=== PATIENT | female | born 1950 | race Caucasian/White ===

== ENCOUNTER → 2016-11-29 | Outpatient (CLI) | payer MEDICARE, BC | LOC: MW.LAB 13:45 | PROVIDERS: ATTEND Internal Medicine | DX: N18.3 Chronic kidney disease, stage 3 (moderate) (principal) | CPT/HCPCS: 36415; 80069; 85027 ==

== ENCOUNTER → 2016-11-30 | Outpatient (CLI) | payer MEDICARE, BC | LOC: MW.LAB 10:29 | PROVIDERS: ATTEND Internal Medicine | DX: N18.3 Chronic kidney disease, stage 3 (moderate) (principal) | CPT/HCPCS: 81001; 82570; 84156 ==

== ENCOUNTER → 2017-01-06 | Outpatient (CLI) | payer MEDICARE, BC | LOC: MW.CHRC 10:38 | PROVIDERS: ATTEND Family Medicine | DX: I12.9 Hypertensive chronic kidney disease with stage 1 through stage 4 chronic kidney disease, or unspecified chronic kidney disease (principal); N18.9 Chronic kidney disease, unspecified; Z98.84 Bariatric surgery status; D50.9 Iron deficiency anemia, unspecified; I89.0 Lymphedema, not elsewhere classified; N32.81 Overactive bladder; M17.10 Unilateral primary osteoarthritis, unspecified knee | CPT/HCPCS: 36415; 82607; 82652; 82746; 83550; 99215 ==

== ENCOUNTER → 2017-01-12 | Outpatient (CLI) | payer MEDICARE, BC ==
--- NOTE | 2017-01-12 14:29 | CR ---
EXAMINATION: Bilateral knees HISTORY: Pain COMPARISON: None TECHNIQUE: 4 views bilateral FINDINGS: There is medial subluxation of the femurs bilaterally with severe joint space narrowing wi thin all 3 compartments. Osteophyte formation is noted. No fracture or acute osseous abnormality. No joint effusion or soft tissue swelling. IMPRESSION: Advanced osteoarthritic changes within the knees bilaterally.
== END ==
LOC: MW.CHORTHO 07:35
PROVIDERS: ATTEND Orthopaedic Surgery
DX: M25.561 Pain in right knee (principal); M25.562 Pain in left knee; M17.0 Bilateral primary osteoarthritis of knee
CPT/HCPCS: 20610-50; 735642650; 73564-50; 99204; J1040

== ENCOUNTER 2017-05-04 11:55 | Emergency (ER) | payer MEDICARE, BC ==
[2017-05-04] MEDS ORDERED: Sodium Chloride 0.9% 10 ML Syringe FLUSH PRN (11:58)
[2017-05-04] MEDS ORDERED: Sodium Chloride 0.9% 2.5 ML Syringe FLUSH PRN (11:58)
--- NOTE | 2017-05-04 12:03 | EDM.PDOC ---
ED HPI GENERAL MEDICAL PROBLEM - General Stated Complaint: CONFUSION Time Seen by Provider: 05/04/17 12:02 Source of Information: Reports: Patient, EMS History Limitations: Reports: Altered Mental Status - History of Present Illness INITIAL COMMENTS - FREE TEXT/NARRATIVE: HISTORY AND PHYSICAL: []66-year-old female brought in by EMS altered mental status History of Present Illness: []Last known normal was last night about 10:30 PM. noted at 9:30 this morning she was still in bed and not acting appropriately. Unable to follow commands well in the ambulance. Patient is recently been in [place] has since been back has been treated for bronchitis for a couple of weeks and has not been improving and her symptoms cough. Review of Systems: As per history of present illness and below otherwise all systems reviewed and negative. Past medical history: As per history of present illness and as reviewed below otherwise noncontributory. Surgical history: As per history of present illness and as reviewed below otherwise noncontributory. Social history: No reported history of drug or alcohol abuse. Family history: As per history of present illness and as reviewed below otherwise noncontributory. Physical exam: Alert, has confusion, is able to follow commands on admission, has difficulty answering questions, right-sided facial droop present. HEENT: Atraumatic, normocehpalic, pupils reactive, negative for conjunctival pallor or scleral icterus, mucous membranes moist, throat clear, neck supple, nontender, trachea midline. Lungs: Clear to auscultation, breath sounds equal bilaterally, chest non tender. Heart: S1S2, regular, negative for clicks, rubs, or JVD. Abdomen: Soft, nondistended, nontender. Negative for masses or hepatossplenmegaly. Negative for costovertebral tenderness. Pelvis: Stable nontender. 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: Deferred. Rectal: Deferred Extremities: Atraumatic, negative for cords or calf pain. Drift to right arm Neurovascular unremarkable. Neuro: Awake, alert, oriented. Cranial nerves II through XII unremarkable. Cerebellum unremarkable. Motor and sensory unremarkable throughout. Exam nonfocal. Have discussed this case with Dr. Quinteros has seen and with Dr. Cruz who is agreed for Diagnostics: [CBC CMP head CT EKG ammonia level UA urine drug screen] Therapeutics: [] Impression: []Altered mental status CVA Plan: []Admission telemetry Definitive disposition and diagnosis as appropriate pending reevaluation and review of above. Onset: Today, Sudden Duration: Hour(s): Location: Reports: Head (Has headache), Face (Mild Right-sided droop), Upper Extremity, Right (Drift) - Related Data Allergies Allergy/AdvReac Type Severity Reaction Status Date / Time adhesive Allergy Rash Verified 08/23/16 17:31 tetanus and diphtheria Allergy Rash Verified 08/23/16 17:31 toxoids [tetanus & diphtheria toxoids] Home Meds: Home Meds Albuterol Sulfate [Proair Hfa] 2 puff INH Q4H PRN 03/11/16 [History] Celecoxib 1 cap PO DAILY 03/11/16 [History] Furosemide [Lasix] 1 tab PO DAILY 03/11/16 [History] Lisinopril 1 tab PO DAILY 03/11/16 [History] Pantoprazole Sodium 1 tab PO BIDAC 03/11/16 [History] Triamcinolone Acetonide [Triamcinolone Acetonide 0.1% Crm] 1 applic TOP ASDIRECTED 03/11/16 [History] traMADol HCl [Ultram] 1 tab PO Q6HR PRN 03/11/16 [History] Aspirin 1 tab PO DAILY 08/23/16 [History] hydrOXYzine HCl [Atarax] 1 tab PO ASDIRECTED 08/23/16 [History] rOPINIRole [Requip] 08/23/16 [History] Past Medical History Other HEENT History: wears glasses Cardiovascular History: Reports: Hypertension Respiratory History: Reports: None Gastrointestinal History: Reports: GERD, Hiatal Hernia 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 History: Reports: None 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: Musculoskeletal History: Reports: Arthritis Neurological History: Reports: Other (See Below) Other Neuro History: has restless leg syndrome Psychiatric History: Reports: None Endocrine/Metabolic History: Reports: Obesity/BMI 30+ Hematologic History: Reports: Blood Transfusion(s) Immunologic History: Reports: None Oncologic (Cancer) History: Reports: None Dermatologic History: Reports: Venous Stasis Dermatitis Other Dermatologic History: has bilateral leg lymphedema, has had open sores on legs in past (healed since January) - Infectious Disease History Infectious Disease History: Reports: None - Past Surgical History GI Surgical History: Reports: Bariatric Procedure, EGD, Other (See Below) Female Surgical History: Reports: Section Social & Family History - Tobacco Use Smoking Status *Q: Never Smoker - Recreational Drug Use Recreational Drug Use: No Drug Use in Last 12 Months: No ED ROS GENERAL - Review of Systems Review Of Systems: ROS reveals no pertinent complaints other than HPI. - Physical Exam Exam: See Below (see dictation) EKG INTERPRETATION EKG Date: 05/04/17 Rhythm: NSR Rate (Beats/Min): 89 Course - Vital Signs Last Recorded V/S: Last Vital Signs Temp 36.3 C 05/04/17 12:31 Pulse 92 05/04/17 13:43 Resp 18 05/04/17 13:43 BP 187/109 H 05/04/17 13:43 Pulse Ox 96 05/04/17 13:43 - Orders/Labs/Meds Orders: Active Orders 24 hr Category Date Time Status Admission Diagnosis [ADT] Stat ADT 05/04/17 14:04 Ordered Patient Status [ADT] Stat ADT 05/04/17 14:06 Ordered Assess Neurological Status [RC] ASDIRECTED Care 05/04/17 11:59 Active Bedrest [RC] ASDIRECTED Care 05/04/17 11:59 Active Blood Glucose Check, Bedside [RC] STAT Care 05/04/17 11:59 Active Cardiac Monitoring [RC] . DIRECTED Care 05/04/17 11:59 Active EKG Documentation Completion [RC] STAT Care 05/04/17 11:59 Active Head of Bed Elevation [RC] ASDIRECTED Care 05/04/17 11:59 Active Height and Weight [RC] UPON Care 05/04/17 11:59 Active Initiate Acute Stroke Protocol [RC] STAT Care 05/04/17 11:59 Active NIH Stroke Scale [RC] ASDIRECTED Care 05/04/17 11:59 Active Nursing Bedside Swallow Screen [RC] ASDIRECTED Care 05/04/17 11:59 Active Oxygen Therapy [RC] ASDIRECTED Care 05/04/17 11:59 Active Stroke Education, General [RC] Click to Edit Care 05/04/17 11:59 Active Vital Signs [RC] Q15M Care 05/04/17 11:59 Active DRUG SCREEN, URINE [URCHEM] Stat Lab 05/04/17 12:01 Uncollected Sodium Chloride 0.9% [Saline Flush] Med 05/04/17 11:58 Active 10 ml FLUSH ASDIRECTED PRN Sodium Chloride 0.9% [Saline Flush] Med 05/04/17 11:58 Active 2.5 ml FLUSH ASDIRECTED PRN Peripheral IV Insertion Adult [OM.PC] Stat Ot 05/04/17 11:59 Ordered Peripheral IV Insertion Adult [OM.PC] Stat [facility] 05/04/17 11:59 Ordered Resuscitation Status Stat Resus Stat 05/04/17 11:58 Ordered Medication Orders Sodium Chloride (Saline Flush) 10 ml FLUSH ASDIRECTED PRN PRN Reason: Keep Vein Open Sodium Chloride (Saline Flush) 2.5 ml FLUSH ASDIRECTED PRN PRN Reason: Keep Vein Open Labs: Laboratory Tests 05/04/17 05/04/17 05/04/17 Range/Units 12:30 12:36 12:36 WBC 6.65 (4.0-11.0) K/uL RBC 3.29 L (4.30-5.90) M/uL Hgb 10.3 L (12.0-16.0) g/dL Hct 32.8 L (36.0-46.0) % MCV 99.7 H (80.0-98.0) fL MCH 31.3 (27.0-32.0) pg MCHC 31.4 (31.0-37.0) g/dL RDW Std Deviation 48.6 (28.0-62.0) fl RDW Coeff of Frank 13 (11.0-15.0) % Plt Count 340 (150-400) K/uL MPV 11.60 (7.40-12.00) fL Neut % (Auto) 58.6 (48.0-80.0) % Lymph % (Auto) 29.6 (16.0-40.0) % Gila % (Auto) 8.7 (0.0-15.0) % Eos % (Auto) 2.3 (0.0-7.0) % Baso % (Auto) 0.8 (0.0-1.5) % Neut # (Auto) 3.9 (1.4-5.7) K/uL Lymph # (Auto) 2.0 (0.6-2.4) K/uL Gila # (Auto) 0.6 (0.0-0.8) K/uL Eos # (Auto) 0.2 (0.0-0.7) K/uL Baso # (Auto) 0.1 (0.0-0.1) K/uL Nucleated RBC % 0.0 /100WBC Nucleated RBCs # 0 K/uL INR 1.04 (0.86-1.11) APTT 25.6 (18.6-31.3) SEC Sodium (136-146) mmol/L Potassium (3.5-5.1) mmol/L Chloride (98-110) mmol/L Carbon Dioxide (21-31) mmol/L BUN (6.0-23.0) mg/dL Creatinine (0.6-1.5) mg/dL Est Cr Clr Drug Dosing mL/min Estimated GFR (MDRD) ml/min Glucose (60-110) mg/dL POC Glucose (60-110) mg/dL Calcium (8.8-10.8) mg/dL Total Bilirubin (0.1-1.5) mg/dL AST (5-40) IU/L ALT (8-54) IU/L Alkaline Phosphatase (40-150) Ammonia (14-68) UG/DL Troponin I < 0.10 (0.0-0.29) NG/ML B-Natriuretic Peptide (<100) PG/ML Total Protein (6.0-8.0) g/dL Albumin (3.4-4.8) g/dL Globulin (2.0-3.5) g/dL Albumin/Globulin Ratio (1.3-2.8) TSH 3rd Generation (0.47-5.0) uIU/mL 05/04/17 05/04/17 05/04/17 Range/Units 12:36 12:36 12:36 WBC (4.0-11.0) K/uL RBC (4.30-5.90) M/uL Hgb (12.0-16.0) g/dL Hct (36.0-46.0) % MCV (80.0-98.0) fL MCH (27.0-32.0) pg MCHC (31.0-37.0) g/dL RDW Std Deviation (28.0-62.0) fl RDW Coeff of Frank (11.0-15.0) % Plt Count (150-400) K/uL MPV (7.40-12.00) fL Neut % (Auto) (48.0-80.0) % Lymph % (Auto) (16.0-40.0) % Gila % (Auto) (0.0-15.0) % Eos % (Auto) (0.0-7.0) % Baso % (Auto) (0.0-1.5) % Neut # (Auto) (1.4-5.7) K/uL Lymph # (Auto) (0.6-2.4) K/uL Gila # (Auto) (0.0-0.8) K/uL Eos # (Auto) (0.0-0.7) K/uL Baso # (Auto) (0.0-0.1) K/uL Nucleated RBC % /100WBC Nucleated RBCs # K/uL INR (0.86-1.11) APTT (18.6-31.3) SEC Sodium 141 (136-146) mmol/L Potassium 4.5 (3.5-5.1) mmol/L Chloride 109 (98-110) mmol/L Carbon Dioxide 22 (21-31) mmol/L BUN 21 (6.0-23.0) mg/dL Creatinine 1.1 (0.6-1.5) mg/dL Est Cr Clr Drug Dosing 41.04 mL/min Estimated GFR (MDRD) 49.5 ml/min Glucose 92 (60-110) mg/dL POC Glucose (60-110) mg/dL Calcium 9.5 (8.8-10.8) mg/dL Total Bilirubin 0.5 (0.1-1.5) mg/dL AST 13 (5-40) IU/L ALT 8 (8-54) IU/L Alkaline Phosphatase 194 H (40-150) Ammonia 31 (14-68) UG/DL Troponin I (0.0-0.29) NG/ML B-Natriuretic Peptide 281 H (<100) PG/ML Total Protein 6.7 (6.0-8.0) g/dL Albumin 3.6 (3.4-4.8) g/dL Globulin 3.1 (2.0-3.5) g/dL Albumin/Globulin Ratio 1.2 L (1.3-2.8) TSH 3rd Generation 2.02 (0.47-5.0) uIU/mL 05/04/17 Range/Units 13:39 WBC (4.0-11.0) K/uL RBC (4.30-5.90) M/uL Hgb (12.0-16.0) g/dL Hct (36.0-46.0) % MCV (80.0-98.0) fL MCH (27.0-32.0) pg MCHC (31.0-37.0) g/dL RDW Std Deviation (28.0-62.0) fl RDW Coeff of Frank (11.0-15.0) % Plt Count (150-400) K/uL MPV (7.40-12.00) fL Neut % (Auto) (48.0-80.0) % Lymph % (Auto) (16.0-40.0) % Gila % (Auto) (0.0-15.0) % Eos % (Auto) (0.0-7.0) % Baso % (Auto) (0.0-1.5) % Neut # (Auto) (1.4-5.7) K/uL Lymph # (Auto) (0.6-2.4) K/uL Gila # (Auto) (0.0-0.8) K/uL Eos # (Auto) (0.0-0.7) K/uL Baso # (Auto) (0.0-0.1) K/uL Nucleated RBC % /100WBC Nucleated RBCs # K/uL INR (0.86-1.11) APTT (18.6-31.3) SEC Sodium (136-146) mmol/L Potassium (3.5-5.1) mmol/L Chloride (98-110) mmol/L Carbon Dioxide (21-31) mmol/L BUN (6.0-23.0) mg/dL Creatinine (0.6-1.5) mg/dL Est Cr Clr Drug Dosing mL/min Estimated GFR (MDRD) ml/min Glucose (60-110) mg/dL POC Glucose 81 (60-110) mg/dL Calcium (8.8-10.8) mg/dL Total Bilirubin (0.1-1.5) mg/dL AST (5-40) IU/L ALT (8-54) IU/L Alkaline Phosphatase (40-150) Ammonia (14-68) UG/DL Troponin I (0.0-0.29) NG/ML B-Natriuretic Peptide (<100) PG/ML Total Protein (6.0-8.0) g/dL Albumin (3.4-4.8) g/dL Globulin (2.0-3.5) g/dL Albumin/Globulin Ratio (1.3-2.8) TSH 3rd Generation (0.47-5.0) uIU/mL Meds: Medications Generic Name Dose Route Start Last Admin Trade Name Freq PRN Reason Stop Dose Admin Sodium Chloride 10 ml 05/04/17 11:58 Saline Flush FLUSH ASDIRECTED PRN Keep Vein Open Sodium Chloride 2.5 ml 05/04/17 11:58 Saline Flush FLUSH ASDIRECTED PRN Keep Vein Open Discontinued Medications Generic Name Dose Route Start Last Admin Trade Name Freq PRN Reason Stop Dose Admin Aspirin 325 mg 05/04/17 12:23 Aspirin PO 05/04/17 12:24 ONETIME ONE Levofloxacin/Dextrose 500 mg/ 100 mls @ 100 mls/hr 05/04/17 12:55 05/04/17 13 :24 Premix IV 05/04/17 13:54 100 mls/hr ONETIME ONE Administration Departure - Departure Time of Disposition: 14:09 Disposition: Admitted As Inpatient 65 Condition: Good Clinical Impression: Altered mental status Qualifiers: Altered mental status type: unspecified Qualified Code(s): R41.82 - Altered mental status, unspecified Stroke Qualifiers: CVA mechanism: unspecified Qualified Code(s): I63.9 - Cerebral infarction, unspecified - Discharge Information Referrals: Rajiv Palomino MD [Primary Care Provider] - - My Orders Last 24 Hours: My Active Orders 05/04/17 11:58 Sodium Chloride 0.9% [Saline Flush] 10 ml FLUSH ASDIRECTED PRN Sodium Chloride 0.9% [Saline Flush] 2.5 ml FLUSH ASDIRECTED PRN Resuscitation Status Stat 05/04/17 11:59 Assess Neurological Status [RC] ASDIRECTED Bedrest [RC] ASDIRECTED Blood Glucose Check, Bedside [RC] STAT Cardiac Monitoring [RC] . DIRECTED EKG Documentation Completion [RC] STAT Head of Bed Elevation [RC] ASDIRECTED Height and Weight [RC] UPON Initiate Acute Stroke Protocol [RC] STAT NIH Stroke Scale [RC] ASDIRECTED Nursing Bedside Swallow Screen [RC] ASDIRECTED Oxygen Therapy [RC] ASDIRECTED Stroke Education, General [RC] Click to Edit Vital Signs [RC] Q15M Peripheral IV Insertion Adult [OM.PC] Stat Peripheral IV Insertion Adult [OM.PC] Stat 05/04/17 12:01 DRUG SCREEN, URINE [URCHEM] Stat 05/04/17 14:04 Admission Diagnosis [ADT] Stat 05/04/17 14:06 Patient Status [ADT] Stat - Assessment/Plan Last 24 Hours: My Active Orders 05/04/17 11:58 Sodium Chloride 0.9% [Saline Flush] 10 ml FLUSH ASDIRECTED PRN Sodium Chloride 0.9% [Saline Flush] 2.5 ml FLUSH ASDIRECTED PRN Resuscitation Status Stat 05/04/17 11:59 Assess Neurological Status [RC] ASDIRECTED Bedrest [RC] ASDIRECTED Blood Glucose Check, Bedside [RC] STAT Cardiac Monitoring [RC] . DIRECTED EKG Documentation Completion [RC] STAT Head of Bed Elevation [RC] ASDIRECTED Height and Weight [RC] UPON Initiate Acute Stroke Protocol [RC] STAT NIH Stroke Scale [RC] ASDIRECTED Nursing Bedside Swallow Screen [RC] ASDIRECTED Oxygen Therapy [RC] ASDIRECTED Stroke Education, General [RC] Click to Edit Vital Signs [RC] Q15M Peripheral IV Insertion Adult [OM.PC] Stat Peripheral IV Insertion Adult [OM.PC] Stat 05/04/17 12:01 DRUG SCREEN, URINE [URCHEM] Stat 05/04/17 14:04 Admission Diagnosis [ADT] Stat 05/04/17 14:06 Patient Status [ADT] Stat
--- NOTE | 2017-05-04 12:18 | CR ---
EXAMINATION: Portable chest radiograph. HISTORY: Shortness of breath. FINDINGS: The trachea is midline. The cardiomediastinal silhouette is within normal limits. No pulmonary infilt rates, effusions or pneumothorax. Mild central vascular prominence. Osseous structures appear unremarkable. IMPRESSION: Mild central vascular prominence, correlate for CHF.
[2017-05-04] MEDS ORDERED: Aspirin 325 MG Tab PO ONE (12:23)
--- NOTE | 2017-05-04 12:24 | CT ---
EXAMINATION: Non contrast CT head. Coronal and sagittal reformats. HISTORY: Stroke code FINDINGS: No evidence of intra or extra axial hemorrhage, mass, midline shift, hydrocephalus or edema. No hypoattenuation changes in the major vascular territories to suggest acute infarct. No abnormal intracranial calcifications are detected. No evidence of substantial vascular calcificat ions. There is an air-fluid level within the left sphenoid sinus and opacification of posterior left ethmoi d air cells. Mastoid air cells are clear. Pituitary fossa appears unremarkable. The orbits and globes are symmetric. Calvarium is intact. No evidence of skull fracture. IMPRESSION: 1. No acute intracranial findings. 2. Probable left sphenoid sinusitis. Above findings were called to the ER at 12:20 PM.
[2017-05-04] MEDS ORDERED: Levofloxacin/Dextrose 5%-Water 500 MG in Premix Bag 1 BAG IV ONE (12:55)
[2017-05-04 15:04] VITALS: BP 196/117
[2017-05-04] MEDS ORDERED: Aspirin 300 MG Supp RECTAL ONE (15:07)
== END 2017-05-04 16:25 | disposition critical access hospital (66) ==
LOC: MW.ED 11:55 → MW.MS 14:09 → UNDOADMIN 14:09 → UNDODISIN 14:10
DX: I63.9 Cerebral infarction, unspecified (principal); R41.82 Altered mental status, unspecified; K21.9 Gastro-esophageal reflux disease without esophagitis; I10 Essential (primary) hypertension; E66.9 Obesity, unspecified; Z79.899 Other long term (current) drug therapy; Z79.82 Long term (current) use of aspirin; Z68.43 Body mass index [BMI] 50.0-59.9, adult
CPT/HCPCS: 36415; 70450; 71010; 80053; 82140; 82962; 83880; 84443; 84484; 85025; 85610; 85730; 93005; 96365; 99285; A9270; J1956; 99284

== ENCOUNTER 2017-06-24 13:04 | Observation (INO) | payer MEDICARE, BC ==
--- NOTE | 2017-06-24 13:36 | EDM.PDOC ---
ED HPI GENERAL MEDICAL PROBLEM - General Chief Complaint: Lower Extremity Injury/Pain Stated Complaint: LEGS HURT Time Seen by Provider: 06/24/17 13:34 Source of Information: Reports: Patient, Family History Limitations: Reports: No Limitations - History of Present Illness INITIAL COMMENTS - FREE TEXT/NARRATIVE: History of present illness: [66-year-old female presenting with a protracted history which includes a history of DVT, stroke, lymphedema, respiratory issues. Now stating that her left leg hurts since yesterday, she is increasingly short of breath, and also feels dizzy. Patient easily returned from [place] where she was treated for a recent stroke. Patient is having physical therapy, occupational therapy as well as speech therapy in the home but is presenting at this time with minimal deficit save global generalized weakness.] Review of systems: As per history of present illness and below otherwise all systems reviewed and negative. Past medical history: As per history of present illness and as reviewed below otherwise noncontributory. Surgical history: As per history of present illness and as reviewed below otherwise noncontributory. Social history: No reported history of drug or alcohol abuse. Family history: As per history of present illness and as reviewed below otherwise noncontributory. Physical exam: HEENT: Atraumatic, normocephalic, pupils reactive, negative for conjunctival pallor or scleral icterus, mucous membranes moist, throat clear, neck supple, nontender, trachea midline. Lungs: Clear to auscultation, breath sounds equal bilaterally, chest nontender. Heart: S1S2, regular, negative for clicks, rubs, or JVD. Abdomen: Soft, nondistended, nontender. Negative for masses or hepatosplenomegaly. Negative for costovertebral tenderness. Pelvis: Stable nontender. 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: Deferred. Rectal: Deferred. Extremities: Atraumatic, c/o calf pain. Neurovascular unremarkable. Neuro: Awake, alert, oriented. Cranial nerves II through XII unremarkable. Cerebellum unremarkable. Motor and sensory unremarkable throughout. Exam nonfocal. Call Dr. Cruz secondary to patient's generalized weakness and nonfocal complaints of dizziness. CT with no interval change and reflecting the subacute appearing infarct that was diagnosed previously which patient was sent to [place] for. Patient indicates she is getting PT, OT, and speech at home but is showing actually no deficits at the bedside and was able to get into the gurney herself with minimal standby assist. Diagnostics: [EKG, CBC, CMP, UA, troponin, d-dimer, PT/INR, I CT of the head without contrast , venous Doppler of left lower extremity] Therapeutics: [] Impression: [#1 generalized weakness #2 leg pain #3 dehydration] Plan: [Admit to observation] Definitive disposition and diagnosis as appropriate pending reevaluation and review of above. left leg Pain Score (Numeric/FACES): 7 - Related Data Allergies Allergy/AdvReac Type Severity Reaction Status Date / Time adhesive Allergy Rash Verified 06/24/17 13:16 tetanus and diphtheria Allergy Rash Verified 06/24/17 13:16 toxoids [tetanus & diphtheria toxoids] Home Meds: Home Meds Albuterol Sulfate [Proair Hfa] 2 puff INH Q4H PRN 03/11/16 [History] Celecoxib 1 cap PO DAILY 03/11/16 [History] Furosemide [Lasix] 1 tab PO DAILY 03/11/16 [History] Lisinopril 1 tab PO DAILY 03/11/16 [History] Pantoprazole Sodium 1 tab PO BIDAC 03/11/16 [History] Triamcinolone Acetonide [Triamcinolone Acetonide 0.1% Crm] 1 applic TOP ASDIRECTED 03/11/16 [History] traMADol HCl [Ultram] 1 tab PO Q6HR PRN 03/11/16 [History] Aspirin 1 tab PO DAILY 08/23/16 [History] hydrOXYzine HCl [Atarax] 1 tab PO ASDIRECTED 08/23/16 [History] rOPINIRole [Requip] 08/23/16 [History] Past Medical History - Past Health History Medical/Surgical History: Denies Medical/Surgical History HEENT History: Reports: Impaired Vision Other HEENT History: wears glasses Cardiovascular History: Reports: Hypertension Respiratory History: Reports: None Gastrointestinal History: Reports: GERD, Hiatal Hernia 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 History: Reports: 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: Musculoskeletal History: Reports: Arthritis Neurological History: Reports: CVA, Other (See Below) Other Neuro History: has restless leg syndrome Psychiatric History: Reports: None Endocrine/Metabolic History: Reports: Obesity/BMI 30+ Hematologic History: Reports: Blood Transfusion(s) Immunologic History: Reports: None Oncologic (Cancer) History: Reports: None Dermatologic History: Reports: Venous Stasis Dermatitis Other Dermatologic History: has bilateral leg lymphedema, has had open sores on legs in past (healed since January) - Infectious Disease History Infectious Disease History: Reports: None - Past Surgical History Head Surgeries/Procedures: Reports: None GI Surgical History: Reports: Bariatric Procedure, EGD, Other (See Below) Female Surgical History: Reports: Section Social & Family History - Family History Family Medical History: Noncontributory - Tobacco Use Smoking Status *Q: Never Smoker - Caffeine Use Caffeine Use: Reports: Tea Caffeine Use Comment: occasional - Recreational Drug Use Recreational Drug Use: No Drug Use in Last 12 Months: No Review of Systems - Review of Systems Review Of Systems: See Below (History of present illness) ED EXAM, GENERAL - Physical Exam Exam: See Below (History of present illness) Course - Vital Signs Last Recorded V/S: Last Vital Signs Temp 36.4 C 06/24/17 13:04 Pulse 102 H 06/24/17 13:04 Resp 20 06/24/17 13:04 BP 140/86 06/24/17 13:04 Pulse Ox 94 L 06/24/17 13:04 - Orders/Labs/Meds Orders: Active Orders 24 hr Category Date Time Status EKG Documentation Completion [RC] STAT Care 06/24/17 13:31 Active Chest 2V [CR] Stat Exams 06/24/17 13:31 Taken Head wo Cont [CT] Stat Exams 06/24/17 13:32 Taken Venous Doppler Lwr Ext Lt [US] Stat Exams 06/24/17 13:36 Taken Labs: Laboratory Tests 06/24/17 06/24/17 06/24/17 Range/Units 14:02 14:30 15:35 WBC 5.60 (4.0-11.0) K/uL RBC 3.80 L (4.30-5.90) M/uL Hgb 11.8 L (12.0-16.0) g/dL Hct 36.1 (36.0-46.0) % MCV 95.0 (80.0-98.0) fL MCH 31.1 (27.0-32.0) pg MCHC 32.7 (31.0-37.0) g/dL RDW Std Deviation 46.9 (28.0-62.0) fl RDW Coeff of Frank 14 (11.0-15.0) % Plt Count 236 (150-400) K/uL MPV 12.70 H (7.40-12.00) fL Neut % (Auto) 68.2 (48.0-80.0) % Lymph % (Auto) 22.7 (16.0-40.0) % [place] % (Auto) 6.1 (0.0-15.0) % Eos % (Auto) 2.5 (0.0-7.0) % Baso % (Auto) 0.5 (0.0-1.5) % Neut # (Auto) 3.8 (1.4-5.7) K/uL Lymph # (Auto) 1.3 (0.6-2.4) K/uL [place] # (Auto) 0.3 (0.0-0.8) K/uL Eos # (Auto) 0.1 (0.0-0.7) K/uL Baso # (Auto) 0.0 (0.0-0.1) K/uL Nucleated RBC % 0.0 /100WBC Nucleated RBCs # 0 K/uL INR 3.21 H (0.86-1.11) D-Dimer, Quantitative 0.40 (0.0-0.52) mg/LFEU Sodium 141 (136-146) mmol/L Potassium 5.1 (3.5-5.1) mmol/L Chloride 116 H (98-110) mmol/L Carbon Dioxide 13 L (21-31) mmol/L BUN 42 H (6.0-23.0) mg/dL Creatinine 2.3 H (0.6-1.5) mg/dL Est Cr Clr Drug Dosing TNP Estimated GFR (MDRD) 21.2 ml/min Glucose 104 (60-110) mg/dL Calcium 9.7 (8.8-10.8) mg/dL Total Bilirubin 0.7 (0.1-1.5) mg/dL AST 21 (5-40) IU/L ALT 16 (8-54) IU/L Alkaline Phosphatase 168 H (40-150) Troponin I < 0.10 (0.0-0.29) NG/ML Total Protein 6.7 (6.0-8.0) g/dL Albumin 3.6 (3.4-4.8) g/dL Globulin 3.1 (2.0-3.5) g/dL Albumin/Globulin Ratio 1.2 L (1.3-2.8) Amylase 32 (10-90) U/L Lipase 17 (7-80) U/L Urine Color Urine Appearance Urine pH (5.0-8.0) Ur Specific [place] (1.001-1.035) Urine Protein (NEGATIVE) mg/dL Urine Glucose (UA) (NEGATIVE) mg/dL Urine Ketones (NEGATIVE) mg/dL Urine Occult Blood (NEGATIVE) Urine Nitrite (NEGATIVE) Urine Bilirubin (NEGATIVE) Urine Urobilinogen (<2.0) EU/dL Ur Leukocyte Esterase (NEGATIVE) Urine RBC (0-2/HPF) Urine WBC (0-5/HPF) Ur Epithelial Cells (NONE-FEW) Urine Bacteria (NEGATIVE) 06/24/17 Range/Units 16:05 WBC (4.0-11.0) K/uL RBC (4.30-5.90) M/uL Hgb (12.0-16.0) g/dL Hct (36.0-46.0) % MCV (80.0-98.0) fL MCH (27.0-32.0) pg MCHC (31.0-37.0) g/dL RDW Std Deviation (28.0-62.0) fl RDW Coeff of Frank (11.0-15.0) % Plt Count (150-400) K/uL MPV (7.40-12.00) fL Neut % (Auto) (48.0-80.0) % Lymph % (Auto) (16.0-40.0) % Kings % (Auto) (0.0-15.0) % Eos % (Auto) (0.0-7.0) % Baso % (Auto) (0.0-1.5) % Neut # (Auto) (1.4-5.7) K/uL Lymph # (Auto) (0.6-2.4) K/uL [place] # (Auto) (0.0-0.8) K/uL Eos # (Auto) (0.0-0.7) K/uL Baso # (Auto) (0.0-0.1) K/uL Nucleated RBC % /100WBC Nucleated RBCs # K/uL INR (0.86-1.11) D-Dimer, Quantitative (0.0-0.52) mg/LFEU Sodium (136-146) mmol/L Potassium (3.5-5.1) mmol/L Chloride (98-110) mmol/L Carbon Dioxide (21-31) mmol/L BUN (6.0-23.0) mg/dL Creatinine (0.6-1.5) mg/dL Est Cr Clr Drug Dosing Estimated GFR (MDRD) ml/min Glucose (60-110) mg/dL Calcium (8.8-10.8) mg/dL Total Bilirubin (0.1-1.5) mg/dL AST (5-40) IU/L ALT (8-54) IU/L Alkaline Phosphatase (40-150) Troponin I (0.0-0.29) NG/ML Total Protein (6.0-8.0) g/dL Albumin (3.4-4.8) g/dL Globulin (2.0-3.5) g/dL Albumin/Globulin Ratio (1.3-2.8) Amylase (10-90) U/L Lipase (7-80) U/L Urine Color YELLOW Urine Appearance CLEAR Urine pH 5.5 (5.0-8.0) Ur Specific [place] 1.015 (1.001-1.035) Urine Protein NEGATIVE (NEGATIVE) mg/dL Urine Glucose (UA) NEGATIVE (NEGATIVE) mg/dL Urine Ketones NEGATIVE (NEGATIVE) mg/dL Urine Occult Blood TRACE-LYSED (NEGATIVE) Urine Nitrite NEGATIVE (NEGATIVE) Urine Bilirubin NEGATIVE (NEGATIVE) Urine Urobilinogen 0.2 (<2.0) EU/dL Ur Leukocyte Esterase TRACE (NEGATIVE) Urine RBC 0-1 (0-2/HPF) Urine WBC 0-2 (0-5/HPF) Ur Epithelial Cells MODERATE (NONE-FEW) Urine Bacteria FEW (NEGATIVE) Meds: Medications Discontinued Medications Generic Name Dose Route Start Last Admin Trade Name Freq PRN Reason Stop Dose Admin Sodium Chloride 1,000 mls @ 999 mls/hr 06/24/17 13:31 Normal Saline IV 06/24/17 14:31 .Bolus ONE Departure - Departure Time of Disposition: 16:42 Disposition: Refer to Observation Condition: Good Clinical Impression: Weakness - Discharge Information Referrals: Rajiv Palomino MD [Primary Care Provider] - Forms: ED Department Discharge - My Orders Last 24 Hours: My Active Orders 06/24/17 13:31 EKG Documentation Completion [RC] STAT Chest 2V [CR] Stat 06/24/17 13:32 Head wo Cont [CT] Stat 06/24/17 13:36 Venous Doppler Lwr Ext Lt [US] Stat - Assessment/Plan Last 24 Hours: My Active Orders 06/24/17 13:31 EKG Documentation Completion [RC] STAT Chest 2V [CR] Stat 06/24/17 13:32 Head wo Cont [CT] Stat 06/24/17 13:36 Venous Doppler Lwr Ext Lt [US] Stat
[2017-06-24 14:59] LABS: CHLORIDE,CL 116 mmol/L (98-110); SODIUM,NA 141 mmol/L (136-146)
[2017-06-24] MEDS: Sodium Chloride 0.9% 1,000 ML IV ONE ×2 (15:40→18:40)
--- NOTE | 2017-06-24 16:54 | PCM.HP ---
H&P History of Present Illness - General Date of Service: 06/24/17 Admit Problem/Dx: Admission Diagnosis/Problem Admission Diagnosis/Problem Acute kidney injury - History of Present Illness Initial Comments - Free Text/Narative: 66 yo female with pmh of atrial fibrillation, chronic lower extremity lymphedema , CKD, and recent hospitalization in [facility] for stroke. She is currenlty on Warfarin. She was doing well at home until recently she had been performing poorly with her physical therapy due to generalized weakness and shortness of breath. She denies any chest pain or orthopnea. She reports taking lasix due to her leg edema. left leg Pain Score (Numeric/FACES): 7 - Related Data Allergies/Adverse Reactions: Allergies Allergy/AdvReac Type Severity Reaction Status Date / Time adhesive Allergy Rash Verified 06/24/17 13:16 tetanus and diphtheria Allergy Rash Verified 06/24/17 13:16 toxoids [tetanus & diphtheria toxoids] Home Medications: Home Meds Albuterol Sulfate [Proair Hfa] 2 puff INH Q4H PRN 03/11/16 [History] Furosemide [Lasix] 1 tab PO DAILY PRN 03/11/16 [History] Lisinopril 0.5 tab PO PCLUNCH 03/11/16 [History] Pantoprazole Sodium 1 tab PO BIDAC 03/11/16 [History] Triamcinolone Acetonide [Triamcinolone Acetonide 0.1% Crm] 1 applic TOP DAILY [History] traMADol HCl [Ultram] 1 tab PO Q6HR PRN 03/11/16 [History] hydrOXYzine HCl [Atarax] 1 tab PO TID PRN 08/23/16 [History] rOPINIRole [Requip] 0.25 mg PO BEDTIME 08/23/16 [History] Calcium Carbonate/Vitamin D3 [Cvs Calcium 500 + Vit D Tablet] 500 mg PO DAILY [History] Metoprolol Tartrate 25 mg PO BID 06/24/17 [History] Nystatin [Nystop] 15 gm TOP TID 06/24/17 [History] Sodium Bicarbonate 1 tab PO ACLUNCH 06/24/17 [History] Warfarin [Coumadin] 3 mg PO BEDTIME 06/24/17 [History] atorvaSTATin [Lipitor] 40 mg PO BEDTIME 06/24/17 [History] Past Medical History - Past Health History Medical/Surgical History: Denies Medical/Surgical History HEENT History: Reports: Impaired Vision Other HEENT History: wears glasses Cardiovascular History: Reports: Hypertension Respiratory History: Reports: None Gastrointestinal History: Reports: GERD, Hiatal Hernia 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 History: Reports: 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: Musculoskeletal History: Reports: Arthritis Neurological History: Reports: CVA, Other (See Below) Other Neuro History: has restless leg syndrome Psychiatric History: Reports: None Endocrine/Metabolic History: Reports: Obesity/BMI 30+ Hematologic History: Reports: Blood Transfusion(s) Immunologic History: Reports: None Oncologic (Cancer) History: Reports: None Dermatologic History: Reports: Venous Stasis Dermatitis Other Dermatologic History: has bilateral leg lymphedema, has had open sores on legs in past (healed since January) - Infectious Disease History Infectious Disease History: Reports: None - Past Surgical History Head Surgeries/Procedures: Reports: None GI Surgical History: Reports: Bariatric Procedure, EGD, Other (See Below) Female Surgical History: Reports: Section Social & Family History - Family History Family Medical History: Noncontributory - Tobacco Use Smoking Status *Q: Never Smoker - Caffeine Use Caffeine Use: Reports: Tea Caffeine Use Comment: occasional - Recreational Drug Use Recreational Drug Use: No Drug Use in Last 12 Months: No H&P Review of Systems - Review of Systems: Review Of Systems: ROS reveals no pertinent complaints other than HPI. Exam - Exam Exam: See Below - Vital Signs Vital Signs: Last Vital Signs Temp 36.4 C 06/24/17 13:04 Pulse 102 H 06/24/17 13:04 Resp 20 06/24/17 13:04 BP 140/86 06/24/17 13:04 Pulse Ox 94 L 06/24/17 13:04 Weight: 109.316 kg - Exam General: Alert, Oriented HEENT: Mucosa Moist & [place] Neck: Supple, Trachea Midline Lungs: Clear to Auscultation, Normal Respiratory Effort Cardiovascular: Regular Rate, Irregular Rhythm GI/Abdominal Exam: Normal Bowel Sounds, Soft, Non-Tender, Other (obese) Extremities: Non-Tender (+3 edema) Skin: Warm, Dry, Intact - Patient Data Lab Results Last 24 hrs: Laboratory Results - last 24 hr 06/24/17 06/24/17 06/24/17 Range/Units 14:02 14:30 15:35 WBC 5.60 (4.0-11.0) K/uL RBC 3.80 L (4.30-5.90) M/uL Hgb 11.8 L (12.0-16.0) g/dL Hct 36.1 (36.0-46.0) % MCV 95.0 (80.0-98.0) fL MCH 31.1 (27.0-32.0) pg MCHC 32.7 (31.0-37.0) g/dL RDW Std Deviation 46.9 (28.0-62.0) fl RDW Coeff of Frank 14 (11.0-15.0) % Plt Count 236 (150-400) K/uL MPV 12.70 H (7.40-12.00) fL Neut % (Auto) 68.2 (48.0-80.0) % Lymph % (Auto) 22.7 (16.0-40.0) % [place] % (Auto) 6.1 (0.0-15.0) % Eos % (Auto) 2.5 (0.0-7.0) % Baso % (Auto) 0.5 (0.0-1.5) % Neut # (Auto) 3.8 (1.4-5.7) K/uL Lymph # (Auto) 1.3 (0.6-2.4) K/uL [place] # (Auto) 0.3 (0.0-0.8) K/uL Eos # (Auto) 0.1 (0.0-0.7) K/uL Baso # (Auto) 0.0 (0.0-0.1) K/uL Nucleated RBC % 0.0 /100WBC Nucleated RBCs # 0 K/uL INR 3.21 H (0.86-1.11) D-Dimer, Quantitative 0.40 (0.0-0.52) mg/LFEU Sodium 141 (136-146) mmol/L Potassium 5.1 (3.5-5.1) mmol/L Chloride 116 H (98-110) mmol/L Carbon Dioxide 13 L (21-31) mmol/L BUN 42 H (6.0-23.0) mg/dL Creatinine 2.3 H (0.6-1.5) mg/dL Est Cr Clr Drug Dosing TNP Estimated GFR (MDRD) 21.2 ml/min Glucose 104 (60-110) mg/dL Calcium 9.7 (8.8-10.8) mg/dL Total Bilirubin 0.7 (0.1-1.5) mg/dL AST 21 (5-40) IU/L ALT 16 (8-54) IU/L Alkaline Phosphatase 168 H (40-150) Troponin I < 0.10 (0.0-0.29) NG/ML Total Protein 6.7 (6.0-8.0) g/dL Albumin 3.6 (3.4-4.8) g/dL Globulin 3.1 (2.0-3.5) g/dL Albumin/Globulin Ratio 1.2 L (1.3-2.8) Amylase 32 (10-90) U/L Lipase 17 (7-80) U/L Urine Color Urine Appearance Urine pH (5.0-8.0) Ur Specific [place] (1.001-1.035) Urine Protein (NEGATIVE) mg/dL Urine Glucose (UA) (NEGATIVE) mg/dL Urine Ketones (NEGATIVE) mg/dL Urine Occult Blood (NEGATIVE) Urine Nitrite (NEGATIVE) Urine Bilirubin (NEGATIVE) Urine Urobilinogen (<2.0) EU/dL Ur Leukocyte Esterase (NEGATIVE) Urine RBC (0-2/HPF) Urine WBC (0-5/HPF) Ur Epithelial Cells (NONE-FEW) Urine Bacteria (NEGATIVE) 06/24/17 Range/Units 16:05 WBC (4.0-11.0) K/uL RBC (4.30-5.90) M/uL Hgb (12.0-16.0) g/dL Hct (36.0-46.0) % MCV (80.0-98.0) fL MCH (27.0-32.0) pg MCHC (31.0-37.0) g/dL RDW Std Deviation (28.0-62.0) fl RDW Coeff of Frank (11.0-15.0) % Plt Count (150-400) K/uL MPV (7.40-12.00) fL Neut % (Auto) (48.0-80.0) % Lymph % (Auto) (16.0-40.0) % [place] % (Auto) (0.0-15.0) % Eos % (Auto) (0.0-7.0) % Baso % (Auto) (0.0-1.5) % Neut # (Auto) (1.4-5.7) K/uL Lymph # (Auto) (0.6-2.4) K/uL [place] # (Auto) (0.0-0.8) K/uL Eos # (Auto) (0.0-0.7) K/uL Baso # (Auto) (0.0-0.1) K/uL Nucleated RBC % /100WBC Nucleated RBCs # K/uL INR (0.86-1.11) D-Dimer, Quantitative (0.0-0.52) mg/LFEU Sodium (136-146) mmol/L Potassium (3.5-5.1) mmol/L Chloride (98-110) mmol/L Carbon Dioxide (21-31) mmol/L BUN (6.0-23.0) mg/dL Creatinine (0.6-1.5) mg/dL Est Cr Clr Drug Dosing Estimated GFR (MDRD) ml/min Glucose (60-110) mg/dL Calcium (8.8-10.8) mg/dL Total Bilirubin (0.1-1.5) mg/dL AST (5-40) IU/L ALT (8-54) IU/L Alkaline Phosphatase (40-150) Troponin I (0.0-0.29) NG/ML Total Protein (6.0-8.0) g/dL Albumin (3.4-4.8) g/dL Globulin (2.0-3.5) g/dL Albumin/Globulin Ratio (1.3-2.8) Amylase (10-90) U/L Lipase (7-80) U/L Urine Color YELLOW Urine Appearance CLEAR Urine pH 5.5 (5.0-8.0) Ur Specific [place] 1.015 (1.001-1.035) Urine Protein NEGATIVE (NEGATIVE) mg/dL Urine Glucose (UA) NEGATIVE (NEGATIVE) mg/dL Urine Ketones NEGATIVE (NEGATIVE) mg/dL Urine Occult Blood TRACE-LYSED (NEGATIVE) Urine Nitrite NEGATIVE (NEGATIVE) Urine Bilirubin NEGATIVE (NEGATIVE) Urine Urobilinogen 0.2 (<2.0) EU/dL Ur Leukocyte Esterase TRACE (NEGATIVE) Urine RBC 0-1 (0-2/HPF) Urine WBC 0-2 (0-5/HPF) Ur Epithelial Cells MODERATE (NONE-FEW) Urine Bacteria FEW (NEGATIVE) Result Diagrams: 06/25/17 05:34 06/25/17 05:34 *Q Meaningful Use (ADM) - VTE *Q VTE Criteria *Q: - Stroke *Q Stroke Criteria *Q: - AMI *Q AMI Criteria *Q: Problem List Initiated/Reviewed/Updated: Yes Orders Last 24hrs: Active Orders 24 hr Category Date Time Status Patient Status [ADT] Stat ADT 06/24/17 16:44 Active EKG Documentation Completion [RC] STAT Care 06/24/17 13:31 Active Chest 2V [CR] Stat Exams 06/24/17 13:31 Taken Head wo Cont [CT] Stat Exams 06/24/17 13:32 Taken Venous Doppler Lwr Ext Lt [US] Stat Exams 06/24/17 13:36 Taken Metoprolol Tartrate [Lopressor] Med 06/24/17 17:00 Ordered 25 mg PO Q12HR Medication Orders Metoprolol Tartrate (Lopressor) 25 mg PO Q12HR FELICITY Assessment/Plan Comment:: 66 yo female with recent CVA who presents with generalized weakness and acute on chronic kidney disease. Patient reports feeling better after fluid bolus in ED. Even though she has significant leg edema she may be intravascularly dehydrated. We will monitor overnight and gently hydrate with IV fluids. Patient will likely need a tighter compression stocking for her lymphedema. Discharge plan: Patient was monitored overnight and this morning is feeling stronger and denies any shortness of breath. Creatinine has improved to 1.9. Patient is requesting discharge. She is discharged home to have follow up with [facility].
[2017-06-24] MEDS ORDERED: Sodium Chloride 0.9% 1,000 ML IV SCH (17:15)
[2017-06-24] MEDS: Metoprolol Tartrate 25 MG Tab PO SCH ×2 (17:24→21:51)
[2017-06-24] MEDS: Nystatin Topical Powder 15 GM Bottle TOP SCH (21:50)
[2017-06-25] MEDS: Nystatin Topical Powder 15 GM Bottle TOP SCH (06:52)
[2017-06-25 08:33] VITALS: BP 153/90
[2017-06-25] MEDS: Metoprolol Tartrate 25 MG Tab PO SCH (08:33)
--- NOTE | 2017-06-25 19:35 | US ---
EXAM DATE: 06/24/17 PATIENT'S AGE: 66 Patient: ERIKA FOLEY Facility: [place], [place] Site . Site : 1950 Study: US Extremity Venous LEFT [id number] 3:13:59 PM Ordering Physician: Doctor Kaur Final Report: Indication: Left lower extremity pain and swelling. The left common femoral, femoral and popliteal veins are compressible along their entire extent and exhibit normal Doppler waveform. The left profunda vein is patent. Impression: No evidence of left lower extremity deep venous thrombosis. Dictated by Albina Schulte MD @ Jun 24 2017 3:24PM (Electronic Signature) Report Signed by Proxy. BAY
--- NOTE | 2017-06-25 19:36 | CT ---
EXAM DATE: 06/24/17 PATIENT'S AGE: 66 Patient: ERIKA FOLEY Facility: [place], [place] Site . Site : 1950 Study: CT Head WO CONT [id number] 3:25:02 PM Ordering Physician: Doctor Kaur Final Report: INDICATION: Pain. TECHNIQUE: CT head without contrast. COMPARISON: 05/04/2017. FINDINGS: CSF spaces: Within normal limits for age. Brain parenchyma: There is a subacute appearing regional area of ischemia in the left frontal cortex. There was no abnormality in this location on the prior exam. No other signs of ischemia. No hemorrhage or mass effect. No midline shift. Skull base and calvarium: The visualized paranasal sinuses and mastoid air cells demonstrate no acute or significant findings. The visualized orbits are grossly unremarkable. No skull fractures. IMPRESSION: A circumscribed subacute appearing infarct is present in the left frontal cortex. No sign of hemorrhagic transformation or other significant abnormality. Dictated by Iker Berumen MD @ 06/24/2017 3:52:01 PM Dictated by: Iekr Berumen MD @ 06/24/2017 15:52:06 (Electronic Signature) Report Signed by Proxy. BAY
--- NOTE | 2017-06-25 19:37 | CR ---
EXAM DATE: 06/24/17 PATIENT'S AGE: 66 Patient: ERIKA FOLEY Facility: [place], [place] Site . Site : 1950 Study: XRay Chest [id number] 3:29:37 PM Ordering Physician: Doctor Kaur Final Report: HISTORY: Shortness of breath. Findings: Two views of the chest are provided. Comparison is made to previous study dated 05/04/2017. The lungs are normally expanded and clear. No pleural effusion or pneumothorax is seen. Cardiac silhouette size appears mildly enlarged. Dictated by Wesly Ram MD @ Jun 24 2017 3:36PM (Electronic Signature) Report Signed by Proxy. BAY
[2017-06-25] MEDS ORDERED: rOPINIRole 0.5 MG Tab PO SCH (21:00)
== END 2017-06-25 10:30 | disposition home or self-care (01) ==
LOC: MW.ED 13:04 → MW.MS 16:44
PROVIDERS: ADMIT Internal Medicine; ATTEND Internal Medicine
DX: R53.1 Weakness (principal); R06.02 Shortness of breath; N17.9 Acute kidney failure, unspecified; I12.9 Hypertensive chronic kidney disease with stage 1 through stage 4 chronic kidney disease, or unspecified chronic kidney disease; N18.9 Chronic kidney disease, unspecified; K21.9 Gastro-esophageal reflux disease without esophagitis; M19.90 Unspecified osteoarthritis, unspecified site; G25.81 Restless legs syndrome; Z86.73 Personal history of transient ischemic attack (TIA), and cerebral infarction without residual deficits; Z88.7 Allergy status to serum and vaccine; Z91.048 Other nonmedicinal substance allergy status; Z79.01 Long term (current) use of anticoagulants; Z79.899 Other long term (current) drug therapy; Z98.890 Other specified postprocedural states
CPT/HCPCS: 36415; 70450; 71020; 80048; 80053; 81001; 82150; 83690; 84484; 85025; 85379; 85610; 93005; 93971; 96360; 96361; 99285; A9270; G0378; J7040; 99283

== ENCOUNTER 2018-03-20 08:47 | Day surgery (SDC) | payer MEDICARE, BC ==
[~2018-03-20 08:47] MED LIST: Lactated Ringers 1,000 ML IV SCH; Lidocaine 2% 5 ML SDV ONE; Midazolam 1 MG/ML 2 ML SDV ONE; Propofol 200 MG/20 ML SDV ONE; Sodium Chloride 0.9% 10 ML Syringe FLUSH PRN; Sodium Chloride 0.9% 2.5 ML Syringe FLUSH PRN; fentaNYL 100 MCG/2 ML SDV ONE
--- NOTE | 2018-03-20 10:22 | PCM.PREANE ---
Preanesthetic Assessment - Anesthesia/Transfusion/Family Hx Anesthesia History: Prior Anesthesia Without Reaction Family History of Anesthesia Reaction: No Transfusion History: No Prior Transfusion(s) - Review of Systems General: No Symptoms Pulmonary: No Symptoms Cardiovascular: No Symptoms Gastrointestinal: No Symptoms Neurological: No Symptoms Other: Reports: None - Physical Assessment NPO Status Date: 03/19/18 NPO Status Time: 19:00 O2 Sat by Pulse Oximetry: 97 Respiratory Rate: 18 Vital Signs: Last Vital Signs Temp 36.9 C 03/20/18 09:45 Pulse 79 03/20/18 09:45 Resp 18 03/20/18 09:45 BP 132/62 03/20/18 09:45 Pulse Ox 97 03/20/18 09:45 Height: 1.6 m Weight: 107.501 kg ASA Class: 3 Mental Status: Alert & Oriented x3 Dentition: Reports: Normal Dentition ROM/Head Extension: Full Lungs: Clear to Auscultation, Normal Respiratory Effort Cardiovascular: Regular Rate, Regular Rhythm - Allergies Allergies/Adverse Reactions: Allergies Allergy/AdvReac Type Severity Reaction Status Date / Time adhesive Allergy Rash Verified 03/15/18 08:15 tetanus and diphtheria Allergy Rash Verified 03/15/18 08:15 toxoids [tetanus & diphtheria toxoids] - Anesthesia Plan Pre-Op Medication Ordered: None - Acknowledgements Anesthesia Type Planned: MAC Pt an Appropriate Candidate for the Planned Anesthesia: Yes Alternatives and Risks of Anesthesia Discussed w Pt/Guardian: Yes Pt/Guardian Understands and Agrees with Anesthesia Plan: Yes Additional Comments: PMH: Morbid obesity, barretts, afib, hx cva, ckd3, htn, rls, RAD, PreAnesthesia Questionnaire - Past Health History Medical/Surgical History: Denies Medical/Surgical History HEENT History: Reports: Impaired Vision Other HEENT History: wears glasses Cardiovascular History: Reports: Afib, Blood Clots/VTE/DVT, High Cholesterol, Hypertension, Other (See Below) Other Cardiovascular History: lymphadema, hx of DVT to left leg Respiratory History: Reports: Asthma Gastrointestinal History: Reports: GERD Other Gastrointestinal History: barretts esphagus 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 History: Reports: Other (See Below) Other 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 History: recent UTI 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: Musculoskeletal History: Reports: Arthritis Neurological History: Reports: CVA, Other (See Below) Other Neuro History: has restless leg syndrome, stroke in may, 2017 Psychiatric History: Reports: Depression Endocrine/Metabolic History: Reports: Obesity/BMI 30+ Hematologic History: Reports: Anticoagulation Therapy Immunologic History: Reports: None Oncologic (Cancer) History: Reports: None Dermatologic History: Reports: Venous Stasis Dermatitis Other Dermatologic History: has bilateral leg lymphedema, has had open sores on legs in past - Infectious Disease History Infectious Disease History: Reports: None - Past Surgical History Head Surgeries/Procedures: Reports: None HEENT Surgical History: Reports: None Cardiovascular Surgical History: Reports: None Respiratory Surgical History: Reports: None GI Surgical History: Reports: Bariatric Procedure, Cholecystectomy, Colonoscopy , EGD, Hernia, Inguinal, Other (See Below) Other GI Surgeries/Procedures: states hiatal hernia was repaired during gastric lap-band procedure Female Surgical History: Reports: Section Endocrine Surgical History: Reports: None Neurological Surgical History: Reports: None Musculoskeletal Surgical History: Reports: None Oncologic Surgical History: Reports: None Dermatological Surgical History: Reports: None - SUBSTANCE USE Smoking Status *Q: Never Smoker Recreational Drug Use History: No - HOME MEDS Home Medications: Home Meds Lisinopril 20 mg PO DAILY 03/11/16 [History] Pantoprazole Sodium 1 tab PO BIDAC 03/11/16 [History] Triamcinolone Acetonide [Triamcinolone Acetonide 0.1% Crm] 1 applic TOP DAILY PRN 03/11/16 [History] traMADol HCl [Ultram] 1 tab PO Q6HR PRN 03/11/16 [History] hydrOXYzine HCl [Atarax] 1 tab PO TID PRN 08/23/16 [History] Metoprolol Tartrate 25 mg PO BID 06/24/17 [History] Warfarin [Coumadin] 4 mg PO ASDIRECTED 06/24/17 [History] atorvaSTATin [Lipitor] 40 mg PO BEDTIME 06/24/17 [History] Albuterol [Ventolin HFA] 1 - 2 puff INH ASDIRECTED PRN 03/15/18 [History] Calcium Carbonate/Vitamin D3 [Calcium 500 + Vit D Caplet] 1 tab PO DAILY [History] Enoxaparin [Lovenox] 1 injection SUBCUT ASDIRECTED 03/15/18 [History] Fluticasone Propionate [Flonase Allergy Relief] 1 spray NASBOTH ASDIRECTED PRN 03/15/18 [History] Folic Acid 1 mg PO DAILY 03/15/18 [History] Sertraline HCl 50 mg PO DAILY 03/15/18 [History] Sodium Bicarbonate 0.5 tab PO BID 03/15/18 [History] - CURRENT (IN HOUSE) MEDS Current Meds: Current Medications Lactated Ringer's (Ringers, Lactated) 1,000 mls @ 125 mls/hr IV ASDIRECTED FELICITY Last Admin: 03/20/18 10:14 Dose: 125 mls/hr Sodium Chloride (Saline Flush) 10 ml FLUSH ASDIRECTED PRN PRN Reason: Keep Vein Open Sodium Chloride (Saline Flush) 2.5 ml FLUSH ASDIRECTED PRN PRN Reason: Keep Vein Open Discontinued Medications Fentanyl (Sublimaze) Confirm Administered Dose 100 mcg .ROUTE .STK-MED ONE Stop: 03/20/18 08:04 Lidocaine (Xylocaine-Mpf 2%) Confirm Administered Dose 5 ml .ROUTE .STK-MED ONE Stop: 03/20/18 08:03 Midazolam HCl (Versed 1 Mg/Ml) Confirm Administered Dose 2 mg .ROUTE .STK-MED ONE Stop: 03/20/18 08:04 Propofol (Diprivan 20 Ml) Confirm Administered Dose 400 mg .ROUTE .STK-MED ONE Stop: 03/20/18 08:04
--- NOTE | 2018-03-20 11:34 | PCM.POSTAN ---
POST ANESTHESIA ASSESSMENT - MENTAL STATUS Mental Status: Alert, Oriented - RESPIRATORY Respiratory Status: Respiratory Rate WNL, Airway Patent, O2 Saturation Stable - CARDIOVASCULAR CV Status: Pulse Rate WNL, Blood Pressure Stable - GASTROINTESTINAL GI Status: No Symptoms - POST OP HYDRATION Hydration Status: Adequate & Stable
--- NOTE | 2018-03-20 11:36 | PCM.OPNOTE ---
- General Post-Op/Procedure Note Date of Surgery/Procedure: 03/20/18 Operative Procedure(s): Diagnostic EGD and colonoscopy Findings: Normal healthy appearing esopphageal mucosa with no evidence of inflammation or dysplasia. Diverticulosis Pre Op Diagnosis: History of barretts esophagus, screening colonoscopy Post-Op Diagnosis: diverticulosis Anesthesia Technique: RONALD Primary Surgeon: Milagros Barkley Condition: Good
--- NOTE | 2018-03-20 12:18 | PCM48HPAN ---
Post Anesthesia Note - EVALUATION WITHIN 48HRS OF ANESTHETIC Vital Signs in Normal Range: Yes Patient Participated in Evaluation: Yes Respiratory Function Stable: Yes Airway Patent: Yes Cardiovascular Function Stable: Yes Hydration Status Stable: Yes Pain Control Satisfactory: Yes Nausea and Vomiting Control Satisfactory: Yes Mental Status Recovered: Yes Resp Rate: 16
[2018-03-20 12:27] VITALS: BP 133/64
--- NOTE | 2018-03-20 12:58 | OR ---
SURGEON: THANIA BENAVIDES MD DATE OF PROCEDURE: 03/20/2018 PREOPERATIVE DIAGNOSES: 1. History of Soriano's esophagus. 2. Screening colonoscopy. POSTOPERATIVE DIAGNOSES: 1. Normal esophagus. 2. Diverticulosis. PROCEDURE PERFORMED: Diagnostic EGD and screening colonoscopy. ANESTHESIA: MAC. INSTRUMENT USED: Olympus endoscope and colonoscope. EXTENT OF EXAM: To the second portion of duodenum, to the cecum. PREPARATION: Good. LIMITATIONS: None. INDICATION FOR EXAMINATION: The patient is a 67-year-old female with a history of Soriano's esophagus. Her previous EGD showed normal-appearing mucosa. No history of this and no evidence of Soriano's esophagus. She is due for a repeat scope. Her last colonoscopy was in 2003 and was normal. She is due for a screening colonoscopy. I discussed both procedures, expected perioperative course, and risks including bleeding, infection, or damage to surrounding structures including perforation. The patient verbalized understanding and wishes to proceed. PROCEDURE IN DETAIL: The patient was brought into the endoscopy suite and placed in the left lateral decubitus position. A time-out was completed verifying the patient's name, age, date of , allergies, and procedure to be performed. Monitored anesthesia care was induced and a bite block was placed in the patient's mouth. Continuous oxygen was provided via nasal cannula throughout the procedure. After adequate sedation was achieved, a well-lubricated endoscope was placed in the patient's mouth and advanced carefully under direct visualization into the second portion of the duodenum. This appeared normal and a photograph was taken. The scope was then fully withdrawn while examining the color, texture, anatomy, and integrity of the mucosa of the upper GI tract. The duodenum appeared normal. The scope was brought into the stomach. A photograph was taken of the pylorus and this appeared normal. The scope was retroflexed and I was able to see the proximal half of the stomach. The patient has a gastric band in place and I was able to see the anatomic changes due to this. A photograph was taken. The scope was then straightened out and fully withdrawn. The gastric mucosa itself was free of inflammation or ulceration. The scope was then brought into the proximal one-third of the stomach. I was able to see where the gastric band caused narrowing in the stomach. A photograph was taken. This appeared normal. The gastric pouch did not show any evidence of inflammation. There was no evidence of any band erosion. The scope was brought into the distal esophagus and a photograph taken of the Z-line. This appeared normal. The distal half of the esophagus was healthy and pink. There were no dysplastic changes or evidence of any inflammation. Because this appeared still normal, I did not take any biopsies. The remainder of the esophageal mucosa was free of pathology. The scope was then removed from the patient and this portion of procedure was terminated. A digital rectal exam was performed. This exam was within normal limits. A well-lubricated colonoscope was inserted in the rectum and advanced under direct visualization to the level of cecum. The cecum was identified by both visual and anatomic landmarks. A photograph was taken the cecal cap, however, I was unable to retroflex the scope within the cecum due to looping of the scope more proximally. The scope was then fully withdrawn while examining the color, texture, anatomy, and integrity of the mucosa from the cecum to the anal canal. The patient was found to have diverticulosis within the sigmoid colon. The scope was then brought into the rectum and retroflexed to allow visualization of the anal canal opening. This appeared normal and a photograph was taken. The scope was then straightened out and removed from the patient. The [id number] time was 6 minutes. The patient tolerated the procedure well and was taken to PACU in stable condition. ENDOSCOPIC DIAGNOSES: 1. Normal EGD. 2. Diverticulosis. RECOMMENDATIONS: I visited with the patient in the postoperative care area. She is aware of her diverticulosis diagnosis. She's had several EGDs now which were normal. She can follow-up with me in clinic in the future as needed. No need for follow-up EGDs or colonoscopies unless she has concerns. TONNY DE LA VEGA /[id number] BAY
== END 2018-03-20 12:25 | disposition home or self-care (01) ==
LOC: MW.SDS 08:47
PROVIDERS: ATTEND Surgery
DX: Z09 Encounter for follow-up examination after completed treatment for conditions other than malignant neoplasm (principal); Z87.19 Personal history of other diseases of the digestive system; Z12.11 Encounter for screening for malignant neoplasm of colon; K57.30 Diverticulosis of large intestine without perforation or abscess without bleeding; I12.9 Hypertensive chronic kidney disease with stage 1 through stage 4 chronic kidney disease, or unspecified chronic kidney disease; N18.3 Chronic kidney disease, stage 3 (moderate); J45.909 Unspecified asthma, uncomplicated; E66.01 Morbid (severe) obesity due to excess calories; Z68.41 Body mass index [BMI] 40.0-44.9, adult; K21.9 Gastro-esophageal reflux disease without esophagitis; I48.91 Unspecified atrial fibrillation; Z79.01 Long term (current) use of anticoagulants; F32.1 Major depressive disorder, single episode, moderate; Z79.899 Other long term (current) drug therapy; Z88.7 Allergy status to serum and vaccine; Z91.048 Other nonmedicinal substance allergy status; Z98.84 Bariatric surgery status
CPT/HCPCS: 43235; G0121; J2250; J2704; J3010; J7120

== ENCOUNTER 2019-04-10 11:55 | Emergency (ER) | payer MEDICARE, BC ==
[2019-04-10] MEDS ORDERED: methylPREDNISolone Sodium Succinate 125 MG/2 ML SDV IM ONE (12:21)
--- NOTE | 2019-04-10 12:26 | EDM.PDOC ---
ED HPI GENERAL MEDICAL PROBLEM - General Chief Complaint: Allergic Reaction Stated Complaint: POSS ALLERGIC REACTION Time Seen by Provider: 04/10/19 12:08 Source of Information: Reports: Patient History Limitations: Reports: No Limitations - History of Present Illness INITIAL COMMENTS - FREE TEXT/NARRATIVE: HISTORY AND PHYSICAL: History of present illness: Patient is a 68-year-old female who presents to the emergency room with complaints of a rash to torso and upper extremities x 2 days. She recently completed clindamycin for a lower extremity cellulitis. A few days ago she was started on Synthroid for hypothyroidism. She is concerned she may be allergic to her Synthroid (since she finished the clindamycin). She does mention that while ambulating she does have some shortness of breath although denies any chest pain. Shortness of breath is resolved with rest. States that she may be "over thinking it" and have some anxiety related to her rash. Patient denies any fever, chills, headache, change in vision, syncope or near syncope. Denies any chest pain, back pain or cough. Denies any abdominal pain, nausea, vomiting, diarrhea, constipation or dysuria. Has not noted any blood in urine or stool. Patient has been eating and drinking appropriately. Review of systems: As per history of present illness and below otherwise all systems reviewed and negative. Past medical history: As per history of present illness and as reviewed below otherwise noncontributory. Surgical history: As per history of present illness and as reviewed below otherwise noncontributory. Social history: See social history for further information Family history: As per history of present illness and as reviewed below otherwise noncontributory. Physical exam: General: Well-developed and well-nourished 68-year-old female. Alert and oriented. Nontoxic appearing and in no acute distress. HEENT: Atraumatic, normocephalic, pupils equal and reactive bilaterally, negative for conjunctival pallor or scleral icterus, mucous membranes moist, throat clear, neck supple, nontender, trachea midline. No drooling or trismus noted. No meningeal signs. No hot potato voice noted. Lungs: Diminished to bases - otherwise clear to auscultation, breath sounds equal bilaterally, chest nontender. Heart: Tachycardia with S1S2 - no overt murmur Abdomen: Soft, nondistended, obese, nontender. Negative for masses. Negative for costovertebral tenderness. Pelvis: Stable nontender. Skin: Fine raised rash noted to upper extremities and torso. Intact, warm, dry. No lesions noted. Extremities: Atraumatic, moves all extremities per self without difficulty or deficits, negative for cords or calf pain. Neurovascular unremarkable. Neuro: Awake, alert, oriented. Cranial nerves II through XII unremarkable. Cerebellum unremarkable. Motor and sensory unremarkable throughout. Exam nonfocal. Notes: Patient does have a history of atrial fibrillation; an EKG done. Shoes Afib with rate of 111. Standard labs being done at this time, along with PO metoprolol. Patient aware and agreeable. Lab work is unremarkable. CXR shows no acute findings. Vital signs have improved. Dr Palomino was contacted about his patient; he would like the patient to continue taking her Synthroid. The rash may be due to to the clindamycin that she has completed. We will give Solu-Medrol while here and prescribed a Medrol Dosepak for home. He would like her to follow up with him, she has an appointment on 04/12/[address] Palomino. All information was shared with the patient. Supportive care measures were reviewed and discussed. Voices understanding and is agreeable to plan of care. Denies any further questions or concerns at this time. Diagnostics: EKG, CBC, CMP, CXR Therapeutics: Solu-Medrol, Metoprolol Prescription: Medrol Dosepak Impression: Rash Hx of Afib Plan: 1. While symptomatic continue to routinely take Benadryl 50mg (non-drowsy) as directed. Take the Medrol dose pack as prescribed. 2. You may use topical calamine lotion, cool tempid oatmeal baths, Aveeno bath/ lotions. 3. Continue taking your home medications. Please follow up with Dr Palomino for re- evaluation. Return to the ED as needed and as discussed. Definitive disposition and diagnosis as appropriate pending reevaluation and review of above. - Related Data Allergies Allergy/AdvReac Type Severity Reaction Status Date / Time adhesive Allergy Rash Verified 08/20/18 13:32 latex Allergy Other Verified 04/10/19 12:12 tetanus and diphtheria Allergy Rash Verified 08/20/18 13:32 toxoids [tetanus & diphtheria toxoids] Home Meds: Home Meds Pantoprazole Sodium 40 mg PO BIDAC 03/11/16 [History] Metoprolol Tartrate 25 mg PO DAILY 06/24/17 [History] Warfarin [Coumadin] 2.5 mg PO TUTHSA@1400 06/24/17 [History] atorvaSTATin [Lipitor] 40 mg PO BEDTIME 06/24/17 [History] Albuterol [Ventolin HFA] 1 - 2 puff INH Q4HRRT PRN 03/15/18 [History] Fluticasone Propionate [Flonase Allergy Relief] 1 spray NASBOTH DAILY PRN [History] Sertraline HCl 100 mg PO DAILY 03/15/18 [History] Sodium Bicarbonate 1 tab PO BID 03/15/18 [History] Lisinopril 5 mg PO DAILY 08/20/18 [History] Warfarin [Coumadin] 5 mg PO SUMOWEFR@1400 08/20/18 [History] hydrOXYzine HCl [hydrOXYzine] 25 mg PO TID 08/20/18 [History] rOPINIRole [Requip] 1 mg PO BEDTIME 08/20/18 [History] methylPREDNISolone [Medrol] 1 dose PO DAILY 6 Days #1 dospk 04/10/19 [Rx] Past Medical History - Past Health History Medical/Surgical History: Denies Medical/Surgical History HEENT History: Reports: Impaired Vision Other HEENT History: wears glasses Cardiovascular History: Reports: Afib, Hypertension Other Cardiovascular History: lymphadema, hx of DVT to left leg Respiratory History: Reports: None Gastrointestinal History: Reports: GERD, Hiatal Hernia Other Gastrointestinal History: barretts esphagus 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 History: Reports: None Other 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 History: recent UTI 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: Musculoskeletal History: Reports: Arthritis Neurological History: Reports: CVA, Other (See Below) Other Neuro History: has restless leg syndrome Psychiatric History: Reports: None Endocrine/Metabolic History: Reports: Obesity/BMI 30+ Hematologic History: Reports: Blood Transfusion(s) Immunologic History: Reports: None Oncologic (Cancer) History: Reports: None Dermatologic History: Reports: Venous Stasis Dermatitis Other Dermatologic History: has bilateral leg lymphedema, has had open sores on legs in past - Infectious Disease History Infectious Disease History: Reports: None - Past Surgical History Head Surgeries/Procedures: Reports: None GI Surgical History: Reports: Bariatric Procedure, Cholecystectomy, EGD, Other ( See Below) Female Surgical History: Reports: Section Social & Family History - Family History Family Medical History: Noncontributory Cardiac: Reports: Hypertension - Tobacco Use Smoking Status *Q: Never Smoker - Caffeine Use Caffeine Use: Reports: Tea Caffeine Use Comment: occasional - Recreational Drug Use Recreational Drug Use: No ED ROS ALLERGIC REACTION - Review of Systems Review Of Systems: ROS reveals no pertinent complaints other than HPI. ED EXAM GENERAL NO PERIP PULSE - Physical Exam Exam: See Below (See dictation) Course - Vital Signs Last Recorded V/S: Last Vital Signs Temp 97.9 F 04/10/19 14:06 Pulse 107 H 04/10/19 14:06 Resp 20 04/10/19 14:06 BP 159/87 H 04/10/19 14:06 Pulse Ox 100 04/10/19 14:06 - Orders/Labs/Meds Orders: Active Orders 24 hr Category Date Time Status EKG Documentation Completion [RC] STAT Care 04/10/19 12:32 Active Labs: Laboratory Tests 04/10/19 04/10/19 Range/Units 13:46 13:46 WBC 8.52 (4.0-11.0) K/uL RBC 3.99 L (4.30-5.90) M/uL Hgb 11.9 L (12.0-16.0) g/dL Hct 37.2 (36.0-46.0) % MCV 93.2 (80.0-98.0) fL MCH 29.8 (27.0-32.0) pg MCHC 32.0 (31.0-37.0) g/dL RDW Std Deviation 51.9 (28.0-62.0) fl RDW Coeff of Frank 15 (11.0-15.0) % Plt Count 321 (150-400) K/uL MPV 11.10 (7.40-12.00) fL Neut % (Auto) 66.8 (48.0-80.0) % Lymph % (Auto) 20.7 (16.0-40.0) % Todd % (Auto) 7.5 (0.0-15.0) % Eos % (Auto) 4.5 (0.0-7.0) % Baso % (Auto) 0.5 (0.0-1.5) % Neut # (Auto) 5.7 (1.4-5.7) K/uL Lymph # (Auto) 1.8 (0.6-2.4) K/uL Todd # (Auto) 0.6 (0.0-0.8) K/uL Eos # (Auto) 0.4 (0.0-0.7) K/uL Baso # (Auto) 0.0 (0.0-0.1) K/uL Nucleated RBC % 0.0 /100WBC Nucleated RBCs # 0 K/uL Sodium 141 (136-145) mmol/L Potassium 5.2 H (3.5-5.1) mmol/L Chloride 107 (98-107) mmol/L Carbon Dioxide 19.7 L (21.0-32.0) mmol/L BUN 42 H (7.0-18.0) mg/dL Creatinine 1.5 H (0.6-1.0) mg/dL Est Cr Clr Drug Dosing 30.57 mL/min Estimated GFR (MDRD) 34.4 ml/min Glucose 86 (74-106) mg/dL Calcium 9.8 (8.5-10.1) mg/dL Total Bilirubin 0.6 (0.2-1.0) mg/dL AST 37 (15-37) IU/L ALT 46 (14-63) IU/L Alkaline Phosphatase 267 H (46-116) U/L Total Protein 7.5 (6.4-8.2) g/dL Albumin 3.8 (3.4-5.0) g/dL Globulin 3.7 (2.6-4.0) g/dL Albumin/Globulin Ratio 1.0 (0.9-1.6) Meds: Medications Discontinued Medications Generic Name Dose Route Start Last Admin Trade Name Freq PRN Reason Stop Dose Admin Methylprednisolone Sodium Succinate 125 mg 04/10/19 12:21 04/10/19 12:34 Solu-Medrol IM 04/10/19 12:22 125 mg ONETIME ONE Administration Metoprolol Tartrate 25 mg 04/10/19 13:01 04/10/19 13:20 Lopressor PO 04/10/19 13:02 25 mg ONETIME ONE Administration Departure - Departure Time of Disposition: 12:40 Disposition: Home, Self-Care 01 Clinical Impression: Rash in adult, History of atrial fibrillation - Discharge Information Prescriptions: methylPREDNISolone [Medrol] 1 dose PO DAILY 6 Days #1 dospk Instructions: Rash, [id number] Referrals: PCP,None [Primary Care Provider] - Additional Instructions: The following information is given to patients seen in the emergency department who are being discharged to home. This information is to outline your options for follow-up care. We provide all patients seen in our emergency department with a follow-up referral. The need for follow-up, as well as the timing and circumstances, are variable depending upon the specifics of your emergency department visit. If you don't have a primary care physician on staff, we will provide you with a referral. We always advise you to contact your personal physician following an emergency department visit to inform them of the circumstance of the visit and for follow-up with them and/or the need for any referrals to a consulting specialist. The emergency department will also refer you to a specialist when appropriate. This referral assures that you have the opportunity for follow-up care with a specialist. All of these measure are taken in an effort to provide you with optimal care, which includes your follow-up. Under all circumstances we always encourage you to contact your private physician who remains a resource for coordinating your care. When calling for follow-up care, please make the office aware that this follow-up is from your recent emergency room visit. If for any reason you are refused follow-up, please contact the [facility] Department at and asked to speak to the emergency department charge nurse. [facility] [address] [place] [id number] [address] [id number] 1. While symptomatic continue to routinely take Benadryl 50mg (non-drowsy) as directed. Take the Medrol dose pack as prescribed. 2. You may use topical calamine lotion, cool tempid oatmeal baths, Aveeno bath/ lotions. 3. Continue taking your home medications. Please follow up with Dr Palomino for re- evaluation. Return to the ED as needed and as discussed. - My Orders Last 24 Hours: My Active Orders 04/10/19 12:32 EKG Documentation Completion [RC] STAT - Assessment/Plan Last 24 Hours: My Active Orders 04/10/19 12:32 EKG Documentation Completion [RC] STAT
[2019-04-10] MEDS ORDERED: Metoprolol Tartrate 25 MG Tab PO ONE (13:01)
--- NOTE | 2019-04-10 13:52 | CR ---
INDICATION: Chest pain, shortness of breath. COMPARISON: Portable chest dated 08/20/2018 TECHNIQUE: Two view chest. FINDINGS: The lungs are clear. The heart, mediastinum and pulmonary vessels are of normal size. There is no evidence of pleural fluid. The patient is status post prior laparoscopic gastric banding. IMPRESSION: Negative chest. Dictated by Dar Lara MD @ Apr 10 2019 1:50PM Signed by Dr. Dar Lara @ Apr 10 2019 1:51PM
[2019-04-10 14:06] VITALS: BP 159/87; PULSE 107
[2019-04-10 14:29] LABS: CARBON DIOXIDE,CO2 19.7 mmol/L (21.0-32.0); POTASSIUM,K 5.2 mmol/L (3.5-5.1)
== END 2019-04-10 14:48 | disposition home or self-care (01) ==
LOC: MW.ED 11:55
DX: R21 Rash and other nonspecific skin eruption (principal); I48.91 Unspecified atrial fibrillation; I10 Essential (primary) hypertension; Z86.73 Personal history of transient ischemic attack (TIA), and cerebral infarction without residual deficits; M19.90 Unspecified osteoarthritis, unspecified site; E66.9 Obesity, unspecified; K21.9 Gastro-esophageal reflux disease without esophagitis; Z86.718 Personal history of other venous thrombosis and embolism; Z98.84 Bariatric surgery status; Z90.49 Acquired absence of other specified parts of digestive tract; Z91.09 Other allergy status, other than to drugs and biological substances; Z91.040 Latex allergy status; Z88.7 Allergy status to serum and vaccine; Z79.01 Long term (current) use of anticoagulants; Z79.899 Other long term (current) drug therapy
CPT/HCPCS: 36415; 71046; 80053; 85025; 93005; 96372; 99283; A9270; J2930

== ENCOUNTER 2019-04-20 15:05 | Inpatient (IN) | payer MEDICARE, BC ==
--- NOTE | 2019-04-20 15:25 | EDM.PDOC ---
ED HPI GENERAL MEDICAL PROBLEM - General Chief Complaint: Respiratory Problem Stated Complaint: SHORTNESS OF BREATH AND LEG DRAINING Time Seen by Provider: 04/20/19 15:23 - History of Present Illness INITIAL COMMENTS - FREE TEXT/NARRATIVE: HISTORY AND PHYSICAL: History of present illness: Patient 68-year-old white female history of chronic atrial fibrillation who presents with a concern of shortness of breath and increased leg swelling erythema and discomfort she is seen by physical therapy for chronic peripheral edema . She denies fever chills denies chest pain or other concern Review of systems: As per history of present illness and below otherwise all systems reviewed and negative. Past medical history: As per history of present illness and as reviewed below otherwise noncontributory. Surgical history: As per history of present illness and as reviewed below otherwise noncontributory. Social history: No reported history of drug or alcohol abuse. Family history: As per history of present illness and as reviewed below otherwise noncontributory. Physical exam: HEENT: Atraumatic, normocephalic, pupils reactive, negative for conjunctival pallor or scleral icterus, mucous membranes moist, throat clear, neck supple, nontender, trachea midline. Lungs: Clear to auscultation, breath sounds equal bilaterally, chest nontender. Heart: S1S2, irregularly irregular, negative for clicks, rubs, or JVD. Abdomen: Soft, nondistended, nontender. Negative for masses or hepatosplenomegaly. Negative for costovertebral tenderness. Pelvis: Stable nontender. 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: Deferred. Rectal: Deferred. Extremities: Marked edema with erythema and weeping inferior extremities Neuro: Awake, alert, oriented. Cranial nerves II through XII unremarkable. Cerebellum unremarkable. Motor and sensory unremarkable throughout. Exam nonfocal. Diagnostics: CBC CMP troponin PT/INR chest x-ray EKG BNP Therapeutics: IV O2 monitor Impression: #1 atrial fibrillation with rapid ventricular response #2 chronic peripheral edema rule out cellulitis #3 dyspnea Definitive disposition and diagnosis as appropriate pending reevaluation and review of above. knees Pain Score (Numeric/FACES): 8 - Related Data Allergies Allergy/AdvReac Type Severity Reaction Status Date / Time adhesive Allergy Rash Verified 04/20/19 15:23 latex Allergy Other Verified 04/20/19 15:23 tetanus and diphtheria Allergy Rash Verified 04/20/19 15:23 toxoids [tetanus & diphtheria toxoids] Home Meds: Home Meds Pantoprazole Sodium 40 mg PO BIDAC 03/11/16 [History] Metoprolol Tartrate 25 mg PO DAILY 06/24/17 [History] Warfarin [Coumadin] 2.5 mg PO TUTHSA@1400 06/24/17 [History] atorvaSTATin [Lipitor] 40 mg PO BEDTIME 06/24/17 [History] Albuterol [Ventolin HFA] 1 - 2 puff INH Q4HRRT PRN 03/15/18 [History] Fluticasone Propionate [Flonase Allergy Relief] 1 spray NASBOTH DAILY PRN [History] Sertraline HCl 50 mg PO DAILY 03/15/18 [History] Sodium Bicarbonate 1 tab PO BID 03/15/18 [History] Lisinopril 5 mg PO DAILY 08/20/18 [History] Warfarin [Coumadin] 5 mg PO SUMOWEFR@1400 08/20/18 [History] hydrOXYzine HCl [hydrOXYzine] 25 mg PO TID 08/20/18 [History] rOPINIRole [Requip] 1 mg PO BEDTIME 08/20/18 [History] methylPREDNISolone [Medrol] 1 dose PO DAILY 6 Days #1 dospk 04/10/19 [Rx] Past Medical History - Past Health History Medical/Surgical History: Denies Medical/Surgical History HEENT History: Reports: Impaired Vision Other HEENT History: wears glasses Cardiovascular History: Reports: Afib, Hypertension Other Cardiovascular History: lymphadema, hx of DVT to left leg Respiratory History: Reports: None Gastrointestinal History: Reports: GERD, Hiatal Hernia Other Gastrointestinal History: barretts esphagus 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 History: Reports: None Other 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 History: recent UTI [employer] UND[employer]UD[employer] History: Reports: Musculoskeletal History: Reports: Arthritis Neurological History: Reports: CVA, Other (See Below) Other Neuro History: has restless leg syndrome Psychiatric History: Reports: None Endocrine/Metabolic History: Reports: Obesity/BMI 30+ Hematologic History: Reports: Blood Transfusion(s) Immunologic History: Reports: None Oncologic (Cancer) History: Reports: None Dermatologic History: Reports: Venous Stasis Dermatitis Other Dermatologic History: has bilateral leg lymphedema, has had open sores on legs in past - Infectious Disease History Infectious Disease History: Reports: None - Past Surgical History Head Surgeries/Procedures: Reports: None GI Surgical History: Reports: Bariatric Procedure, Cholecystectomy, EGD, Other ( See Below) Female Surgical History: Reports: Section Social & Family History - Family History Family Medical History: Noncontributory Cardiac: Reports: Hypertension - Tobacco Use Smoking Status *Q: Never Smoker - Caffeine Use Caffeine Use: Reports: Tea Caffeine Use Comment: occasional - Recreational Drug Use Recreational Drug Use: No ED ROS GENERAL - Review of Systems Review Of Systems: ROS reveals no pertinent complaints other than HPI. ED EXAM, GENERAL - Physical Exam Exam: See Below (See dictation) Course - Vital Signs Last Recorded V/S: Last Vital Signs Temp 36.3 C 04/20/19 15:15 Pulse 123 H 04/20/19 16:21 Resp 18 04/20/19 16:21 BP 154/78 H 04/20/19 16:21 Pulse Ox 98 04/20/19 16:21 - Orders/Labs/Meds Orders: Active Orders 24 hr Category Date Time Status EKG Documentation Completion [RC] STAT Care 04/20/19 15:21 Active UA RFX YANCY AND CULT IF INDIC [URIN] Stat Lab 04/20/19 15:26 Ordered Vancomycin 1 gm Med 04/20/19 16:35 Active Sodium Chloride 0.9% [Normal Saline (AdvBag)] 250 ml IV ONETIME Medication Orders Vancomycin HCl 1 gm/ Sodium (Chloride) 250 mls @ 166 mls/hr IV ONETIME ONE Stop: 04/20/19 18:05 Labs: Laboratory Tests 04/20/19 04/20/19 04/20/19 Range/Units 15:20 15:20 15:20 WBC 15.50 H (4.0-11.0) K/uL RBC 3.97 L (4.30-5.90) M/uL Hgb 11.9 L (12.0-16.0) g/dL Hct 37.0 (36.0-46.0) % MCV 93.2 (80.0-98.0) fL MCH 30.0 (27.0-32.0) pg MCHC 32.2 (31.0-37.0) g/dL RDW Std Deviation 52.7 (28.0-62.0) fl RDW Coeff of Frank 15 (11.0-15.0) % Plt Count 399 (150-400) K/uL MPV 10.80 (7.40-12.00) fL Neut % (Auto) 74.0 (48.0-80.0) % Lymph % (Auto) 15.7 L (16.0-40.0) % [place] % (Auto) 9.1 (0.0-15.0) % Eos % (Auto) 0.9 (0.0-7.0) % Baso % (Auto) 0.3 (0.0-1.5) % Neut # (Auto) 11.5 H (1.4-5.7) K/uL Lymph # (Auto) 2.4 (0.6-2.4) K/uL [place] # (Auto) 1.4 H (0.0-0.8) K/uL Eos # (Auto) 0.1 (0.0-0.7) K/uL Baso # (Auto) 0.0 (0.0-0.1) K/uL Nucleated RBC % 0.0 /100WBC Nucleated RBCs # 0 K/uL INR 3.16 Sodium 140 (136-145) mmol/L Potassium 5.1 (3.5-5.1) mmol/L Chloride 106 (98-107) mmol/L Carbon Dioxide 20.6 L (21.0-32.0) mmol/L BUN 46 H (7.0-18.0) mg/dL Creatinine 1.9 H (0.6-1.0) mg/dL Est Cr Clr Drug Dosing 23.12 mL/min Estimated GFR (MDRD) 26.2 ml/min Glucose 119 H (74-106) mg/dL Calcium 9.7 (8.5-10.1) mg/dL Total Bilirubin 0.7 (0.2-1.0) mg/dL AST 36 (15-37) IU/L ALT 56 (14-63) IU/L Alkaline Phosphatase 239 H (46-116) U/L Troponin I < 0.050 (0.000-0.056) ng/mL B-Natriuretic Peptide (<100) PG/ML Total Protein 7.4 (6.4-8.2) g/dL Albumin 3.2 L (3.4-5.0) g/dL Globulin 4.2 H (2.6-4.0) g/dL Albumin/Globulin Ratio 0.8 L (0.9-1.6) 04/20/19 Range/Units 15:20 WBC (4.0-11.0) K/uL RBC (4.30-5.90) M/uL Hgb (12.0-16.0) g/dL Hct (36.0-46.0) % MCV (80.0-98.0) fL MCH (27.0-32.0) pg MCHC (31.0-37.0) g/dL RDW Std Deviation (28.0-62.0) fl RDW Coeff of Frank (11.0-15.0) % Plt Count (150-400) K/uL MPV (7.40-12.00) fL Neut % (Auto) (48.0-80.0) % Lymph % (Auto) (16.0-40.0) % [place] % (Auto) (0.0-15.0) % Eos % (Auto) (0.0-7.0) % Baso % (Auto) (0.0-1.5) % Neut # (Auto) (1.4-5.7) K/uL Lymph # (Auto) (0.6-2.4) K/uL [place] # (Auto) (0.0-0.8) K/uL Eos # (Auto) (0.0-0.7) K/uL Baso # (Auto) (0.0-0.1) K/uL Nucleated RBC % /100WBC Nucleated RBCs # K/uL INR Sodium (136-145) mmol/L Potassium (3.5-5.1) mmol/L Chloride (98-107) mmol/L Carbon Dioxide (21.0-32.0) mmol/L BUN (7.0-18.0) mg/dL Creatinine (0.6-1.0) mg/dL Est Cr Clr Drug Dosing mL/min Estimated GFR (MDRD) ml/min Glucose (74-106) mg/dL Calcium (8.5-10.1) mg/dL Total Bilirubin (0.2-1.0) mg/dL AST (15-37) IU/L ALT (14-63) IU/L Alkaline Phosphatase (46-116) U/L Troponin I (0.000-0.056) ng/mL B-Natriuretic Peptide 269 H (<100) PG/ML Total Protein (6.4-8.2) g/dL Albumin (3.4-5.0) g/dL Globulin (2.6-4.0) g/dL Albumin/Globulin Ratio (0.9-1.6) Meds: Medications Generic Name Dose Route Start Last Admin Trade Name Freq PRN Reason Stop Dose Admin Vancomycin HCl 1 gm/ Sodium 250 mls @ 166 mls/hr 04/20/19 16:35 Chloride IV 04/20/19 18:05 ONETIME ONE Discontinued Medications Generic Name Dose Route Start Last Admin Trade Name Freq PRN Reason Stop Dose Admin Diltiazem HCl 20 mg 04/20/19 16:34 Diltiazem IVPUSH 04/20/19 16:35 ONETIME ONE Departure - Departure Time of Disposition: 16:39 Disposition: Refer to Observation Condition: Good Clinical Impression: Atrial fibrillation with RVR, Cellulitis - Discharge Information Referrals: PCP,Unknown [Primary Care Provider] - Forms: ED Department Discharge - My Orders Last 24 Hours: My Active Orders 04/20/19 15:21 EKG Documentation Completion [RC] STAT 04/20/19 15:26 UA RFX YANCY AND CULT IF INDIC [URIN] Stat 04/20/19 16:35 Vancomycin 1 gm Sodium Chloride 0.9% [Normal Saline (AdvBag)] 250 ml IV ONETIME - Assessment/Plan Last 24 Hours: My Active Orders 04/20/19 15:21 EKG Documentation Completion [RC] STAT 04/20/19 15:26 UA RFX YANCY AND CULT IF INDIC [URIN] Stat 04/20/19 16:35 Vancomycin 1 gm Sodium Chloride 0.9% [Normal Saline (AdvBag)] 250 ml IV ONETIME
--- NOTE | 2019-04-20 15:52 | CR ---
Indication: Shortness breath. Technique: Single AP portable view of the chest was obtained. Comparison: April 10, 2019. Findings: The heart is borderline in size. The lungs are clear. No infiltrate, pleural effusion, or pneumothorax is identified. Impression: Borderline cardiomegaly. Dictated by Candice Gross MD @ Apr 20 2019 3:49PM Signed by Dr. Candice Gross @ Apr 20 2019 3:50PM
[2019-04-20 15:58] LABS: CHLORIDE,CL 106 mmol/L (98-107); SODIUM,NA 140 mmol/L (136-145)
[2019-04-20] MEDS ORDERED: Diltiazem 25 MG/5 ML SDV IVPUSH ONE (16:34)
[2019-04-20] MEDS ORDERED: Albuterol 8 GM Inhaler INH PRN (17:57)
[2019-04-20] MEDS ORDERED: Albuterol/Ipratropium 3.0-0.5 MG/3 ML Neb Soln NEB PRN (18:01)
[2019-04-20] MEDS ORDERED: Bisacodyl 5 MG Tab PO PRN (18:01)
[2019-04-20] MEDS ORDERED: Temazepam 15 MG Cap PO PRN (18:01)
[2019-04-20] MEDS ORDERED: Ondansetron 4 MG Tab.DIS PO PRN (18:01)
--- NOTE | 2019-04-20 18:14 | PCM.HP.2 ---
H&P History of Present Illness - General Date of Service: 04/20/19 Admit Problem/Dx: Admission Diagnosis/Problem Admission Diagnosis/Problem Atrial fibrillation and flutter Source of Information: Patient, Family History Limitations: Reports: No Limitations - History of Present Illness Initial Comments - Free Text/Narative: The patient is a 68-year-old lady who had presented to the emergency department with acute onset of shortness of breath. The patient reports that she had shortness of breath starting at approximately noon today and she had also noted rapid heart rate. Patient does have a history of atrial fibrillation and chronic anticoagulation. She also has been complaining of increasing pain in both of her lower legs with swelling, erythema and discomfort. The patient says that the pain and swelling of her legs has been going on for approximately 6 weeks. The patient has been seeing physical therapy for treatment of her chronic lymphedema. The patient says that she has no fever but feels "cold all the time". The patient said that she also had been taking some unknown antibiotic, likely Bactrim, which caused her to have a rash. The patient has been in her usual state of health and she has a history of chronic kidney disease and a prior stroke. Onset of Symptoms: Reports: Unknown/Unsure Duration of Symptoms: Reports: Hour(s):, Week(s): Location: Reports: Lower Extremity, Left, Lower Extremity, Right Quality: Reports: Burning, Stabbing, Throbbing Severity: Moderate Improves with: Reports: Rest Worsens with: Reports: Movement Associated Symptoms: Reports: Shortness of Breath knees Pain Score (Numeric/FACES): 8 - Related Data Allergies/Adverse Reactions: Allergies Allergy/AdvReac Type Severity Reaction Status Date / Time adhesive Allergy Rash Verified 04/20/19 15:23 latex Allergy Other Verified 04/20/19 15:23 tetanus and diphtheria Allergy Rash Verified 04/20/19 15:23 toxoids [tetanus & diphtheria toxoids] Home Medications: Home Meds Pantoprazole Sodium 40 mg PO BIDAC 03/11/16 [History] Metoprolol Tartrate 25 mg PO DAILY 06/24/17 [History] Warfarin [Coumadin] 2.5 mg PO TUTHSA@1400 06/24/17 [History] atorvaSTATin [Lipitor] 40 mg PO BEDTIME 06/24/17 [History] Albuterol [Ventolin HFA] 1 - 2 puff INH Q4HRRT PRN 03/15/18 [History] Fluticasone Propionate [Flonase Allergy Relief] 1 spray NASBOTH DAILY PRN [History] Sertraline HCl 50 mg PO DAILY 03/15/18 [History] Sodium Bicarbonate 1 tab PO BID 03/15/18 [History] Lisinopril 5 mg PO DAILY 08/20/18 [History] Warfarin [Coumadin] 5 mg PO SUMOWEFR@1400 08/20/18 [History] hydrOXYzine HCl [hydrOXYzine] 25 mg PO TID 08/20/18 [History] rOPINIRole [Requip] 1 mg PO BEDTIME 08/20/18 [History] methylPREDNISolone [Medrol] 1 dose PO DAILY 6 Days #1 dospk 04/10/19 [Rx] Past Medical History - Past Health History Medical/Surgical History: Denies Medical/Surgical History HEENT History: Reports: Impaired Vision Other HEENT History: wears glasses Cardiovascular History: Reports: Afib, Hypertension Other Cardiovascular History: lymphadema, hx of DVT to left leg Respiratory History: Reports: None Gastrointestinal History: Reports: GERD, Hiatal Hernia Other Gastrointestinal History: barretts esphagus 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 History: Reports: None Other 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 History: recent UTI [employer] History: Reports: Musculoskeletal History: Reports: Arthritis Neurological History: Reports: CVA, Other (See Below) Other Neuro History: has restless leg syndrome Psychiatric History: Reports: None Endocrine/Metabolic History: Reports: Obesity/BMI 30+ Hematologic History: Reports: Blood Transfusion(s) Immunologic History: Reports: None Oncologic (Cancer) History: Reports: None Dermatologic History: Reports: Venous Stasis Dermatitis Other Dermatologic History: has bilateral leg lymphedema, has had open sores on legs in past - Infectious Disease History Infectious Disease History: Reports: None - Past Surgical History Head Surgeries/Procedures: Reports: None GI Surgical History: Reports: Bariatric Procedure, Cholecystectomy, EGD, Other ( See Below) Female Surgical History: Reports: Section Social & Family History - Family History Family Medical History: Noncontributory Cardiac: Reports: Hypertension - Tobacco Use Smoking Status *Q: Never Smoker - Caffeine Use Caffeine Use: Reports: Tea Caffeine Use Comment: occasional - Alcohol Use Alcohol Use History: No - Recreational Drug Use Recreational Drug Use: No - Living Situation & Occupation Living situation: Reports: , with Spouse Occupation: Retired H&P Review of Systems - Review of Systems: Review Of Systems: See Below General: Reports: Chills HEENT: Reports: No Symptoms Pulmonary: Reports: Shortness of Breath. Denies: Wheezing Cardiovascular: Reports: Palpitations Gastrointestinal: Reports: No Symptoms 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: Reports: No Symptoms Musculoskeletal: Reports: Leg Pain Skin: Reports: Rash, Erythema, Wound Psychiatric: Reports: No Symptoms Neurological: Reports: No Symptoms Hematologic/Lymphatic: Reports: No Symptoms Immunologic: Reports: No Symptoms Exam - Exam Exam: See Below - Vital Signs Vital Signs: Last Vital Signs Temp 36.3 C 04/20/19 15:15 Pulse 105 H 04/20/19 17:06 Resp 18 04/20/19 17:06 BP 154/78 H 04/20/19 16:21 Pulse Ox 98 04/20/19 17:06 Weight: 117.934 kg - Exam Quality Assessment: No: Supplemental Oxygen General: Alert, Oriented, Cooperative HEENT: Conjunctiva Clear, EACs Clear, EOMI, Mucosa Moist & [place], Pupils Equal, PERRLA Neck: Supple, Trachea Midline, JVD Lungs: Clear to Auscultation, Normal Respiratory Effort Cardiovascular: Regular Rhythm, Normal S1, Normal S2, Tachycardia GI/Abdominal Exam: Normal Bowel Sounds, Soft, No Distention. No: Guarding, Rigid, Rebound Back Exam: Normal Inspection, Full Range of Motion Extremities: Pedal Edema. No: Normal Inspection (Chronic lymphedema), Normal Range of Motion Skin: Rash, Wound, Other (Open, weeping areas of dermatitis with erythema circumferentially lower extremities.) Neurological: Cranial Nerves Intact Neuro Extensive - Mental Status: Alert Psychiatric: Alert, Normal Affect, Normal Mood - Patient Data Lab Results Last 24 hrs: Laboratory Results - last 24 hr 04/20/19 04/20/19 04/20/19 Range/Units 15:20 15:20 15:20 WBC 15.50 H (4.0-11.0) K/uL RBC 3.97 L (4.30-5.90) M/uL Hgb 11.9 L (12.0-16.0) g/dL Hct 37.0 (36.0-46.0) % MCV 93.2 (80.0-98.0) fL MCH 30.0 (27.0-32.0) pg MCHC 32.2 (31.0-37.0) g/dL RDW Std Deviation 52.7 (28.0-62.0) fl RDW Coeff of Frank 15 (11.0-15.0) % Plt Count 399 (150-400) K/uL MPV 10.80 (7.40-12.00) fL Neut % (Auto) 74.0 (48.0-80.0) % Lymph % (Auto) 15.7 L (16.0-40.0) % [place] % (Auto) 9.1 (0.0-15.0) % Eos % (Auto) 0.9 (0.0-7.0) % Baso % (Auto) 0.3 (0.0-1.5) % Neut # (Auto) 11.5 H (1.4-5.7) K/uL Lymph # (Auto) 2.4 (0.6-2.4) K/uL [place] # (Auto) 1.4 H (0.0-0.8) K/uL Eos # (Auto) 0.1 (0.0-0.7) K/uL Baso # (Auto) 0.0 (0.0-0.1) K/uL Nucleated RBC % 0.0 /100WBC Nucleated RBCs # 0 K/uL INR 3.16 Sodium 140 (136-145) mmol/L Potassium 5.1 (3.5-5.1) mmol/L Chloride 106 (98-107) mmol/L Carbon Dioxide 20.6 L (21.0-32.0) mmol/L BUN 46 H (7.0-18.0) mg/dL Creatinine 1.9 H (0.6-1.0) mg/dL Est Cr Clr Drug Dosing 23.12 mL/min Estimated GFR (MDRD) 26.2 ml/min Glucose 119 H (74-106) mg/dL Calcium 9.7 (8.5-10.1) mg/dL Total Bilirubin 0.7 (0.2-1.0) mg/dL AST 36 (15-37) IU/L ALT 56 (14-63) IU/L Alkaline Phosphatase 239 H (46-116) U/L Troponin I < 0.050 (0.000-0.056) ng/mL B-Natriuretic Peptide (<100) PG/ML Total Protein 7.4 (6.4-8.2) g/dL Albumin 3.2 L (3.4-5.0) g/dL Globulin 4.2 H (2.6-4.0) g/dL Albumin/Globulin Ratio 0.8 L (0.9-1.6) 04/20/19 Range/Units 15:20 WBC (4.0-11.0) K/uL RBC (4.30-5.90) M/uL Hgb (12.0-16.0) g/dL Hct (36.0-46.0) % MCV (80.0-98.0) fL MCH (27.0-32.0) pg MCHC (31.0-37.0) g/dL RDW Std Deviation (28.0-62.0) fl RDW Coeff of Frank (11.0-15.0) % Plt Count (150-400) K/uL MPV (7.40-12.00) fL Neut % (Auto) (48.0-80.0) % Lymph % (Auto) (16.0-40.0) % [place] % (Auto) (0.0-15.0) % Eos % (Auto) (0.0-7.0) % Baso % (Auto) (0.0-1.5) % Neut # (Auto) (1.4-5.7) K/uL Lymph # (Auto) (0.6-2.4) K/uL [place] # (Auto) (0.0-0.8) K/uL Eos # (Auto) (0.0-0.7) K/uL Baso # (Auto) (0.0-0.1) K/uL Nucleated RBC % /100WBC Nucleated RBCs # K/uL INR Sodium (136-145) mmol/L Potassium (3.5-5.1) mmol/L Chloride (98-107) mmol/L Carbon Dioxide (21.0-32.0) mmol/L BUN (7.0-18.0) mg/dL Creatinine (0.6-1.0) mg/dL Est Cr Clr Drug Dosing mL/min Estimated GFR (MDRD) ml/min Glucose (74-106) mg/dL Calcium (8.5-10.1) mg/dL Total Bilirubin (0.2-1.0) mg/dL AST (15-37) IU/L ALT (14-63) IU/L Alkaline Phosphatase (46-116) U/L Troponin I (0.000-0.056) ng/mL B-Natriuretic Peptide 269 H (<100) PG/ML Total Protein (6.4-8.2) g/dL Albumin (3.4-5.0) g/dL Globulin (2.6-4.0) g/dL Albumin/Globulin Ratio (0.9-1.6) Result Diagrams: 04/20/19 15:20 04/20/19 15:20 EKG INTERPRETATION EKG Date: 04/20/19 Time: 15:23 Rhythm: A-Flutter (2:1 block) Rate (Beats/Min): 118 [place]: Normal P-Wave: Absent QRS: Normal ST-T: Normal QT: Normal *Q Meaningful Use (ADM) - VTE *Q VTE Mechanical Contraindications *Q: Bilateral Lower Dermatits VTE Pharmacological Contraindications *Q: High INR Value - Problem List (1) Cellulitis SNOMED Code(s): 193948131 ICD Code: L03.90 - CELLULITIS, UNSPECIFIED Status: Acute Priority: High Current Visit: Yes Qualifiers: Site of cellulitis: extremity Site of cellulitis of extremity: lower extremity Laterality: unspecified laterality Qualified Code(s): L03.119 - Cellulitis of unspecified part of limb (2) Chronic kidney disease (CKD), stage III (moderate) SNOMED Code(s): 977071728 ICD Code: N18.3 - CHRONIC KIDNEY DISEASE, STAGE 3 (MODERATE) Status: Chronic Priority: High Current Visit: Yes (3) Atrial flutter by electrocardiogram SNOMED Code(s): 212371624 ICD Code: I48.92 - UNSPECIFIED ATRIAL FLUTTER Status: Chronic Priority: High Current Visit: Yes (4) Chronic anticoagulation SNOMED Code(s): 903373141 ICD Code: Z79.01 - TRAINING ADMINISTRATOR (CURRENT) USE OF ANTICOAGULANTS Status: Chronic Priority: Medium Current Visit: Yes Problem List Initiated/Reviewed/Updated: Yes Orders Last 24hrs: Active Orders 24 hr Category Date Time Status Patient Status [ADT] Stat ADT 04/20/19 16:40 Active Cardiac Monitoring [RC] CONTINUOUS Care 04/20/19 18:02 Ordered EKG Documentation Completion [RC] STAT Care 04/20/19 15:21 Active Oxygen Therapy [RC] PRN Care 04/20/19 18:02 Ordered RT Aerosol Therapy [RC] ASDIRECTED Care 04/20/19 18:04 Ordered Telemetry Monitoring [Cardiac Monitoring] [RC] . Care 04/20/19 17:00 Active DIRECTED Up With Assistance [RC] ASDIRECTED Care 04/20/19 18:01 Ordered VTE/DVT Education [RC] PER UNIT ROUTINE Care 04/20/19 18:02 Ordered Vital Signs [RC] Q4H Care 04/20/19 18:02 Ordered Heart Healthy Diet [DIET] Diet 04/21/19 Breakfast Ordered CBC WITH AUTO DIFF [HEME] AM Lab 04/21/19 05:11 Ordered COMPREHENSIVE METABOLIC PN,CMP [CHEM] AM Lab 04/21/19 05:11 Ordered CULTURE BLOOD [BC] Stat Lab 04/20/19 16:43 Received CULTURE BLOOD [BC] Stat Lab 04/20/19 16:54 Received INR,PT,PROTHROMBIN TIME [COAG] DAILY Lab 04/21/19 05:11 Ordered INR,PT,PROTHROMBIN TIME [COAG] DAILY Lab 04/22/19 05:11 Ordered MAGNESIUM [CHEM] Routine Lab 04/20/19 18:01 Ordered UA RFX YANCY AND CULT IF INDIC [URIN] Stat Lab 04/20/19 15:26 Ordered Albuterol [Ventolin HFA] Med 04/20/19 17:57 Ordered DOSE gm INH Q4HRRT PRN Albuterol/Ipratropium [DuoNeb 3.0-0.5 MG/3 ML] Med 04/20/19 18:01 Ordered 3 ml NEB Q4HRRT PRN Bisacodyl [Dulcolax] Med 04/20/19 18:01 Ordered 5 mg PO DAILY PRN Diltiazem Med 04/20/19 18:10 Ordered 20 mg IVPUSH Q6H PRN Linezolid [Zyvox] 600 mg Med 04/21/19 09:00 Ordered Premix Bag 1 bag IV Q12H Lisinopril [Prinivil] Med 04/21/19 09:00 Ordered 5 mg PO DAILY Metoprolol Tartrate [Lopressor] Med 04/21/19 09:00 Ordered 25 mg PO DAILY Morphine Med 04/20/19 18:01 Ordered 2 mg IVPUSH Q2H PRN Ondansetron [Zofran ODT] Med 04/20/19 18:01 Ordered 4 mg PO Q6H PRN Pantoprazole [ProTONIX] Med 04/21/19 07:30 Ordered 40 mg PO BIDAC Sertraline [Zoloft] Med 04/21/19 09:00 Ordered 50 mg PO DAILY Sodium Bicarbonate Med 04/20/19 21:00 Ordered 1 tab PO BID Temazepam [Restoril] Med 04/20/19 18:01 Ordered 15 mg PO BEDTIME PRN Warfarin [Coumadin] Med 04/23/19 14:00 Ordered 2.5 mg PO TUTHSA@1400 Warfarin [Coumadin] Med 04/21/19 14:00 Ordered 5 mg PO SUMOWEFR@1400 hydrOXYzine HCl [Atarax] Med 04/20/19 22:00 Ordered 25 mg PO TID oxyCODONE Med 04/20/19 18:01 Ordered 5 mg PO Q4H PRN rOPINIRole [Requip] Med 04/20/19 21:00 Ordered 1 mg PO BEDTIME Blood Culture x2 Reflex Set [OM.PC] Stat Oth 04/20/19 16:39 Ordered VTE Mechanical Contraindications [AST] Per Unit Routine Oth 04/20/19 18:01 Ordered VTE Pharmacological Contraindications [AST] Per Unit Oth 04/20/19 18:01 Ordered Routine Resuscitation Status Routine Resus Stat 04/20/19 18:01 Ordered Medication Orders Albuterol (Ventolin Hfa) 0 gm INH Q4H PRN PRN Reason: Shortness of Breath Albuterol/Ipratropium (Duoneb 3.0-0.5 Mg/3 Ml) 3 ml NEB Q4H PRN PRN Reason: Shortness Of Breath/wheezing Bisacodyl (Dulcolax) 5 mg PO DAILY PRN PRN Reason: Constipation Hydroxyzine HCl (Atarax) 25 mg PO TID FELCIITY Linezolid 600 mg/ Premix 300 mls @ 300 mls/hr IV Q12H [facility]IC[facility] Lisinopril (Prinivil) 5 mg PO DAILY [facility] Metoprolol Tartrate (Lopressor) 25 mg PO DAILY [facility] Morphine Sulfate (Morphine) 2 mg IVPUSH Q2H PRN PRN Reason: Pain (severe 7-10) Stop: 04/21/19 18:03 Ondansetron HCl (Zofran Odt) 4 mg PO Q6H PRN PRN Reason: nausea, able to take PO Oxycodone HCl (Oxycodone) 5 mg PO Q4H PRN PRN Reason: Pain (moderate 4-6) Pantoprazole Sodium (Protonix) 40 mg PO BIDAC [facility] Ropinirole HCl (Requip) 1 mg PO BEDTIME [facility] Sertraline HCl (Zoloft) 50 mg PO DAILY [facility] Sodium Bicarbonate (Sodium Bicarbonate) 325 mg PO BID [facility]IC[facility] Temazepam (Restoril) 15 mg PO BEDTIME PRN PRN Reason: Sleep Warfarin Sodium (Coumadin) 2.5 mg PO TUTHSA@1400 [facility] Warfarin Sodium (Coumadin) 5 mg PO SUMOWEFR@1400 [facility] Assessment/Plan Comment:: The patient is a 68-year-old lady who had been admitted to acute hospitalization predominantly because of bilateral lower extremity cellulitis superimposed over chronic lymphedema. The patient also presented secondary to acute shortness of breath and she was found to be in atrial flutter on EKG. This was set at 2-1 block. The patient had been given Cardizem in the emergency department I've also ordered Cardizem 20 mg IV every 6 hours as necessary for heart rate greater than 110. The patient is also chronically anticoagulated and therefore will not need prophylaxis. She also has bilateral circumferential edema and SCDs and antiembolic stockings were also contraindicated. I've also ordered repeat laboratory studies to include INR as well as timed troponins every 6 hours. The patient will also have IV fluids discontinued to avoid fluid overload and she has been placed on heart healthy diet. Out of concern for possible heart failure a 2-D echocardiogram is also been ordered. She will not be on fluid restriction for now. Patient should be appropriate for discharge in 1-2 days. - Mortality Measure Prognosis:: Good
[2019-04-20] MEDS: Diltiazem 25 MG/5 ML SDV IVPUSH PRN (18:56)
[2019-04-20] MEDS: rOPINIRole 1 MG Tab PO SCH (21:17)
[2019-04-20] MEDS: Sodium Bicarbonate 650 MG Tab PO SCH (21:17)
[2019-04-20] MEDS: hydrOXYzine HCl 25 MG Tab PO SCH (21:49)
[2019-04-21] MEDS: Morphine 10 MG/ML Syringe IVPUSH PRN ×2 (00:03→03:00)
[2019-04-21] MEDS: Diltiazem 25 MG/5 ML SDV IVPUSH PRN ×2 (01:23→09:22)
[2019-04-21] MEDS: hydrOXYzine HCl 25 MG Tab PO SCH ×3 (05:14→21:31)
[2019-04-21] MEDS: Pantoprazole 40 MG Tab.CR PO SCH ×2 (06:37→16:46)
[2019-04-21] MEDS: oxyCODONE 5 MG Tab PO PRN ×2 (07:32→21:37)
[2019-04-21] MEDS: Metoprolol Tartrate 25 MG Tab PO SCH (08:39)
[2019-04-21] MEDS: Lisinopril 5 MG Tab PO SCH (08:39)
[2019-04-21] MEDS: Sodium Bicarbonate 650 MG Tab PO SCH ×2 (08:40→21:31)
[2019-04-21] MEDS ORDERED: Sertraline 50 MG Tab PO SCH (09:00)
--- NOTE | 2019-04-21 09:16 | CR ---
HISTORY: Lung crackles. TECHNIQUE: One view chest. COMPARISON: 04/20/2018. FINDINGS: Cardiac size is upper limits of normal accounting for technique. There is no consolidation or pulmonary edema. No pneumothorax or pleural effusion. A gastric lap band is present. IMPRESSION: No acute lung infiltrate or pulmonary edema. Dictated by Quinten Adams MD @ 04/21/2019 9:14:53 AM Dictated by: Quinten Adams MD @ 04/21/2019 09:14:59 (Electronically Signed)
--- NOTE | 2019-04-21 09:49 | PCM.PN ---
- General Info Date of Service: 04/21/19 Admission Dx/Problem (Free Text): Admission Diagnosis/Problem Admission Diagnosis/Problem Atrial fibrillation and flutter Subjective Update: The patient is a 68-year-old lady who had presented to the emergency department with acute shortness of breath. She was noted to be in atrial fibrillation and flutter with rapid ventricular response. The patient does have a chronic history of increasing pain to her lower extremities with increased erythema and swelling as well as discomfort. The patient says that she has been feeling better today. The patient also had a chest x-ray today. The patient also has been tolerating her diet. She has denied any pain. Functional Status: Reports: Pain Controlled - Review of Systems General: Reports: Fatigue HEENT: Reports: No Symptoms Pulmonary: Reports: Shortness of Breath Cardiovascular: Reports: No Symptoms Gastrointestinal: Reports: No Symptoms 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: Reports: No Symptoms Musculoskeletal: Reports: Leg Pain Skin: Reports: Rash Neurological: Reports: No Symptoms Psychiatric: Reports: No Symptoms - Patient Data Vitals - Most Recent: Last Vital Signs Temp 36.4 C 04/21/19 08:42 Pulse 132 H 04/21/19 08:42 Resp 17 04/21/19 08:42 BP 129/86 04/21/19 08:42 Pulse Ox 99 04/21/19 08:42 Weight - Most Recent: 115.802 kg I&O - Last 24 Hours: Intake & Output 04/20/19 04/21/19 04/21/19 22:59 06:59 14:59 Intake Total 100 400 Output Total 800 Balance 100 -400 Lab Results Last 24 Hours: Laboratory Results - last 24 hr 04/20/19 04/20/19 04/20/19 Range/Units 15:20 15:20 15:20 WBC 15.50 H (4.0-11.0) K/uL RBC 3.97 L (4.30-5.90) M/uL Hgb 11.9 L (12.0-16.0) g/dL Hct 37.0 (36.0-46.0) % MCV 93.2 (80.0-98.0) fL MCH 30.0 (27.0-32.0) pg MCHC 32.2 (31.0-37.0) g/dL RDW Std Deviation 52.7 (28.0-62.0) fl RDW Coeff of Frank 15 (11.0-15.0) % Plt Count 399 (150-400) K/uL MPV 10.80 (7.40-12.00) fL Neut % (Auto) 74.0 (48.0-80.0) % Lymph % (Auto) 15.7 L (16.0-40.0) % [place] % (Auto) 9.1 (0.0-15.0) % Eos % (Auto) 0.9 (0.0-7.0) % Baso % (Auto) 0.3 (0.0-1.5) % Neut # (Auto) 11.5 H (1.4-5.7) K/uL Lymph # (Auto) 2.4 (0.6-2.4) K/uL [place] # (Auto) 1.4 H (0.0-0.8) K/uL Eos # (Auto) 0.1 (0.0-0.7) K/uL Baso # (Auto) 0.0 (0.0-0.1) K/uL Nucleated RBC % 0.0 /100WBC Nucleated RBCs # 0 K/uL INR 3.16 Sodium 140 (136-145) mmol/L Potassium 5.1 (3.5-5.1) mmol/L Chloride 106 (98-107) mmol/L Carbon Dioxide 20.6 L (21.0-32.0) mmol/L BUN 46 H (7.0-18.0) mg/dL Creatinine 1.9 H (0.6-1.0) mg/dL Est Cr Clr Drug Dosing 23.12 mL/min Estimated GFR (MDRD) 26.2 ml/min Glucose 119 H (74-106) mg/dL Calcium 9.7 (8.5-10.1) mg/dL Magnesium (1.8-2.4) mg/dL Total Bilirubin 0.7 (0.2-1.0) mg/dL AST 36 (15-37) IU/L ALT 56 (14-63) IU/L Alkaline Phosphatase 239 H (46-116) U/L Troponin I < 0.050 (0.000-0.056) ng/mL B-Natriuretic Peptide (<100) PG/ML Total Protein 7.4 (6.4-8.2) g/dL Albumin 3.2 L (3.4-5.0) g/dL Globulin 4.2 H (2.6-4.0) g/dL Albumin/Globulin Ratio 0.8 L (0.9-1.6) Urine Color Urine Appearance Urine pH (5.0-8.0) Ur Specific [place] (1.001-1.035) Urine Protein (NEGATIVE) mg/dL Urine Glucose (UA) (NEGATIVE) mg/dL Urine Ketones (NEGATIVE) mg/dL Urine Occult Blood (NEGATIVE) Urine Nitrite (NEGATIVE) Urine Bilirubin (NEGATIVE) Urine Urobilinogen (<2.0) EU/dL Ur Leukocyte Esterase (NEGATIVE) Urine RBC (0-2/HPF) Urine WBC (0-5/HPF) Ur Epithelial Cells (NONE-FEW) Urine Bacteria (NEGATIVE) Urine Mucus (NONE-MOD) 04/20/19 04/20/19 04/20/19 Range/Units 15:20 16:53 18:45 WBC (4.0-11.0) K/uL RBC (4.30-5.90) M/uL Hgb (12.0-16.0) g/dL Hct (36.0-46.0) % MCV (80.0-98.0) fL MCH (27.0-32.0) pg MCHC (31.0-37.0) g/dL RDW Std Deviation (28.0-62.0) fl RDW Coeff of Frank (11.0-15.0) % Plt Count (150-400) K/uL MPV (7.40-12.00) fL Neut % (Auto) (48.0-80.0) % Lymph % (Auto) (16.0-40.0) % [place] % (Auto) (0.0-15.0) % Eos % (Auto) (0.0-7.0) % Baso % (Auto) (0.0-1.5) % Neut # (Auto) (1.4-5.7) K/uL Lymph # (Auto) (0.6-2.4) K/uL [place] # (Auto) (0.0-0.8) K/uL Eos # (Auto) (0.0-0.7) K/uL Baso # (Auto) (0.0-0.1) K/uL Nucleated RBC % /100WBC Nucleated RBCs # K/uL INR Sodium (136-145) mmol/L Potassium (3.5-5.1) mmol/L Chloride (98-107) mmol/L Carbon Dioxide (21.0-32.0) mmol/L BUN (7.0-18.0) mg/dL Creatinine (0.6-1.0) mg/dL Est Cr Clr Drug Dosing mL/min Estimated GFR (MDRD) ml/min Glucose (74-106) mg/dL Calcium (8.5-10.1) mg/dL Magnesium 1.5 L (1.8-2.4) mg/dL Total Bilirubin (0.2-1.0) mg/dL AST (15-37) IU/L ALT (14-63) IU/L Alkaline Phosphatase (46-116) U/L Troponin I (0.000-0.056) ng/mL B-Natriuretic Peptide 269 H (<100) PG/ML Total Protein (6.4-8.2) g/dL Albumin (3.4-5.0) g/dL Globulin (2.6-4.0) g/dL Albumin/Globulin Ratio (0.9-1.6) Urine Color YELLOW Urine Appearance SLT CLOUDY Urine pH 5.5 (5.0-8.0) Ur Specific [place] 1.010 (1.001-1.035) Urine Protein NEGATIVE (NEGATIVE) mg/dL Urine Glucose (UA) NEGATIVE (NEGATIVE) mg/dL Urine Ketones NEGATIVE (NEGATIVE) mg/dL Urine Occult Blood NEGATIVE (NEGATIVE) Urine Nitrite POSITIVE H (NEGATIVE) Urine Bilirubin NEGATIVE (NEGATIVE) Urine Urobilinogen 0.2 (<2.0) EU/dL Ur Leukocyte Esterase SMALL H (NEGATIVE) Urine RBC 0-2 (0-2/HPF) Urine WBC 2-5 (0-5/HPF) Ur Epithelial Cells FEW (NONE-FEW) Urine Bacteria 3+ H (NEGATIVE) Urine Mucus LIGHT (NONE-MOD) 04/20/19 04/21/19 04/21/19 Range/Units 21:01 02:50 02:50 WBC 10.30 (4.0-11.0) K/uL RBC 3.38 L (4.30-5.90) M/uL Hgb 10.0 L (12.0-16.0) g/dL Hct 31.5 L (36.0-46.0) % MCV 93.2 (80.0-98.0) fL MCH 29.6 (27.0-32.0) pg MCHC 31.7 (31.0-37.0) g/dL RDW Std Deviation 52.6 (28.0-62.0) fl RDW Coeff of Frank 15 (11.0-15.0) % Plt Count 291 (150-400) K/uL MPV 10.40 (7.40-12.00) fL Neut % (Auto) 70.6 (48.0-80.0) % Lymph % (Auto) 18.3 (16.0-40.0) % [place] % (Auto) 9.3 (0.0-15.0) % Eos % (Auto) 1.6 (0.0-7.0) % Baso % (Auto) 0.2 (0.0-1.5) % Neut # (Auto) 7.3 H (1.4-5.7) K/uL Lymph # (Auto) 1.9 (0.6-2.4) K/uL [place] # (Auto) 1.0 H (0.0-0.8) K/uL Eos # (Auto) 0.2 (0.0-0.7) K/uL Baso # (Auto) 0.0 (0.0-0.1) K/uL Nucleated RBC % 0.0 /100WBC Nucleated RBCs # 0 K/uL INR 2.63 Sodium (136-145) mmol/L Potassium (3.5-5.1) mmol/L Chloride (98-107) mmol/L Carbon Dioxide (21.0-32.0) mmol/L BUN (7.0-18.0) mg/dL Creatinine (0.6-1.0) mg/dL Est Cr Clr Drug Dosing mL/min Estimated GFR (MDRD) ml/min Glucose (74-106) mg/dL Calcium (8.5-10.1) mg/dL Magnesium (1.8-2.4) mg/dL Total Bilirubin (0.2-1.0) mg/dL AST (15-37) IU/L ALT (14-63) IU/L Alkaline Phosphatase (46-116) U/L Troponin I < 0.050 (0.000-0.056) ng/mL B-Natriuretic Peptide (<100) PG/ML Total Protein (6.4-8.2) g/dL Albumin (3.4-5.0) g/dL Globulin (2.6-4.0) g/dL Albumin/Globulin Ratio (0.9-1.6) Urine Color Urine Appearance Urine pH (5.0-8.0) Ur Specific [place] (1.001-1.035) Urine Protein (NEGATIVE) mg/dL Urine Glucose (UA) (NEGATIVE) mg/dL Urine Ketones (NEGATIVE) mg/dL Urine Occult Blood (NEGATIVE) Urine Nitrite (NEGATIVE) Urine Bilirubin (NEGATIVE) Urine Urobilinogen (<2.0) EU/dL Ur Leukocyte Esterase (NEGATIVE) Urine RBC (0-2/HPF) Urine WBC (0-5/HPF) Ur Epithelial Cells (NONE-FEW) Urine Bacteria (NEGATIVE) Urine Mucus (NONE-MOD) 04/21/19 04/21/19 Range/Units 02:50 02:50 WBC (4.0-11.0) K/uL RBC (4.30-5.90) M/uL Hgb (12.0-16.0) g/dL Hct (36.0-46.0) % MCV (80.0-98.0) fL MCH (27.0-32.0) pg MCHC (31.0-37.0) g/dL RDW Std Deviation (28.0-62.0) fl RDW Coeff of Frank (11.0-15.0) % Plt Count (150-400) K/uL MPV (7.40-12.00) fL Neut % (Auto) (48.0-80.0) % Lymph % (Auto) (16.0-40.0) % [place] % (Auto) (0.0-15.0) % Eos % (Auto) (0.0-7.0) % Baso % (Auto) (0.0-1.5) % Neut # (Auto) (1.4-5.7) K/uL Lymph # (Auto) (0.6-2.4) K/uL [place] # (Auto) (0.0-0.8) K/uL Eos # (Auto) (0.0-0.7) K/uL Baso # (Auto) (0.0-0.1) K/uL Nucleated RBC % /100WBC Nucleated RBCs # K/uL INR Sodium 143 (136-145) mmol/L Potassium 5.3 H (3.5-5.1) mmol/L Chloride 109 H (98-107) mmol/L Carbon Dioxide 23.7 (21.0-32.0) mmol/L BUN 44 H (7.0-18.0) mg/dL Creatinine 1.6 H (0.6-1.0) mg/dL Est Cr Clr Drug Dosing 27.45 mL/min Estimated GFR (MDRD) 32.0 ml/min Glucose 102 (74-106) mg/dL Calcium 9.1 (8.5-10.1) mg/dL Magnesium (1.8-2.4) mg/dL Total Bilirubin 0.7 (0.2-1.0) mg/dL AST 28 (15-37) IU/L ALT 44 (14-63) IU/L Alkaline Phosphatase 190 H (46-116) U/L Troponin I < 0.050 (0.000-0.056) ng/mL B-Natriuretic Peptide (<100) PG/ML Total Protein 5.8 L (6.4-8.2) g/dL Albumin 2.4 L (3.4-5.0) g/dL Globulin 3.4 (2.6-4.0) g/dL Albumin/Globulin Ratio 0.7 L (0.9-1.6) Urine Color Urine Appearance Urine pH (5.0-8.0) Ur Specific [place] (1.001-1.035) Urine Protein (NEGATIVE) mg/dL Urine Glucose (UA) (NEGATIVE) mg/dL Urine Ketones (NEGATIVE) mg/dL Urine Occult Blood (NEGATIVE) Urine Nitrite (NEGATIVE) Urine Bilirubin (NEGATIVE) Urine Urobilinogen (<2.0) EU/dL Ur Leukocyte Esterase (NEGATIVE) Urine RBC (0-2/HPF) Urine WBC (0-5/HPF) Ur Epithelial Cells (NONE-FEW) Urine Bacteria (NEGATIVE) Urine Mucus (NONE-MOD) Med Orders - Current: Current Medications Albuterol (Ventolin Hfa) 0 gm INH Q4H PRN PRN Reason: Shortness of Breath Albuterol/Ipratropium (Duoneb 3.0-0.5 Mg/3 Ml) 3 ml NEB Q4H PRN PRN Reason: Shortness Of Breath/wheezing Bisacodyl (Dulcolax) 5 mg PO DAILY PRN PRN Reason: Constipation Diltiazem HCl (Diltiazem) 20 mg IVPUSH Q6H PRN PRN Reason: Tachycardia Last Admin: 04/21/19 09:22 Dose: 20 mg Hydroxyzine HCl (Atarax) 25 mg PO TID [facility] Last Admin: 04/21/19 05:14 Dose: 25 mg Linezolid 600 mg/ Premix 300 mls @ 300 mls/hr IV Q12H [facility] Lisinopril (Prinivil) 5 mg PO DAILY [facility] Last Admin: 04/21/19 08:39 Dose: 5 mg Metoprolol Tartrate (Lopressor) 25 mg PO DAILY [facility] Last Admin: 04/21/19 08:39 Dose: 25 mg Morphine Sulfate (Morphine) 2 mg IVPUSH Q2H PRN PRN Reason: Pain (severe 7-10) Stop: 04/21/19 18:03 Last Admin: 04/21/19 03:00 Dose: 2 mg Ondansetron HCl (Zofran Odt) 4 mg PO Q6H PRN PRN Reason: nausea, able to take PO Oxycodone HCl (Oxycodone) 5 mg PO Q4H PRN PRN Reason: Pain (moderate 4-6) Last Admin: 04/21/19 07:32 Dose: 5 mg Pantoprazole Sodium (Protonix) 40 mg PO BIDAC [facility] Last Admin: 04/21/19 06:37 Dose: 40 mg Ropinirole HCl (Requip) 1 mg PO BEDTIME [facility] Last Admin: 04/20/19 21:17 Dose: 1 mg Sertraline HCl (Zoloft) 50 mg PO DAILY [facility] Last Admin: 04/21/19 08:39 Dose: 50 mg Sodium Bicarbonate (Sodium Bicarbonate) 325 mg PO BID [facility] Last Admin: 04/21/19 08:40 Dose: 325 mg Temazepam (Restoril) 15 mg PO BEDTIME PRN PRN Reason: Sleep Warfarin Sodium (Coumadin) 2.5 mg PO TUTHSA@1400 FELICITY Warfarin Sodium (Coumadin) 5 mg PO SUMOWEFR@1400 [facility] Discontinued Medications Diltiazem HCl (Diltiazem) 20 mg IVPUSH ONETIME ONE Stop: 04/20/19 16:35 Last Admin: 04/20/19 16:47 Dose: 20 mg Vancomycin HCl 1 gm/ Sodium (Chloride) 250 mls @ 166 mls/hr IV ONETIME ONE Stop: 04/20/19 18:05 Last Admin: 04/20/19 16:47 Dose: 166 mls/hr - Exam Quality Assessment: Supplemental Oxygen General: Alert, Oriented, Cooperative, No Acute Distress HEENT: Pupils Equal, Pupils Reactive, EOMI, Mucous Membr. Moist/[place] Neck: Supple, Trachea Midline Lungs: Decreased Breath Sounds, Crackles Cardiovascular: Irregular Rhythm, Tachycardia GI/Abdominal Exam: Normal Bowel Sounds, No Distention, Other (Obese) Back Exam: Full Range of Motion (Age appropriate). No: Normal Inspection (Age appropriate) Extremities: Pedal Edema Skin: Other (Circumferential weeping dermatitis circumferentially both lower extremities). No: Intact Neurological: No New Focal Deficit Psy/Mental Status: Alert, Normal Affect, Normal Mood - Problem List & Annotations (1) Cellulitis SNOMED Code(s): 237496261 Code(s): L03.90 - CELLULITIS, UNSPECIFIED Status: Acute Priority: High Current Visit: Yes Qualifiers: Site of cellulitis: extremity Site of cellulitis of extremity: lower extremity Laterality: unspecified laterality Qualified Code(s): L03.119 - Cellulitis of unspecified part of limb (2) Chronic kidney disease (CKD), stage III (moderate) SNOMED Code(s): 712744596 Code(s): N18.3 - CHRONIC KIDNEY DISEASE, STAGE 3 (MODERATE) Status: Chronic Priority: High Current Visit: Yes (3) Atrial flutter by electrocardiogram SNOMED Code(s): 427972869 Code(s): I48.92 - UNSPECIFIED ATRIAL FLUTTER Status: Chronic Priority: High Current Visit: Yes (4) Chronic anticoagulation SNOMED Code(s): 213574429 Code(s): Z79.01 - INTERMEDIATE (CURRENT) USE OF ANTICOAGULANTS Status: Chronic Priority: Medium Current Visit: Yes - Problem List Review Problem List Initiated/Reviewed/Updated: Yes - My Orders Last 24 Hours: My Active Orders 04/20/19 17:00 Telemetry Monitoring [Cardiac Monitoring] [RC] . DIRECTED 04/20/19 17:57 Albuterol [Ventolin HFA] 0 gm INH Q4H PRN 04/20/19 18:01 Up With Assistance [RC] ASDIRECTED Albuterol/Ipratropium [DuoNeb 3.0-0.5 MG/3 ML] 3 ml NEB Q4H PRN Bisacodyl [Dulcolax] 5 mg PO DAILY PRN Morphine 2 mg IVPUSH Q2H PRN Ondansetron [Zofran ODT] 4 mg PO Q6H PRN Temazepam [Restoril] 15 mg PO BEDTIME PRN oxyCODONE 5 mg PO Q4H PRN VTE Mechanical Contraindications [AST] Per Unit Routine VTE Pharmacological Contraindications [AST] Per Unit Routine Resuscitation Status Routine 04/20/19 18:02 Cardiac Monitoring [RC] Q8H Oxygen Therapy [RC] PRN VTE/DVT Education [RC] PER UNIT ROUTINE Vital Signs [RC] Q4H 04/20/19 18:04 RT Aerosol Therapy [RC] ASDIRECTED 04/20/19 18:10 Diltiazem 20 mg IVPUSH Q6H PRN 04/20/19 18:23 Echo 2D wo Cont [US] Routine 04/20/19 18:39 Consult to Wound Care Services [CONS] Routine 04/20/19 21:00 Sodium Bicarbonate 325 mg PO BID rOPINIRole [Requip] 1 mg PO BEDTIME 04/20/19 22:00 hydrOXYzine HCl [Atarax] 25 mg PO TID 04/21/19 07:30 Pantoprazole [ProTONIX] 40 mg PO BIDAC 04/21/19 09:00 Linezolid [Zyvox] 600 mg Premix Bag 1 bag IV Q12H Lisinopril [Prinivil] 5 mg PO DAILY Metoprolol Tartrate [Lopressor] 25 mg PO DAILY Sertraline [Zoloft] 50 mg PO DAILY 04/21/19 14:00 Warfarin [Coumadin] 5 mg PO SUMOWEFR@1400 04/21/19 Breakfast Heart Healthy Diet [DIET] 04/22/19 05:11 INR,PT,PROTHROMBIN TIME [COAG] DAILY 04/23/19 14:00 Warfarin [Coumadin] 2.5 mg PO TUTHSA@1400 - Plan Plan:: The patient is a 68-year-old lady who was admitted secondary to atrial fibrillation/atrial flutter as well as bilateral lower extremity cellulitis. She does have chronic lymphedema and wound care has been ordered for this. The patient still has remained in RVR and I've ordered a single one-time dose of amiodarone. Wound care has also been ordered for her bilateral lower extremities. The patient is chronically anticoagulated and she'll be continued on her Xarelto. The patient's INR today is 2.63 and I've ordered repeat laboratory testings. The patient's previously noted troponins have been tested and all found to be essentially undetectable. The patient will be continued on her outpatient medications. She's been encouraged to ambulate. 2-D echocardiogram is currently pending. She'll be continued on her current diet as tolerated.
[2019-04-21] MEDS ORDERED: Amiodarone 150 MG in Dextrose 5% in Water 100 ML IV ONE ×2 (10:19)
[2019-04-21] MEDS: Linezolid 600 MG in Premix Bag 1 BAG IV SCH ×2 (12:28→22:31)
[2019-04-21] MEDS ORDERED: Warfarin 5 MG Tab PO SCH (14:00)
[2019-04-21] MEDS ORDERED: Warfarin 2.5 MG Tab PO ONE (14:00)
[2019-04-21] MEDS: rOPINIRole 1 MG Tab PO SCH (21:31)
[2019-04-22] MEDS: Diltiazem 25 MG/5 ML SDV IVPUSH PRN (01:03)
[2019-04-22] MEDS: hydrOXYzine HCl 25 MG Tab PO SCH ×2 (05:51→13:15)
[2019-04-22] MEDS: Pantoprazole 40 MG Tab.CR PO SCH (06:30)
--- NOTE | 2019-04-22 08:55 | PCM.PN ---
<Aries Daniels M - Last Filed: 04/22/19 09:33> - General Info Date of Service: 04/22/19 Subjective Update: 68-year-old female admitted for atrial fibrillation with RVR and bilateral lower extremity cellulitis. Currently on IV linezolid. Patient remains on telemetry and heart rate has been between 100 to <120. Reports no shortness of breath this morning. Has been tolerating oral diet well. - Patient Data Vitals - Most Recent: Last Vital Signs Temp 96.8 F 04/22/19 04:00 Pulse 103 H 04/22/19 04:00 Resp 16 04/22/19 04:00 BP 106/68 04/22/19 04:00 Pulse Ox 100 04/22/19 04:00 Weight - Most Recent: 116.074 kg I&O - Last 24 Hours: Intake & Output 04/21/19 04/22/19 04/22/19 22:59 06:59 14:59 Intake Total 1780 1090 Output Total 200 350 Balance 1580 740 Lab Results Last 24 Hours: Laboratory Results - last 24 hr 04/22/19 04/22/19 04/22/19 Range/Units 05:05 05:05 05:45 WBC 9.35 (4.0-11.0) K/uL RBC 3.66 L (4.30-5.90) M/uL Hgb 11.1 L (12.0-16.0) g/dL Hct 33.9 L (36.0-46.0) % MCV 92.6 (80.0-98.0) fL MCH 30.3 (27.0-32.0) pg MCHC 32.7 (31.0-37.0) g/dL RDW Std Deviation 51.6 (28.0-62.0) fl RDW Coeff of Frank 15 (11.0-15.0) % Plt Count 287 (150-400) K/uL MPV 10.70 (7.40-12.00) fL Neut % (Auto) 68.5 (48.0-80.0) % Lymph % (Auto) 17.8 (16.0-40.0) % Real % (Auto) 10.4 (0.0-15.0) % Eos % (Auto) 3.0 (0.0-7.0) % Baso % (Auto) 0.3 (0.0-1.5) % Neut # (Auto) 6.4 H (1.4-5.7) K/uL Lymph # (Auto) 1.7 (0.6-2.4) K/uL Real # (Auto) 1.0 H (0.0-0.8) K/uL Eos # (Auto) 0.3 (0.0-0.7) K/uL Baso # (Auto) 0.0 (0.0-0.1) K/uL Nucleated RBC % 0.0 /100WBC Nucleated RBCs # 0 K/uL INR 2.19 Sodium 138 (136-145) mmol/L Potassium 5.0 (3.5-5.1) mmol/L Chloride 105 (98-107) mmol/L Carbon Dioxide 19.8 L (21.0-32.0) mmol/L BUN 56 H (7.0-18.0) mg/dL Creatinine 2.3 H (0.6-1.0) mg/dL Est Cr Clr Drug Dosing 19.10 mL/min Estimated GFR (MDRD) 21.0 ml/min Glucose 103 (74-106) mg/dL Calcium 9.1 (8.5-10.1) mg/dL Edgardo Results Last 24 Hours: Microbiology 04/20/19 18:45 Urine Culture - Final Urine, Clean Catch Escherichia Coli Normal Urogenital Marilu 04/20/19 16:54 Aerobic Blood Culture - Preliminary Blood - Venous - Lab Draw NO GROWTH AFTER 1 DAY Anaerobic Blood Culture - Preliminary NO GROWTH AFTER 1 DAY 04/20/19 16:43 Aerobic Blood Culture - Preliminary Blood - Venous NO GROWTH AFTER 1 DAY Anaerobic Blood Culture - Preliminary NO GROWTH AFTER 1 DAY Med Orders - Current: Current Medications Albuterol (Ventolin Hfa) 0 gm INH Q4H PRN PRN Reason: Shortness of Breath Albuterol/Ipratropium (Duoneb 3.0-0.5 Mg/3 Ml) 3 ml NEB Q4H PRN PRN Reason: Shortness Of Breath/wheezing Bisacodyl (Dulcolax) 5 mg PO DAILY PRN PRN Reason: Constipation Diltiazem HCl (Diltiazem) 20 mg IVPUSH Q6H PRN PRN Reason: Tachycardia Last Admin: 04/22/19 01:03 Dose: 20 mg Hydroxyzine HCl (Atarax) 25 mg PO TID [facility] Last Admin: 04/22/19 05:51 Dose: 25 mg Linezolid 600 mg/ Premix 300 mls @ 300 mls/hr IV Q12H [facility] Last Admin: 04/21/19 22:31 Dose: 300 mls/hr Lisinopril (Prinivil) 5 mg PO DAILY [facility] Last Admin: 04/21/19 08:39 Dose: 5 mg Metoprolol Tartrate (Lopressor) 25 mg PO DAILY [facility] Last Admin: 04/21/19 08:39 Dose: 25 mg Ondansetron HCl (Zofran Odt) 4 mg PO Q6H PRN PRN Reason: nausea, able to take PO Oxycodone HCl (Oxycodone) 5 mg PO Q4H PRN PRN Reason: Pain (moderate 4-6) Last Admin: 04/21/19 21:37 Dose: 5 mg Pantoprazole Sodium (Protonix) 40 mg PO BIDAC [facility] Last Admin: 04/22/19 06:30 Dose: 40 mg Ropinirole HCl (Requip) 1 mg PO BEDTIME [facility] Last Admin: 04/21/19 21:31 Dose: 1 mg Sodium Bicarbonate (Sodium Bicarbonate) 325 mg PO BID [facility] Last Admin: 04/21/19 21:31 Dose: 325 mg Temazepam (Restoril) 15 mg PO BEDTIME PRN PRN Reason: Sleep Warfarin Sodium (Coumadin Ask) 1 each PO DAILY@1400 [facility] Last Admin: 04/21/19 14:23 Dose: Not Given Warfarin Sodium (Coumadin) 5 mg PO DAILY@1400 ONE Stop: 04/22/19 14:01 Discontinued Medications Diltiazem HCl (Diltiazem) 20 mg IVPUSH ONETIME ONE Stop: 04/20/19 16:35 Last Admin: 04/20/19 16:47 Dose: 20 mg Vancomycin HCl 1 gm/ Sodium (Chloride) 250 mls @ 166 mls/hr IV ONETIME ONE Stop: 04/20/19 18:05 Last Admin: 04/20/19 16:47 Dose: 166 mls/hr Amiodarone HCl 150 mg/ (Dextrose/Water) 103 mls @ 600 mls/hr IV .BOLUS ONE Stop: 04/21/19 10:29 Last Admin: 04/21/19 11:24 Dose: 600 mls/hr Morphine Sulfate (Morphine) 2 mg IVPUSH Q2H PRN PRN Reason: Pain (severe 7-10) Stop: 04/21/19 18:03 Last Admin: 04/21/19 03:00 Dose: 2 mg Sertraline HCl (Zoloft) 50 mg PO DAILY [facility] Last Admin: 04/21/19 08:39 Dose: 50 mg Warfarin Sodium (Coumadin) 2.5 mg PO DAILY@1400 ONE Stop: 04/21/19 14:01 Last Admin: 04/21/19 14:22 Dose: 2.5 mg - Exam General: Alert, Oriented, Cooperative, No Acute Distress Lungs: Clear to Auscultation, Normal Respiratory Effort Cardiovascular: Tachycardia GI/Abdominal Exam: Normal Bowel Sounds, Soft, Non-Tender, No Distention Extremities: Other (4+ pitting edema bilaterally, weeping dermatitis, non- tender to palpation, area erythema extending from mid-leg to feet bilaterally.) - Problem List Review Problem List Initiated/Reviewed/Updated: Yes - My Orders Last 24 Hours: My Active Orders 04/22/19 08:08 Intake and Output Strict [RC] ASDIRECTED 04/22/19 08:09 Daily Weight [Height and Weight] [RC] DAILY - Plan Plan:: Assessment: 1. Atrial fibrillation with RVR. 2. Bilateral lower extremity cellulitis superimposed on chronic lymphedema. 3. Urinary tract infection. 4. Chronic kidney disease stage 3. 5. PMH of HTN and CVA. Plan: 1. For atrial fibrillation, patient remains on telemetry and her HR has been between 100 to one-teens. Patient reports that her dyspnea has resolved. She is currently on metoprolol 25 mg daily and Cardizem IV 20 mg q6h PRN HR > 100. She is currently anti-coagulated with warfarin. ECHO pending. Will increase dose of metoprolol to 25mg BID today for better rate control. 2. For bilateral lower extremity cellulitis, patient is on IV linezolid 600 mg q12h. Patient reports pain and erythema has been improving. Wound care consulted. 3. For urinary tract infection, urine culture positive for E. Coli. Will add IV ceftriaxone today. 4. For chronic kidney disease, will continue to monitor. Will encourage oral hydration. 5. For PMH will continue with home medications. <Andrews Reynoso - Last Filed: 04/22/19 13:43> - General Info Admission Dx/Problem (Free Text): I have seen and evaluated the patient independent of medical technician, Dr. Jeremiah MD. I have reviewed and agree with the plan and care as outlined for this patient by him. I have discussed the case with him. Please see orders. - Patient Data Vitals - Most Recent: Last Vital Signs Temp 35.7 C 04/22/19 12:00 Pulse 116 H 04/22/19 12:00 Resp 18 04/22/19 12:00 BP 120/75 04/22/19 12:00 Pulse Ox 96 04/22/19 12:00 I&O - Last 24 Hours: Intake & Output 04/21/19 04/22/19 04/22/19 22:59 06:59 14:59 Intake Total 1780 1090 50 Output Total 200 350 Balance 1580 740 50 Lab Results Last 24 Hours: Laboratory Results - last 24 hr 04/22/19 04/22/19 04/22/19 Range/Units 05:05 05:05 05:45 WBC 9.35 (4.0-11.0) K/uL RBC 3.66 L (4.30-5.90) M/uL Hgb 11.1 L (12.0-16.0) g/dL Hct 33.9 L (36.0-46.0) % MCV 92.6 (80.0-98.0) fL MCH 30.3 (27.0-32.0) pg MCHC 32.7 (31.0-37.0) g/dL RDW Std Deviation 51.6 (28.0-62.0) fl RDW Coeff of Frank 15 (11.0-15.0) % Plt Count 287 (150-400) K/uL MPV 10.70 (7.40-12.00) fL Neut % (Auto) 68.5 (48.0-80.0) % Lymph % (Auto) 17.8 (16.0-40.0) % Real % (Auto) 10.4 (0.0-15.0) % Eos % (Auto) 3.0 (0.0-7.0) % Baso % (Auto) 0.3 (0.0-1.5) % Neut # (Auto) 6.4 H (1.4-5.7) K/uL Lymph # (Auto) 1.7 (0.6-2.4) K/uL Real # (Auto) 1.0 H (0.0-0.8) K/uL Eos # (Auto) 0.3 (0.0-0.7) K/uL Baso # (Auto) 0.0 (0.0-0.1) K/uL Nucleated RBC % 0.0 /100WBC Nucleated RBCs # 0 K/uL INR 2.19 Sodium 138 (136-145) mmol/L Potassium 5.0 (3.5-5.1) mmol/L Chloride 105 (98-107) mmol/L Carbon Dioxide 19.8 L (21.0-32.0) mmol/L BUN 56 H (7.0-18.0) mg/dL Creatinine 2.3 H (0.6-1.0) mg/dL Est Cr Clr Drug Dosing 19.10 mL/min Estimated GFR (MDRD) 21.0 ml/min Glucose 103 (74-106) mg/dL Calcium 9.1 (8.5-10.1) mg/dL Ur Specific [place] (1.001-1.035) 04/22/19 Range/Units 09:42 WBC (4.0-11.0) K/uL RBC (4.30-5.90) M/uL Hgb (12.0-16.0) g/dL Hct (36.0-46.0) % MCV (80.0-98.0) fL MCH (27.0-32.0) pg MCHC (31.0-37.0) g/dL RDW Std Deviation (28.0-62.0) fl RDW Coeff of Frank (11.0-15.0) % Plt Count (150-400) K/uL MPV (7.40-12.00) fL Neut % (Auto) (48.0-80.0) % Lymph % (Auto) (16.0-40.0) % Real % (Auto) (0.0-15.0) % Eos % (Auto) (0.0-7.0) % Baso % (Auto) (0.0-1.5) % Neut # (Auto) (1.4-5.7) K/uL Lymph # (Auto) (0.6-2.4) K/uL Real # (Auto) (0.0-0.8) K/uL Eos # (Auto) (0.0-0.7) K/uL Baso # (Auto) (0.0-0.1) K/uL Nucleated RBC % /100WBC Nucleated RBCs # K/uL INR Sodium (136-145) mmol/L Potassium (3.5-5.1) mmol/L Chloride (98-107) mmol/L Carbon Dioxide (21.0-32.0) mmol/L BUN (7.0-18.0) mg/dL Creatinine (0.6-1.0) mg/dL Est Cr Clr Drug Dosing mL/min Estimated GFR (MDRD) ml/min Glucose (74-106) mg/dL Calcium (8.5-10.1) mg/dL Ur Specific [place] 1.025 (1.001-1.035) Edgardo Results Last 24 Hours: Microbiology 04/20/19 18:45 Urine Culture - Final Urine, Clean Catch Escherichia Coli Normal Urogenital Marilu 04/20/19 16:54 Aerobic Blood Culture - Preliminary Blood - Venous - Lab Draw NO GROWTH AFTER 1 DAY Anaerobic Blood Culture - Preliminary NO GROWTH AFTER 1 DAY 04/20/19 16:43 Aerobic Blood Culture - Preliminary Blood - Venous NO GROWTH AFTER 1 DAY Anaerobic Blood Culture - Preliminary NO GROWTH AFTER 1 DAY Med Orders - Current: Current Medications Albuterol (Ventolin Hfa) 0 gm INH Q4H PRN PRN Reason: Shortness of Breath Albuterol/Ipratropium (Duoneb 3.0-0.5 Mg/3 Ml) 3 ml NEB Q4H PRN PRN Reason: Shortness Of Breath/wheezing Bisacodyl (Dulcolax) 5 mg PO DAILY PRN PRN Reason: Constipation Diltiazem HCl (Cardizem Cd) 120 mg PO DAILY [facility] Last Admin: 04/22/19 11:34 Dose: 120 mg Hydroxyzine HCl (Atarax) 25 mg PO TID [facility] Last Admin: 04/22/19 13:15 Dose: 25 mg Linezolid 600 mg/ Premix 300 mls @ 300 mls/hr IV Q12H [facility] Last Admin: 04/22/19 10:58 Dose: 300 mls/hr Ceftriaxone Sodium/Dextrose 1 (gm/ Premix) 50 mls @ 100 mls/hr IV Q24H [facility] Last Admin: 04/22/19 10:18 Dose: 100 mls/hr Lisinopril (Prinivil) 5 mg PO DAILY [facility] Last Admin: 04/22/19 09:05 Dose: 5 mg Metoprolol Tartrate (Lopressor) 25 mg PO BID [facility] Ondansetron HCl (Zofran Odt) 4 mg PO Q6H PRN PRN Reason: nausea, able to take PO Oxycodone HCl (Oxycodone) 5 mg PO Q4H PRN PRN Reason: Pain (moderate 4-6) Last Admin: 04/21/19 21:37 Dose: 5 [facility] Admin: 04/22/19 06:30 Dose: 40 mg Ropinirole HCl (Requip) 1 mg PO BEDTIME [facility] Last Admin: 04/21/19 21:31 Dose: 1 mg Sodium Bicarbonate (Sodium Bicarbonate) 325 mg PO BID [facility] Last Admin: 04/22/19 09:06 Dose: 325 mg Temazepam (Restoril) 15 mg PO BEDTIME PRN PRN Reason: Sleep Warfarin Sodium (Coumadin Ask) 1 each PO DAILY@1400 [facility] Last Admin: 04/22/19 13:05 Dose: Not Given Warfarin Sodium (Coumadin) 5 mg PO DAILY@1400 ONE Stop: 04/22/19 14:01 Last Admin: 04/22/19 13:15 Dose: 5 mg Discontinued Medications Diltiazem HCl (Diltiazem) 20 mg IVPUSH ONETIME ONE Stop: 04/20/19 16:35 Last Admin: 04/20/19 16:47 Dose: 20 mg Diltiazem HCl (Diltiazem) 20 mg IVPUSH Q6H PRN PRN Reason: Tachycardia Last Admin: 04/22/19 01:03 Dose: 20 mg Vancomycin HCl 1 gm/ Sodium (Chloride) 250 mls @ 166 mls/hr IV ONETIME ONE Stop: 04/20/19 18:05 Last Admin: 04/20/19 16:47 Dose: 166 mls/hr Amiodarone HCl 150 mg/ (Dextrose/Water) 103 mls @ 600 mls/hr IV .BOLUS ONE Stop: 04/21/19 10:29 Last Admin: 04/21/19 11:24 Dose: 600 mls/hr Metoprolol Tartrate (Lopressor) 25 mg PO DAILY [facility] Last Admin: 04/22/19 09:05 Dose: 25 mg Morphine Sulfate (Morphine) 2 mg IVPUSH Q2H PRN PRN Reason: Pain (severe 7-10) Stop: 04/21/19 18:03 Last Admin: 04/21/19 03:00 Dose: 2 mg Sertraline HCl (Zoloft) 50 mg PO DAILY [facility] Last Admin: 04/21/19 08:39 Dose: 50 mg Warfarin Sodium (Coumadin) 2.5 mg PO DAILY@1400 ONE Stop: 04/21/19 14:01 Last Admin: 04/21/19 14:22 Dose: 2.5 mg - Problem List & Annotations (1) Cellulitis SNOMED Code(s): 294649057 Code(s): L03.90 - CELLULITIS, UNSPECIFIED Status: Acute Priority: High Current Visit: Yes Qualifiers: Site of cellulitis: extremity Site of cellulitis of extremity: lower extremity Laterality: unspecified laterality Qualified Code(s): L03.119 - Cellulitis of unspecified part of limb (2) Chronic kidney disease (CKD), stage III (moderate) SNOMED Code(s): 159759406 Code(s): N18.3 - CHRONIC KIDNEY DISEASE, STAGE 3 (MODERATE) Status: Chronic Priority: High Current Visit: Yes (3) Atrial flutter by electrocardiogram SNOMED Code(s): 613640531 Code(s): I48.92 - UNSPECIFIED ATRIAL FLUTTER Status: Chronic Priority: High Current Visit: Yes (4) Chronic anticoagulation SNOMED Code(s): 495228376 Code(s): Z79.01 - DIRECTOR MEETINGS (CURRENT) USE OF ANTICOAGULANTS Status: Chronic Priority: Medium Current Visit: Yes - My Orders Last 24 Hours: My Active Orders 04/21/19 14:00 Warfarin Dosing [Coumadin Ask] 1 each PO DAILY@1400 04/22/19 14:00 Warfarin [Coumadin] 5 mg PO DAILY@1400 [facility] 04/22/19 18:23 Echo Comp wo Cont [US] Routine
[2019-04-22] MEDS: Metoprolol Tartrate 25 MG Tab PO SCH (09:05)
[2019-04-22] MEDS: Lisinopril 5 MG Tab PO SCH (09:05)
[2019-04-22] MEDS: Sodium Bicarbonate 650 MG Tab PO SCH (09:06)
[2019-04-22] MEDS ORDERED: cefTRIAXone 1 GM in Premix Bag 1 BAG IV SCH (09:30)
[2019-04-22] MEDS: Linezolid 600 MG in Premix Bag 1 BAG IV SCH (10:58)
[2019-04-22] MEDS ORDERED: Diltiazem 120 MG Cap.CD PO SCH (11:00)
[2019-04-22 13:25] VITALS: BP 120/75
--- NOTE | 2019-04-22 13:58 | PCM.DCSUM1 ---
<Aries Daniels - Last Filed: 04/22/19 14:07> Discharge Summary - Hospital Course Free Text/Narrative:: 68-year-old female admitted for atrial fibrillation/flutter with RVR, bilateral lower extremity cellulitis, UTI and acute kidney injury. Patient has a PMH of chronic lymphedema, CKD, CVA, diastolic heart failure and HTN. On admission, patient's heart rate was 130's. She was treated with IV cardizem 20 mg push and her heart rate has improved slightly but is still going between 80-120. She is currently on metoprolol 25 mg BID and Cardizem 120 mg daily PO. She is anti- coagulated with warfarin and has a therapeutic INR. ECHO is currently pending. Furthermore, patient was started on IV linezolid for her cellulitis. On admission her WBC count was approximately 15, 000 and has since normalized. Patient's extremities remain erythematous and have chronic weeping lymphedema. She does report an improvement in leg pain. Patient's urine culture was positive for E. Coli and has been started on IV ceftriaxone. Furthermore, patient's creatinine increased to 2.3 from 1.6 over the past 24 hours. Considering patient's history of chronic kidney disease and patient's current illnesses, patient and are concerned and requested a transfer to [facility], as they have seen physicians there in the past and would be more comfortable with continuing treatment there. Hospitalist Dr. Irvin from [facility] agreed to accept patient. Patient transferred in stable condition via ground ambulance. - Discharge Data Discharge Date: 04/22/19 Discharge Disposition: DC/Tfer to Acute Hospital 02 Condition: Fair - Patient Summary/Data Consults: Consultations 04/20/19 18:39 Consult to Wound Care Services [CONS] Routine - Patient Instructions Diet: Heart Healthy Diet, Fluid Restriction Fluid Restriction: 2000 mL Activity: As Tolerated Notify Provider of: Fever, Increased Pain, Swelling and Redness, Drainage, Nausea and/or Vomiting - Discharge Plan *PRESCRIPTION DRUG MONITORING PROGRAM REVIEWED*: Not Applicable *COPY OF PRESCRIPTION DRUG MONITORING REPORT IN PATIENT YUMI: Not Applicable Home Medications: Home Meds Pantoprazole Sodium 40 mg PO DAILY 03/11/16 [History] Metoprolol Tartrate 25 mg PO BID 06/24/17 [History] Warfarin [Coumadin] 2.5 mg PO TUTHSA@1800 06/24/17 [History] atorvaSTATin [Lipitor] 40 mg PO BEDTIME 06/24/17 [History] Albuterol [Ventolin HFA] 1 - 2 puff INH Q4HRRT PRN 03/15/18 [History] Fluticasone Propionate [Flonase Allergy Relief] 1 spray NASBOTH ASDIRECTED PRN 03/15/18 [History] Sertraline HCl 50 mg PO DAILY 03/15/18 [History] Sodium Bicarbonate 1 tab PO BID 03/15/18 [History] Lisinopril 5 mg PO DAILY 08/20/18 [History] Warfarin [Coumadin] 5 mg PO SuMoWeFr@1400 08/20/18 [History] hydrOXYzine HCl [hydrOXYzine] 25 mg PO TID 08/20/18 [History] rOPINIRole [Requip] 1 mg PO BEDTIME 08/20/18 [History] Furosemide [Lasix] 1 tab PO DAILY 04/20/19 [History] Levothyroxine Sodium [Levo-T] 1 tab PO DAILY 04/20/19 [History] Magnesium Oxide [Magnesium] 1 tab PO DAILY 04/20/19 [History] Diltiazem [Cardizem CD] 120 mg PO DAILY cap.cd 04/22/19 [Rx] Oxygen Therapy Mode: Room Air Patient Handouts: Cellulitis, Adult, [id number] Referrals: Aries Daniels MD [Resident] - 05/03/19 1:00 pm - Discharge Summary/Plan Comment DC Time >30 min.: No - Patient Data Vitals - Most Recent: Last Vital Signs Temp 96.2 F 04/22/19 12:00 Pulse 116 H 04/22/19 12:00 Resp 18 04/22/19 12:00 BP 120/75 04/22/19 12:00 Pulse Ox 96 04/22/19 12:00 Weight - Most Recent: 116.074 kg I&O - Last 24 hours: Intake & Output 04/21/19 04/22/19 04/22/19 22:59 06:59 14:59 Intake Total 1780 1090 50 Output Total 200 350 Balance 1580 740 50 Lab Results - Last 24 hrs: Laboratory Results - last 24 hr 04/22/19 04/22/19 04/22/19 Range/Units 05:05 05:05 05:45 WBC 9.35 (4.0-11.0) K/uL RBC 3.66 L (4.30-5.90) M/uL Hgb 11.1 L (12.0-16.0) g/dL Hct 33.9 L (36.0-46.0) % MCV 92.6 (80.0-98.0) fL MCH 30.3 (27.0-32.0) pg MCHC 32.7 (31.0-37.0) g/dL RDW Std Deviation 51.6 (28.0-62.0) fl RDW Coeff of Frank 15 (11.0-15.0) % Plt Count 287 (150-400) K/uL MPV 10.70 (7.40-12.00) fL Neut % (Auto) 68.5 (48.0-80.0) % Lymph % (Auto) 17.8 (16.0-40.0) % [place] % (Auto) 10.4 (0.0-15.0) % Eos % (Auto) 3.0 (0.0-7.0) % Baso % (Auto) 0.3 (0.0-1.5) % Neut # (Auto) 6.4 H (1.4-5.7) K/uL Lymph # (Auto) 1.7 (0.6-2.4) K/uL [place] # (Auto) 1.0 H (0.0-0.8) K/uL Eos # (Auto) 0.3 (0.0-0.7) K/uL Baso # (Auto) 0.0 (0.0-0.1) K/uL Nucleated RBC % 0.0 /100WBC Nucleated RBCs # 0 K/uL INR 2.19 Sodium 138 (136-145) mmol/L Potassium 5.0 (3.5-5.1) mmol/L Chloride 105 (98-107) mmol/L Carbon Dioxide 19.8 L (21.0-32.0) mmol/L BUN 56 H (7.0-18.0) mg/dL Creatinine 2.3 H (0.6-1.0) mg/dL Est Cr Clr Drug Dosing 19.10 mL/min Estimated GFR (MDRD) 21.0 ml/min Glucose 103 (74-106) mg/dL Calcium 9.1 (8.5-10.1) mg/dL Ur Specific [place] (1.001-1.035) 04/22/19 Range/Units 09:42 WBC (4.0-11.0) K/uL RBC (4.30-5.90) M/uL Hgb (12.0-16.0) g/dL Hct (36.0-46.0) % MCV (80.0-98.0) fL MCH (27.0-32.0) pg MCHC (31.0-37.0) g/dL RDW Std Deviation (28.0-62.0) fl RDW Coeff of Frank (11.0-15.0) % Plt Count (150-400) K/uL MPV (7.40-12.00) fL Neut % (Auto) (48.0-80.0) % Lymph % (Auto) (16.0-40.0) % [place] % (Auto) (0.0-15.0) % Eos % (Auto) (0.0-7.0) % Baso % (Auto) (0.0-1.5) % Neut # (Auto) (1.4-5.7) K/uL Lymph # (Auto) (0.6-2.4) K/uL [place] # (Auto) (0.0-0.8) K/uL Eos # (Auto) (0.0-0.7) K/uL Baso # (Auto) (0.0-0.1) K/uL Nucleated RBC % /100WBC Nucleated RBCs # K/uL INR Sodium (136-145) mmol/L Potassium (3.5-5.1) mmol/L Chloride (98-107) mmol/L Carbon Dioxide (21.0-32.0) mmol/L BUN (7.0-18.0) mg/dL Creatinine (0.6-1.0) mg/dL Est Cr Clr Drug Dosing mL/min Estimated GFR (MDRD) ml/min Glucose (74-106) mg/dL Calcium (8.5-10.1) mg/dL Ur Specific [place] 1.025 (1.001-1.035) YANCY Results - Last 24 hrs: Microbiology 04/20/19 18:45 Urine Culture - Final Urine, Clean Catch Escherichia Coli Normal Urogenital Marilu 04/20/19 16:54 Aerobic Blood Culture - Preliminary Blood - Venous - Lab Draw NO GROWTH AFTER 1 DAY Anaerobic Blood Culture - Preliminary NO GROWTH AFTER 1 DAY 04/20/19 16:43 Aerobic Blood Culture - Preliminary Blood - Venous NO GROWTH AFTER 1 DAY Anaerobic Blood Culture - Preliminary NO GROWTH AFTER 1 DAY Med Orders - Current: Current Medications Albuterol (Ventolin Hfa) 0 gm INH Q4H PRN PRN Reason: Shortness of Breath Albuterol/Ipratropium (Duoneb 3.0-0.5 Mg/3 Ml) 3 ml NEB Q4H PRN PRN Reason: Shortness Of Breath/wheezing Bisacodyl (Dulcolax) 5 mg PO DAILY PRN PRN Reason: Constipation Diltiazem HCl (Cardizem Cd) 120 mg PO DAILY [facility] Last Admin: 04/22/19 11:34 Dose: 120 mg Hydroxyzine HCl (Atarax) 25 mg PO TID [facility] Last Admin: 04/22/19 13:15 Dose: 25 mg Linezolid 600 mg/ Premix 300 mls @ 300 mls/hr IV Q12H [facility] Last Admin: 04/22/19 10:58 Dose: 300 mls/hr Ceftriaxone Sodium/Dextrose 1 (gm/ Premix) 50 mls @ 100 mls/hr IV Q24H [facility] Last Admin: 04/22/19 10:18 Dose: 100 mls/hr Lisinopril (Prinivil) 5 mg PO DAILY [facility] Last Admin: 04/22/19 09:05 Dose: 5 mg Metoprolol Tartrate (Lopressor) 25 mg PO BID [facility] Ondansetron HCl (Zofran Odt) 4 mg PO Q6H PRN PRN Reason: nausea, able to take PO Oxycodone HCl (Oxycodone) 5 mg PO Q4H PRN PRN Reason: Pain (moderate 4-6) Last Admin: 04/21/19 21:37 Dose: 5 mg [facility] Last Admin: 04/22/19 06:30 Dose: 40 mg Ropinirole HCl (Requip) 1 mg PO BEDTIME [facility] Last Admin: 04/21/19 21:31 Dose: 1 mg Sodium Bicarbonate (Sodium Bicarbonate) 325 mg PO BID [facility] Last Admin: 04/22/19 09:06 Dose: 325 mg Temazepam (Restoril) 15 mg PO BEDTIME PRN PRN Reason: Sleep Warfarin Sodium (Coumadin Ask) 1 each PO DAILY@1400 [facility] Last Admin: 04/22/19 13:05 Dose: Not Given Warfarin Sodium (Coumadin) 5 mg PO DAILY@1400 ONE Stop: 04/22/19 14:01 Last Admin: 04/22/19 13:15 Dose: 5 mg Discontinued Medications Diltiazem HCl (Diltiazem) 20 mg IVPUSH ONETIME ONE Stop: 04/20/19 16:35 Last Admin: 04/20/19 16:47 Dose: 20 mg Diltiazem HCl (Diltiazem) 20 mg IVPUSH Q6H PRN PRN Reason: Tachycardia Last Admin: 04/22/19 01:03 Dose: 20 mg Vancomycin HCl 1 gm/ Sodium (Chloride) 250 mls @ 166 mls/hr IV ONETIME ONE Stop: 04/20/19 18:05 Last Admin: 04/20/19 16:47 Dose: 166 mls/hr Amiodarone HCl 150 mg/ (Dextrose/Water) 103 mls @ 600 mls/hr IV .BOLUS ONE Stop: 04/21/19 10:29 Last Admin: 04/21/19 11:24 Dose: 600 mls/hr Metoprolol Tartrate (Lopressor) 25 mg PO DAILY [facility] Last Admin: 04/22/19 09:05 Dose: 25 mg Morphine Sulfate (Morphine) 2 mg IVPUSH Q2H PRN PRN Reason: Pain (severe 7-10) Stop: 04/21/19 18:03 Last Admin: 04/21/19 03:00 Dose: 2 mg Sertraline HCl (Zoloft) 50 mg PO DAILY [facility] Last Admin: 04/21/19 08:39 Dose: 50 mg Warfarin Sodium (Coumadin) 2.5 mg PO DAILY@1400 ONE Stop: 04/21/19 14:01 Last Admin: 04/21/19 14:22 Dose: 2.5 mg *Q Meaningful Use (DIS) - VTE *Q VTE Mechanical Contraindications *Q: Bilateral Lower Dermatits VTE Pharmacological Contraindications *Q: High INR Value <Andrews Reynoso Last Filed: 04/22/19 17:20> Discharge Summary - Hospital Course HPI Initial Comments: I have seen and evaluated the patient independent of medical detail representative, Dr. Jeremiah MD. I have reviewed and agree with the plan and care as outlined for this patient by him. I have discussed the case with him. Please see orders. The patient has physician in [place] who has been caring for lower extremity lymphedema. - Discharge Diagnosis/Problem(s) (1) Cellulitis SNOMED Code(s): 307526793 ICD Code: L03.90 - CELLULITIS, UNSPECIFIED Status: Acute Priority: High Qualifiers: Site of cellulitis: extremity Site of cellulitis of extremity: lower extremity Laterality: unspecified laterality Qualified Code(s): L03.119 - Cellulitis of unspecified part of limb (2) Chronic kidney disease (CKD), stage III (moderate) SNOMED Code(s): 349937575 ICD Code: N18.3 - CHRONIC KIDNEY DISEASE, STAGE 3 (MODERATE) Status: Chronic Priority: High (3) Atrial flutter by electrocardiogram SNOMED Code(s): 089327141 ICD Code: I48.92 - UNSPECIFIED ATRIAL FLUTTER Status: Chronic Priority: High (4) Chronic anticoagulation SNOMED Code(s): 906993954 ICD Code: Z79.01 - DETENTION (CURRENT) USE OF ANTICOAGULANTS Status: Chronic Priority: Medium - Patient Summary/Data Consults: Consultations 04/20/19 18:39 Consult to Wound Care Services [CONS] Routine - Patient Data Vitals - Most Recent: Last Vital Signs Temp 35.7 C 04/22/19 12:00 Pulse 116 H 04/22/19 12:00 Resp 18 04/22/19 12:00 BP 120/75 04/22/19 12:00 Pulse Ox 96 04/22/19 12:00 I&O - Last 24 hours: Intake & Output 04/22/19 04/22/19 04/22/19 06:59 14:59 22:59 Intake Total 1090 350 500 Output Total 350 400 Balance 740 350 100 Lab Results - Last 24 hrs: Laboratory Results - last 24 hr 04/22/19 04/22/19 04/22/19 Range/Units 05:05 05:05 05:45 WBC 9.35 (4.0-11.0) K/uL RBC 3.66 L (4.30-5.90) M/uL Hgb 11.1 L (12.0-16.0) g/dL Hct 33.9 L (36.0-46.0) % MCV 92.6 (80.0-98.0) fL MCH 30.3 (27.0-32.0) pg MCHC 32.7 (31.0-37.0) g/dL RDW Std Deviation 51.6 (28.0-62.0) fl RDW Coeff of Frank 15 (11.0-15.0) % Plt Count 287 (150-400) K/uL MPV 10.70 (7.40-12.00) fL Neut % (Auto) 68.5 (48.0-80.0) % Lymph % (Auto) 17.8 (16.0-40.0) % [place] % (Auto) 10.4 (0.0-15.0) % Eos % (Auto) 3.0 (0.0-7.0) % Baso % (Auto) 0.3 (0.0-1.5) % Neut # (Auto) 6.4 H (1.4-5.7) K/uL Lymph # (Auto) 1.7 (0.6-2.4) K/uL [place] # (Auto) 1.0 H (0.0-0.8) K/uL Eos # (Auto) 0.3 (0.0-0.7) K/uL Baso # (Auto) 0.0 (0.0-0.1) K/uL Nucleated RBC % 0.0 /100WBC Nucleated RBCs # 0 K/uL INR 2.19 Sodium 138 (136-145) mmol/L Potassium 5.0 (3.5-5.1) mmol/L Chloride 105 (98-107) mmol/L Carbon Dioxide 19.8 L (21.0-32.0) mmol/L BUN 56 H (7.0-18.0) mg/dL Creatinine 2.3 H (0.6-1.0) mg/dL Est Cr Clr Drug Dosing 19.10 mL/min Estimated GFR (MDRD) 21.0 ml/min Glucose 103 (74-106) mg/dL Calcium 9.1 (8.5-10.1) mg/dL Ur Specific [place] (1.001-1.035) 04/22/19 04/22/19 Range/Units 09:42 13:18 WBC (4.0-11.0) K/uL RBC (4.30-5.90) M/uL Hgb (12.0-16.0) g/dL Hct (36.0-46.0) % MCV (80.0-98.0) fL MCH (27.0-32.0) pg MCHC (31.0-37.0) g/dL RDW Std Deviation (28.0-62.0) fl RDW Coeff of Frank (11.0-15.0) % Plt Count (150-400) K/uL MPV (7.40-12.00) fL Neut % (Auto) (48.0-80.0) % Lymph % (Auto) (16.0-40.0) % [place] % (Auto) (0.0-15.0) % Eos % (Auto) (0.0-7.0) % Baso % (Auto) (0.0-1.5) % Neut # (Auto) (1.4-5.7) K/uL Lymph # (Auto) (0.6-2.4) K/uL [place] # (Auto) (0.0-0.8) K/uL Eos # (Auto) (0.0-0.7) K/uL Baso # (Auto) (0.0-0.1) K/uL Nucleated RBC % /100WBC Nucleated RBCs # K/uL INR Sodium 136 (136-145) mmol/L Potassium 5.2 H (3.5-5.1) mmol/L Chloride 103 (98-107) mmol/L Carbon Dioxide 20.5 L (21.0-32.0) mmol/L BUN 61 H (7.0-18.0) mg/dL Creatinine 2.4 H (0.6-1.0) mg/dL Est Cr Clr Drug Dosing 18.29 mL/min Estimated GFR (MDRD) 20.0 ml/min Glucose 87 (74-106) mg/dL Calcium 9.0 (8.5-10.1) mg/dL Ur Specific [place] 1.025 (1.001-1.035) YANCY Results - Last 24 hrs: Microbiology 04/20/19 16:54 Aerobic Blood Culture - Preliminary Blood - Venous - Lab Draw NO GROWTH AFTER 2 DAYS Anaerobic Blood Culture - Preliminary NO GROWTH AFTER 2 DAYS 04/20/19 16:43 Aerobic Blood Culture - Preliminary Blood - Venous NO GROWTH AFTER 2 DAYS Anaerobic Blood Culture - Preliminary NO GROWTH AFTER 2 DAYS 04/20/19 18:45 Urine Culture - Final Urine, Clean Catch Escherichia Coli Normal Urogenital Marilu Med Orders - Current: Current Medications Discontinued Medications Albuterol (Ventolin Hfa) 0 gm INH Q4H PRN PRN Reason: Shortness of Breath Albuterol/Ipratropium (Duoneb 3.0-0.5 Mg/3 Ml) 3 ml NEB Q4H PRN PRN Reason: Shortness Of Breath/wheezing Bisacodyl (Dulcolax) 5 mg PO DAILY PRN PRN Reason: Constipation Diltiazem HCl (Diltiazem) 20 mg IVPUSH ONETIME ONE Stop: 04/20/19 16:35 Last Admin: 04/20/19 16:47 Dose: 20 mg Diltiazem HCl (Diltiazem) 20 mg IVPUSH Q6H PRN PRN Reason: Tachycardia Last Admin: 04/22/19 01:03 Dose: 20 mg Diltiazem HCl (Cardizem Cd) 120 mg PO DAILY [facility] Last Admin: 04/22/19 11:34 Dose: 120 mg Hydroxyzine HCl (Atarax) 25 mg PO TID [facility] Last Admin: 04/22/19 13:15 Dose: 25 mg Vancomycin HCl 1 gm/ Sodium (Chloride) 250 mls @ 166 mls/hr IV ONETIME ONE Stop: 04/20/19 18:05 Last Admin: 04/20/19 16:47 Dose: 166 mls/hr Linezolid 600 mg/ Premix 300 mls @ 300 mls/hr IV Q12H [facility] Last Admin: 04/22/19 10:58 Dose: 300 mls/hr Amiodarone HCl 150 mg/ (Dextrose/Water) 103 mls @ 600 mls/hr IV .BOLUS ONE Stop: 04/21/19 10:29 Last Admin: 04/21/19 11:24 Dose: 600 mls/hr Ceftriaxone Sodium/Dextrose 1 (gm/ Premix) 50 mls @ 100 mls/hr IV Q24H [facility] Last Admin: 04/22/19 10:18 Dose: 100 mls/hr Lisinopril (Prinivil) 5 mg PO DAILY [facility] Last Admin: 04/22/19 09:05 Dose: 5 mg Metoprolol Tartrate (Lopressor) 25 mg PO DAILY [facility] Last Admin: 04/22/19 09:05 Dose: 25 mg Metoprolol Tartrate (Lopressor) 25 mg PO BID [facility] Morphine Sulfate (Morphine) 2 mg IVPUSH Q2H PRN PRN Reason: Pain (severe 7-10) Stop: 04/21/19 18:03 Last Admin: 04/21/19 03:00 Dose: 2 mg Ondansetron HCl (Zofran Odt) 4 mg PO Q6H PRN PRN Reason: nausea, able to take PO Oxycodone HCl (Oxycodone) 5 mg PO Q4H PRN PRN Reason: Pain (moderate 4-6) Last Admin: 04/21/19 21:37 Dose: 5 mg [facility]op[facility]ole [facility] Last Admin: 04/22/19 06:30 Dose: 40 mg Ropinirole HCl (Requip) 1 mg PO BEDTIME [facility] Last Admin: 04/21/19 21:31 Dose: 1 mg Sertraline HCl (Zoloft) 50 mg PO DAILY [facility] Last Admin: 04/21/19 08:39 Dose: 50 mg Sodium Bicarbonate (Sodium Bicarbonate) 325 mg PO BID [facility] Last Admin: 04/22/19 09:06 Dose: 325 mg Temazepam (Restoril) 15 mg PO BEDTIME PRN PRN Reason: Sleep Warfarin Sodium (Coumadin) 2.5 mg PO DAILY@1400 ONE Stop: 04/21/19 14:01 Last Admin: 04/21/19 14:22 Dose: 2.5 mg Warfarin Sodium (Coumadin Ask) 1 each PO DAILY@1400 [facility] Last Admin: 04/22/19 13:05 Dose: Not Given Warfarin Sodium (Coumadin) 5 mg PO DAILY@1400 ONE Stop: 04/22/19 14:01 Last Admin: 04/22/19 13:15 Dose: 5 mg
[2019-04-22] MEDS ORDERED: Warfarin 5 MG Tab PO ONE (14:00)
[2019-04-22] MEDS ORDERED: Metoprolol Tartrate 25 MG Tab PO SCH (21:00)
[2019-04-23] MEDS ORDERED: Warfarin 2.5 MG Tab PO SCH (14:00)
--- NOTE | 2019-04-24 10:14 | ECHO ---
The echocardiogram report can be seen in this patient's EMR (Electronic Medical Record) in the Reports section. The echocardiogram report has also been scanned into PACS and can be seen there as well. [facility]
== END 2019-04-22 15:10 | DRG 603 ==
LOC: MW.ED 15:05 → MW.MS 17:00 → OBSVTOIN 04-22 09:01 → MW.MS 04-22 09:51
PROVIDERS: ADMIT Internal Medicine; ATTEND Internal Medicine
DX: L03.116 Cellulitis of left lower limb (principal); L03.119 Cellulitis of unspecified part of limb; I48.91 Unspecified atrial fibrillation; I48.92 Unspecified atrial flutter; I50.32 Chronic diastolic (congestive) heart failure; I13.0 Hypertensive heart and chronic kidney disease with heart failure and stage 1 through stage 4 chronic kidney disease, or unspecified chronic kidney disease; I12.9 Hypertensive chronic kidney disease with stage 1 through stage 4 chronic kidney disease, or unspecified chronic kidney disease; Z68.41 Body mass index [BMI] 40.0-44.9, adult; N39.0 Urinary tract infection, site not specified; K44.9 Diaphragmatic hernia without obstruction or gangrene; N17.9 Acute kidney failure, unspecified; L03.115 Cellulitis of right lower limb; N18.3 Chronic kidney disease, stage 3 (moderate); H54.7 Unspecified visual loss; Z68.30 Body mass index [BMI] 30.0-30.9, adult; K21.9 Gastro-esophageal reflux disease without esophagitis; Z88.7 Allergy status to serum and vaccine; Z91.048 Other nonmedicinal substance allergy status; M19.90 Unspecified osteoarthritis, unspecified site; G25.81 Restless legs syndrome; E66.9 Obesity, unspecified; I89.0 Lymphedema, not elsewhere classified; I48.2 Chronic atrial fibrillation; B96.20 Unspecified Escherichia coli [E. coli] as the cause of diseases classified elsewhere; Z79.01 Long term (current) use of anticoagulants; Z86.73 Personal history of transient ischemic attack (TIA), and cerebral infarction without residual deficits; Z98.890 Other specified postprocedural states; Z90.49 Acquired absence of other specified parts of digestive tract; Z86.718 Personal history of other venous thrombosis and embolism; Z79.899 Other long term (current) drug therapy; Z79.51 Long term (current) use of inhaled steroids; Z88.8 Allergy status to other drugs, medicaments and biological substances; Z91.040 Latex allergy status; Z79.52 Long term (current) use of systemic steroids
CPT/HCPCS: 36415 ×2; 71045 ×2; 80048; 80053 ×2; 81001; 83735; 83880; 84484 ×3; 85025 ×3; 85610 ×3; 87040 ×2; 87086; 87088; 87186; 93005; 96365; 96366; 96375 ×3; 96376 ×3; 99285; A9270 ×19; G0378 ×2; J0282; J2020 ×2; J2270 ×2; J3370; J3490 ×5; J7050; J7060; 29580-50; 81003; 93306; 96374; 97161-GP; J0696

== ENCOUNTER 2019-05-06 14:43 | Emergency (ER) | payer MEDICARE, BC ==
--- NOTE | 2019-05-06 15:07 | EDM.PDOC ---
ED HPI GENERAL MEDICAL PROBLEM - General Chief Complaint: Skin Complaint Stated Complaint: allergic reaction Time Seen by Provider: 05/06/19 15:07 Source of Information: Reports: Patient History Limitations: Reports: No Limitations - History of Present Illness INITIAL COMMENTS - FREE TEXT/NARRATIVE: HISTORY AND PHYSICAL: History of present illness: Patient is a 68-year-old female presents to the ED with complaint of a rash. She states it started on her arms 4 days ago and has progressively spread to her whole body. She states it is itchy but not painful. She took a couple of doses of benadryl without relief of symptoms. She was seen for a similar rash a few weeks ago after taking clindamycin which resolved with steroids. She denies fevers, chills, SOB, chest pain, abdominal pain, nausea, vomiting, diarrhea, dysuria. Patient was recently started on a cephalosporin antibiotic for a UTI. She states she is no longer having UTI symptoms. Patient also notes having an upper respiratory infection with a slight cough and runny nose. Review of systems: As per history of present illness and below otherwise all systems reviewed and negative. Past medical history: As per history of present illness and as reviewed below otherwise noncontributory. Surgical history: As per history of present illness and as reviewed below otherwise noncontributory. Social history: No reported history of drug or alcohol abuse. Family history: As per history of present illness and as reviewed below otherwise noncontributory. Physical exam: General: Patient sitting comfortably in no acute distress and nontoxic appearing HEENT: No oral lesions noted. No conjunctivitis. Atraumatic, normocephalic, pupils reactive, negative for conjunctival pallor or scleral icterus, mucous membranes moist, throat clear, neck supple, nontender, trachea midline. No meningeal signs. Lungs: Clear to auscultation, breath sounds equal bilaterally, chest nontender. Heart: S1S2, regular, negative for clicks, rubs, or overt murmur. Abdomen: Soft, nondistended, nontender. Negative for masses or hepatosplenomegaly. Negative for costovertebral tenderness. No rigidity, rebound , guarding. Pelvis: Stable nontender. 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: Deferred. Rectal: Deferred. Rash: Diffuse morbilliform rash of the arms, trunk, back, legs that blanches with pressure. Spares face and palms Extremities: Atraumatic, negative for cords or calf pain. Neurovascular unremarkable. Neuro: Awake, alert, oriented. Cranial nerves II through XII unremarkable. Cerebellum unremarkable. Motor and sensory unremarkable throughout. Exam nonfocal. Notes: Patient informed of elevated INR, she has a follow up with Dr. Landaverde tomorrow and will have it adjusted as needed. She has already taken her schedule dose of warfarin today. Diagnostics: CBC, CMP, PT/INR Therapeutics: [] Prescriptions: Impression: Drug Rash Plan: Discontinue antibiotic and take benadryl as instructed Follow up with primary care provider Return to ED as needed as discussed Definitive disposition and diagnosis as appropriate pending reevaluation and review of above. rash Pain Score (Numeric/FACES): 7 - Related Data Allergies Allergy/AdvReac Type Severity Reaction Status Date / Time adhesive Allergy Rash Verified 04/22/19 10:53 latex Allergy Rash Verified 04/22/19 10:53 tetanus and diphtheria Allergy Rash Verified 04/22/19 10:53 toxoids [tetanus & diphtheria toxoids] Home Meds: Home Meds Pantoprazole Sodium 40 mg PO DAILY 03/11/16 [History] Metoprolol Tartrate 50 mg PO BID 06/24/17 [History] Sertraline HCl 100 mg PO DAILY 03/15/18 [History] Sodium Bicarbonate 1 tab PO BID 03/15/18 [History] Warfarin [Coumadin] 5 mg PO SuMoWeFr@1400 08/20/18 [History] hydrOXYzine HCl [hydrOXYzine] 25 mg PO TID 08/20/18 [History] rOPINIRole [Requip] 1 mg PO BEDTIME 08/20/18 [History] Furosemide [Lasix] 1 tab PO DAILY 04/20/19 [History] Levothyroxine Sodium [Levo-T] 1 tab PO DAILY 04/20/19 [History] Diltiazem [Cardizem CD] 120 mg PO DAILY cap.cd 04/22/19 [Rx] Cefpodoxime [Vantin] 200 mg PO BID 05/06/19 [History] Multivitamin/Iron/Folic Acid [Centrum Women Tablet] 1 tab PO DAILY 05/06/19 [ History] Past Medical History - Past Health History Medical/Surgical History: Denies Medical/Surgical History HEENT History: Reports: Impaired Vision Other HEENT History: wears glasses Cardiovascular History: Reports: Afib, Blood Clots/VTE/DVT, Hypertension Other Cardiovascular History: lymphadema, hx of DVT to left leg Respiratory History: Reports: None Gastrointestinal History: Reports: GERD, Hiatal Hernia Other Gastrointestinal History: barretts esphagus 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 History: Reports: None Other 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 History: recent UTI 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: Musculoskeletal History: Reports: Arthritis Neurological History: Reports: CVA, Other (See Below) Other Neuro History: has restless leg syndrome Psychiatric History: Reports: None Endocrine/Metabolic History: Reports: Obesity/BMI 30+ Hematologic History: Reports: Blood Transfusion(s) Immunologic History: Reports: None Oncologic (Cancer) History: Reports: None Dermatologic History: Reports: Venous Stasis Dermatitis Other Dermatologic History: has bilateral leg lymphedema, has had open sores on legs in past - Infectious Disease History Infectious Disease History: Reports: Chicken Pox - Past Surgical History Head Surgeries/Procedures: Reports: None GI Surgical History: Reports: Bariatric Procedure, Cholecystectomy, EGD, Other ( See Below) Female Surgical History: Reports: Section Social & Family History - Family History Family Medical History: Noncontributory Cardiac: Reports: Hypertension - Tobacco Use Smoking Status *Q: Never Smoker - Caffeine Use Caffeine Use: Reports: Tea Caffeine Use Comment: occasional - Recreational Drug Use Recreational Drug Use: No - Living Situation & Occupation Living situation: Reports: , with Spouse Occupation: Retired ED ROS GENERAL - Review of Systems Review Of Systems: ROS reveals no pertinent complaints other than HPI. ED EXAM, SKIN/RASH Exam: See Below (see dictation) Course - Vital Signs Last Recorded V/S: Last Vital Signs Temp 97 F 05/06/19 14:53 Pulse 99 05/06/19 14:53 Resp 16 05/06/19 14:53 BP 122/63 05/06/19 14:53 Pulse Ox 98 05/06/19 14:53 - Orders/Labs/Meds Orders: Active Orders 24 hr Category Date Time Status Chest 1V Frontal [CR] Stat Exams 05/06/19 15:41 Taken Labs: Laboratory Tests 05/06/19 05/06/19 05/06/19 Range/Units 15:25 15:25 15:40 WBC 13.29 H (4.0-11.0) K/uL RBC 3.62 L (4.30-5.90) M/uL Hgb 10.8 L (12.0-16.0) g/dL Hct 33.2 L (36.0-46.0) % MCV 91.7 (80.0-98.0) fL MCH 29.8 (27.0-32.0) pg MCHC 32.5 (31.0-37.0) g/dL RDW Std Deviation 48.0 (28.0-62.0) fl RDW Coeff of Frank 14 (11.0-15.0) % Plt Count 345 (150-400) K/uL MPV 10.50 (7.40-12.00) fL Neut % (Auto) 80.9 H (48.0-80.0) % Lymph % (Auto) 9.1 L (16.0-40.0) % Imperial % (Auto) 6.2 (0.0-15.0) % Eos % (Auto) 3.6 (0.0-7.0) % Baso % (Auto) 0.2 (0.0-1.5) % Neut # (Auto) 10.8 H (1.4-5.7) K/uL Lymph # (Auto) 1.2 (0.6-2.4) K/uL Imperial # (Auto) 0.8 (0.0-0.8) K/uL Eos # (Auto) 0.5 (0.0-0.7) K/uL Baso # (Auto) 0.0 (0.0-0.1) K/uL Nucleated RBC % 0.0 /100WBC Nucleated RBCs # 0 K/uL INR 5.11 Sodium 140 (136-145) mmol/L Potassium 4.0 (3.5-5.1) mmol/L Chloride 106 (98-107) mmol/L Carbon Dioxide 22.2 (21.0-32.0) mmol/L BUN 53 H (7.0-18.0) mg/dL Creatinine 2.0 H (0.6-1.0) mg/dL Est Cr Clr Drug Dosing 21.96 mL/min Estimated GFR (MDRD) 24.7 ml/min Glucose 117 H (74-106) mg/dL Calcium 9.0 (8.5-10.1) mg/dL Total Bilirubin 0.3 (0.2-1.0) mg/dL AST 26 (15-37) IU/L ALT 27 (14-63) IU/L Alkaline Phosphatase 214 H (46-116) U/L Total Protein 5.9 L (6.4-8.2) g/dL Albumin 2.3 L (3.4-5.0) g/dL Globulin 3.6 (2.6-4.0) g/dL Albumin/Globulin Ratio 0.6 L (0.9-1.6) Meds: Medications Discontinued Medications Generic Name Dose Route Start Last Admin Trade Name Freq PRN Reason Stop Dose Admin Methylprednisolone Sodium Succinate 125 mg 05/06/19 15:12 05/06/19 15:26 Solu-Medrol IM 05/06/19 15:13 Not Given ONETIME ONE Departure - Departure Time of Disposition: 16:28 Disposition: Home, Self-Care 01 Condition: Good Clinical Impression: Drug rash - Discharge Information Referrals: PCP,Unknown [Primary Care Provider] - Forms: ED Department Discharge Additional Instructions: The following information is given to patients seen in the emergency department who are being discharged to home. This information is to outline your options for follow-up care. We provide all patients seen in our emergency department with a follow-up referral. The need for follow-up, as well as the timing and circumstances, are variable depending upon the specifics of your emergency department visit. If you don't have a primary care physician on staff, we will provide you with a referral. We always advise you to contact your personal physician following an emergency department visit to inform them of the circumstance of the visit and for follow-up with them and/or the need for any referrals to a consulting specialist. The emergency department will also refer you to a specialist when appropriate. This referral assures that you have the opportunity for follow-up care with a specialist. All of these measure are taken in an effort to provide you with optimal care, which includes your follow-up. Under all circumstances we always encourage you to contact your private physician who remains a resource for coordinating your care. When calling for follow-up care, please make the office aware that this follow-up is from your recent emergency room visit. If for any reason you are refused follow-up, please contact the [facility] Emergency Department at and asked to speak to the emergency department charge nurse. MAR[facility] [address] [place] [address] [facility] [address] [place] [id number] Discontinue antibiotic and take benadryl as instructed Follow up with primary care provider Return to ED as needed as discussed - My Orders Last 24 Hours: My Active Orders 05/06/19 15:41 Chest 1V Frontal [CR] Stat - Assessment/Plan Last 24 Hours: My Active Orders 05/06/19 15:41 Chest 1V Frontal [CR] Stat
[2019-05-06] MEDS ORDERED: methylPREDNISolone Sodium Succinate 125 MG/2 ML SDV IM ONE (15:12)
[2019-05-06 15:52] LABS: CARBON DIOXIDE,CO2 22.2 mmol/L (21.0-32.0)
--- NOTE | 2019-05-06 16:28 | CR ---
Indication: Shortness of breath. Technique: Single AP portable view of the chest was obtained. Comparison: April 21, 2019. Findings: Heart is borderline in size. The lungs are clear. No infiltrate, pleural effusion, or pneumothorax is identified. Impression: Borderline cardiomegaly. Dictated by Candice Gross MD @ May 06 2019 4:00PM Signed by Dr. Candice Gross @ May 06 2019 4:28PM
[2019-05-06 16:47] VITALS: BP 134/59
== END 2019-05-06 16:49 | disposition home or self-care (01) ==
LOC: MW.ED 14:43
DX: L27.0 Generalized skin eruption due to drugs and medicaments taken internally (principal); T36.1X5A Adverse effect of cephalosporins and other beta-lactam antibiotics, initial encounter; K21.9 Gastro-esophageal reflux disease without esophagitis; I10 Essential (primary) hypertension; I48.91 Unspecified atrial fibrillation; M19.90 Unspecified osteoarthritis, unspecified site; Z91.040 Latex allergy status; Z91.048 Other nonmedicinal substance allergy status; Z88.7 Allergy status to serum and vaccine; Z79.01 Long term (current) use of anticoagulants; Z79.899 Other long term (current) drug therapy; Z86.718 Personal history of other venous thrombosis and embolism; Z86.73 Personal history of transient ischemic attack (TIA), and cerebral infarction without residual deficits
CPT/HCPCS: 36415; 71045; 71045-26; 80053; 85025; 85610; 99283; 99283-25

== ENCOUNTER 2019-05-23 13:52 | Emergency (ER) | payer MEDICARE, BC ==
[2019-05-23] MEDS ORDERED: Sodium Chloride 0.9% 10 ML Syringe FLUSH PRN (14:11)
[2019-05-23] MEDS ORDERED: Sodium Chloride 0.9% 2.5 ML Syringe FLUSH PRN (14:11)
[2019-05-23] MEDS ORDERED: Diltiazem 25 MG/5 ML SDV IVPUSH ONE (14:13)
--- NOTE | 2019-05-23 15:09 | EDM.PDOC ---
ED HPI GENERAL MEDICAL PROBLEM - General Chief Complaint: Respiratory Problem Stated Complaint: SOB Time Seen by Provider: 05/23/19 13:55 Source of Information: Reports: Patient History Limitations: Reports: No Limitations - History of Present Illness INITIAL COMMENTS - FREE TEXT/NARRATIVE: History of present illness: []Patient has no new complaints but has had over a month of shortness of breath , rash, leg swelling with leg ulcers and is currently being treated by home will help with dressing changes 3 times a day. She notes no acute changes. She has UTI, currently on antibiotics. She has a history of A. fibon diltiazem. She denies any chest pain, dizziness, nausea, vomiting or diarrhea. Review of systems: As per history of present illness and below otherwise all systems reviewed and negative. Past medical history: As per history of present illness and as reviewed below otherwise noncontributory. Surgical history: As per history of present illness and as reviewed below otherwise noncontributory. Social history: No reported history of drug or alcohol abuse. Family history: As per history of present illness and as reviewed below otherwise noncontributory. Physical exam: General: Well developed, well nourished in NAD HEENT: Atraumatic, normocephalic, pupils reactive, negative for conjunctival pallor or scleral icterus, mucous membranes moist, throat clear, neck supple, nontender, trachea midline. Lungs: Clear to auscultation, breath sounds equal bilaterally, chest nontender. No Chest wall retractions or respiratory distress, no wheezing Heart: S1S2, regular, negative for clicks, rubs, or JVD. Lower leg edema chronic wound wounds wrapped Abdomen: NABS, Soft, nondistended, nontender, rebound or guarding. Negative for masses or hepatosplenomegaly. Negative for costovertebral tenderness. Pelvis: Stable nontender. 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: Deferred. Rectal: Deferred. Extremities: Bilateral edema, . Neurovascular unremarkable. Neuro: Awake, alert, oriented. Cranial nerves II through XII unremarkable. Cerebellum unremarkable. Motor and sensory unremarkable throughout. Exam nonfocal. Skin:warm and dry Diagnostics: CBC, chemistry, EKG, chest x-ray Therapeutics: Diltiazem 10 mg ED Course: Stable Impression: Atrial fibrillation with ventricular rate 100 Prescriptions: None Plan: Take meds as directed, follow up with your primary care physician, return to ER if symptoms worsen or change. Definitive disposition and diagnosis as appropriate pending reevaluation and review of above. - Related Data Allergies Allergy/AdvReac Type Severity Reaction Status Date / Time adhesive Allergy Rash Verified 05/23/19 14:10 latex Allergy Rash Verified 05/23/19 14:10 tetanus and diphtheria Allergy Rash Verified 05/23/19 14:10 toxoids [tetanus & diphtheria toxoids] Home Meds: Home Meds Pantoprazole Sodium 40 mg PO DAILY 03/11/16 [History] Metoprolol Tartrate 50 mg PO BID 06/24/17 [History] Sertraline HCl 100 mg PO DAILY 03/15/18 [History] Sodium Bicarbonate 1 tab PO BID 03/15/18 [History] Warfarin [Coumadin] 5 mg PO SuMoWeFr@1400 08/20/18 [History] hydrOXYzine HCl [hydrOXYzine] 25 mg PO TID 08/20/18 [History] rOPINIRole [Requip] 1 mg PO BEDTIME 08/20/18 [History] Furosemide [Lasix] 1 tab PO DAILY 04/20/19 [History] Levothyroxine Sodium [Levo-T] 1 tab PO DAILY 04/20/19 [History] Diltiazem [Cardizem CD] 120 mg PO DAILY cap.cd 04/22/19 [Rx] Cefpodoxime [Vantin] 200 mg PO BID 05/06/19 [History] Multivitamin/Iron/Folic Acid [Centrum Women Tablet] 1 tab PO DAILY 05/06/19 [ History] Past Medical History - Past Health History Medical/Surgical History: Denies Medical/Surgical History HEENT History: Reports: Impaired Vision Other HEENT History: wears glasses Cardiovascular History: Reports: Afib, Blood Clots/VTE/DVT, Hypertension Other Cardiovascular History: lymphadema, hx of DVT to left leg Respiratory History: Reports: None Gastrointestinal History: Reports: GERD, Hiatal Hernia Other Gastrointestinal History: barretts esphagus 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 History: Reports: None Other 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 History: recent UTI 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: Musculoskeletal History: Reports: Arthritis Neurological History: Reports: CVA, Other (See Below) Other Neuro History: has restless leg syndrome Psychiatric History: Reports: None Endocrine/Metabolic History: Reports: Obesity/BMI 30+ Hematologic History: Reports: Blood Transfusion(s) Immunologic History: Reports: None Oncologic (Cancer) History: Reports: None Dermatologic History: Reports: Venous Stasis Dermatitis Other Dermatologic History: has bilateral leg lymphedema, has had open sores on legs in past - Infectious Disease History Infectious Disease History: Reports: Chicken Pox, Measles, Mumps - Past Surgical History Head Surgeries/Procedures: Reports: None GI Surgical History: Reports: Bariatric Procedure, Cholecystectomy, EGD, Other ( See Below) Female Surgical History: Reports: Section Social & Family History - Family History Family Medical History: Noncontributory Cardiac: Reports: Hypertension - Tobacco Use Smoking Status *Q: Never Smoker - Caffeine Use Caffeine Use: Reports: Tea Caffeine Use Comment: occasional - Recreational Drug Use Recreational Drug Use: No - Living Situation & Occupation Living situation: Reports: , with Spouse Occupation: Retired ED ROS GENERAL - Review of Systems Review Of Systems: See Below ED EXAM, GENERAL - Physical Exam Exam: See Below Course - Vital Signs Last Recorded V/S: Last Vital Signs Temp 97.5 F 05/23/19 14:06 Pulse 96 05/23/19 15:17 Resp 13 05/23/19 15:17 BP 139/65 05/23/19 15:17 Pulse Ox 97 05/23/19 15:17 - Orders/Labs/Meds Orders: Active Orders 24 hr Category Date Time Status Cardiac Monitoring [RC] . DIRECTED Care 05/23/19 14:11 Active EKG Documentation Completion [RC] STAT Care 05/23/19 14:11 Active Chest 2V [CR] Stat Exams 05/23/19 14:12 Taken Sodium Chloride 0.9% [Saline Flush] Med 05/23/19 14:11 Active 10 ml FLUSH ASDIRECTED PRN Sodium Chloride 0.9% [Saline Flush] Med 05/23/19 14:11 Active 2.5 ml FLUSH ASDIRECTED PRN Saline Lock Insert [OM.PC] Stat Oth 05/23/19 14:11 Ordered Medication Orders Sodium Chloride (Saline Flush) 10 ml FLUSH ASDIRECTED PRN PRN Reason: Keep Vein Open Sodium Chloride (Saline Flush) 2.5 ml FLUSH ASDIRECTED PRN PRN Reason: Keep Vein Open Labs: Laboratory Tests 05/23/19 05/23/19 05/23/19 Range/Units 14:50 14:50 14:50 WBC 15.95 H (4.0-11.0) K/uL RBC 3.76 L (4.30-5.90) M/uL Hgb 11.2 L (12.0-16.0) g/dL Hct 34.5 L (36.0-46.0) % MCV 91.8 (80.0-98.0) fL MCH 29.8 (27.0-32.0) pg MCHC 32.5 (31.0-37.0) g/dL RDW Std Deviation 48.8 (28.0-62.0) fl RDW Coeff of Frank 15 (11.0-15.0) % Plt Count 373 (150-400) K/uL MPV 10.10 (7.40-12.00) fL Neut % (Auto) 79.8 (48.0-80.0) % Lymph % (Auto) 8.8 L (16.0-40.0) % Alfalfa % (Auto) 8.0 (0.0-15.0) % Eos % (Auto) 3.1 (0.0-7.0) % Baso % (Auto) 0.3 (0.0-1.5) % Neut # (Auto) 12.7 H (1.4-5.7) K/uL Lymph # (Auto) 1.4 (0.6-2.4) K/uL Alfalfa # (Auto) 1.3 H (0.0-0.8) K/uL Eos # (Auto) 0.5 (0.0-0.7) K/uL Baso # (Auto) 0.1 (0.0-0.1) K/uL Nucleated RBC % 0.0 /100WBC Nucleated RBCs # 0 K/uL INR 3.28 Sodium 143 (136-145) mmol/L Potassium 3.8 (3.5-5.1) mmol/L Chloride 106 (98-107) mmol/L Carbon Dioxide 26.0 (21.0-32.0) mmol/L BUN 39 H (7.0-18.0) mg/dL Creatinine 2.0 H (0.6-1.0) mg/dL Est Cr Clr Drug Dosing 22.92 mL/min Estimated GFR (MDRD) 24.7 ml/min Glucose 97 (74-106) mg/dL Calcium 8.5 (8.5-10.1) mg/dL Total Bilirubin 0.6 (0.2-1.0) mg/dL AST 17 (15-37) IU/L ALT 20 (14-63) IU/L Alkaline Phosphatase 155 H (46-116) U/L Total Protein 5.5 L (6.4-8.2) g/dL Albumin 2.3 L (3.4-5.0) g/dL Globulin 3.2 (2.6-4.0) g/dL Albumin/Globulin Ratio 0.7 L (0.9-1.6) Meds: Medications Generic Name Dose Route Start Last Admin Trade Name Freq PRN Reason Stop Dose Admin Sodium Chloride 10 ml 05/23/19 14:11 Saline Flush FLUSH ASDIRECTED PRN Keep Vein Open Sodium Chloride 2.5 ml 05/23/19 14:11 Saline Flush FLUSH ASDIRECTED PRN Keep Vein Open Discontinued Medications Generic Name Dose Route Start Last Admin Trade Name Freq PRN Reason Stop Dose Admin Diltiazem HCl 10 mg 05/23/19 14:13 05/23/19 14:54 Diltiazem IVPUSH 05/23/19 14:14 10 mg ONETIME ONE Administration Departure - Departure Time of Disposition: 15:50 Disposition: Home, Self-Care 01 Condition: Good Clinical Impression: Atrial fibrillation Qualifiers: Atrial fibrillation type: chronic Qualified Code(s): I48.2 - Chronic atrial fibrillation - Discharge Information *PRESCRIPTION DRUG MONITORING PROGRAM REVIEWED*: Not Applicable *COPY OF PRESCRIPTION DRUG MONITORING REPORT IN PATIENT YUMI: Not Applicable Referrals: PCP,None [Primary Care Provider] - Forms: ED Department Discharge Additional Instructions: The following information is given to patients seen in the emergency department who are being discharged to home. This information is to outline your options for follow-up care. We provide all patients seen in our emergency department with a follow-up referral. The need for follow-up, as well as the timing and circumstances, are variable depending upon the specifics of your emergency department visit. If you don't have a primary care physician on staff, we will provide you with a referral. We always advise you to contact your personal physician following an emergency department visit to inform them of the circumstance of the visit and for follow-up with them and/or the need for any referrals to a consulting specialist. The emergency department will also refer you to a specialist when appropriate. This referral assures that you have the opportunity for follow-up care with a specialist. All of these measure are taken in an effort to provide you with optimal care, which includes your follow-up. Under all circumstances we always encourage you to contact your private physician who remains a resource for coordinating your care. When calling for follow-up care, please make the office aware that this follow-up is from your recent emergency room visit. If for any reason you are refused follow-up, please contact the [facility] Emergency Department at and asked to speak to the emergency department charge nurse. Take meds as directed, follow up with your primary care physician, return to ER if symptoms worsen or change. [facility] [address] [place] [id number] - My Orders Last 24 Hours: My Active Orders 05/23/19 14:11 Cardiac Monitoring [RC] . DIRECTED EKG Documentation Completion [RC] STAT Sodium Chloride 0.9% [Saline Flush] 10 ml FLUSH ASDIRECTED PRN Sodium Chloride 0.9% [Saline Flush] 2.5 ml FLUSH ASDIRECTED PRN Saline Lock Insert [OM.PC] Stat 05/23/19 14:12 Chest 2V [CR] Stat - Assessment/Plan Last 24 Hours: My Active Orders 05/23/19 14:11 Cardiac Monitoring [RC] . DIRECTED EKG Documentation Completion [RC] STAT Sodium Chloride 0.9% [Saline Flush] 10 ml FLUSH ASDIRECTED PRN Sodium Chloride 0.9% [Saline Flush] 2.5 ml FLUSH ASDIRECTED PRN Saline Lock Insert [OM.PC] Stat 05/23/19 14:12 Chest 2V [CR] Stat
[2019-05-23 15:23] LABS: POTASSIUM,K 3.8 mmol/L (3.5-5.1)
--- NOTE | 2019-05-23 15:46 | CR ---
Chest: Two views of the chest were obtained. Comparison: Prior chest x-ray of 05/06/19. Heart size is slightly enlarged. Mediastinum is normal. Nodule is identified within the right lung base which is seen on previous exam most likely obscured from lung markings. This nodule appears fairly dense and is most likely due to granuloma. Lungs show no acute parenchymal change. Degenerative spurring is noted within the spine. Surgical clips are seen within the upper abdomen. Impression: Findings as noted above. Nothing acute is appreciated. Diagnostic code #2 [id number]
[2019-05-23 16:38] VITALS: BP 144/66; PULSE 104
== END 2019-05-23 16:19 | disposition home or self-care (01) ==
LOC: MW.ED 13:52
DX: I48.2 Chronic atrial fibrillation (principal); I10 Essential (primary) hypertension; K21.9 Gastro-esophageal reflux disease without esophagitis; Z91.040 Latex allergy status; Z88.7 Allergy status to serum and vaccine; Z91.09 Other allergy status, other than to drugs and biological substances; Z79.899 Other long term (current) drug therapy; Z86.73 Personal history of transient ischemic attack (TIA), and cerebral infarction without residual deficits
CPT/HCPCS: 71046; 71046-26; 80053; 85025; 85610; 96374; 99285-25; J3490

== ENCOUNTER 2020-07-27 10:51 | Inpatient (IN) | payer MEDICARE, BC ==
--- NOTE | 2020-07-27 11:38 | EDM.PDOC ---
ED HPI GENERAL MEDICAL PROBLEM - General Chief Complaint: Skin Complaint Stated Complaint: INFECTION Time Seen by Provider: 07/27/20 11:35 Source of Information: Reports: Patient History Limitations: Reports: No Limitations - History of Present Illness INITIAL COMMENTS - FREE TEXT/NARRATIVE: Patient is a 69-year-old female who was sent over from clinic for evaluation of her lower extremities. Patient states she has been treated as outpatient with Bactrim for cellulitis of the lower extremities. Patient surgeon saw her today and feels that the infection is getting worse. Patient also has some fatigue but denies fever or chills or decreased p.o. intake. Patient also has a rash to her upper extremities and trunk likely due to the Bactrim she was taking. - Related Data Allergies Allergy/AdvReac Type Severity Reaction Status Date / Time adhesive Allergy Rash Verified 07/27/20 11:06 latex Allergy Rash Verified 07/27/20 11:06 tetanus and diphtheria Allergy Rash Verified 07/27/20 11:06 toxoids [tetanus & diphtheria toxoids] Home Meds: Home Meds Pantoprazole Sodium 40 mg PO DAILY 03/11/16 [History] Metoprolol Tartrate 50 mg PO BID 06/24/17 [History] Sertraline HCl 100 mg PO DAILY 03/15/18 [History] Sodium Bicarbonate 1 tab PO BID 03/15/18 [History] Warfarin [Coumadin] 5 mg PO [id number] 08/20/18 [History] hydrOXYzine HCL [hydrOXYzine] 25 mg PO TID 08/20/18 [History] Furosemide [Lasix] 1 tab PO DAILY 04/20/19 [History] Levothyroxine Sodium [Levo-T] 1 tab PO DAILY 04/20/19 [History] Diltiazem [Cardizem CD] 120 mg PO DAILY cap.cd 04/22/19 [Rx] Multivitamin/Iron/Folic Acid [Centrum Women Tablet] 1 tab PO DAILY 05/06/19 [History] Past Medical History - Past Health History Medical/Surgical History: Denies Medical/Surgical History HEENT History: Reports: Impaired Vision Other HEENT History: wears glasses Cardiovascular History: Reports: Afib, Blood Clots/VTE/DVT, Hypertension Other Cardiovascular History: lymphadema, hx of DVT to left leg Respiratory History: Reports: None Gastrointestinal History: Reports: GERD, Hiatal Hernia Other Gastrointestinal History: barretts esphagus 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 History: Reports: None Other 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 History: recent UTI [employer] History: Reports: Musculoskeletal History: Reports: Arthritis Neurological History: Reports: CVA, Other (See Below) Other Neuro History: has restless leg syndrome Psychiatric History: Reports: None Endocrine/Metabolic History: Reports: Obesity/BMI 30+ Hematologic History: Reports: Blood Transfusion(s) Immunologic History: Reports: None Oncologic (Cancer) History: Reports: None Dermatologic History: Reports: Venous Stasis Dermatitis Other Dermatologic History: has bilateral leg lymphedema, has had open sores on legs in past - Infectious Disease History Infectious Disease History: Reports: Chicken Pox, Measles, Mumps - Past Surgical History Head Surgeries/Procedures: Reports: None HEENT Surgical History: Reports: None Cardiovascular Surgical History: Reports: Other (See Below) Other Cardiovascular Surgeries/Procedures: stroke Respiratory Surgical History: Reports: None GI Surgical History: Reports: Bariatric Procedure, Cholecystectomy, EGD, Other (See Below) Other GI Surgeries/Procedures: had lap band [id number] yrs ago Female Surgical History: Reports: Section Endocrine Surgical History: Reports: None Neurological Surgical History: Reports: None Musculoskeletal Surgical History: Reports: Other (See Below) Other Musculoskeletal Surgeries/Procedures:: right leg surgery x3 Oncologic Surgical History: Reports: None Dermatological Surgical History: Reports: None Social & Family History - Family History Family Medical History: No Pertinent Family History Cardiac: Reports: Hypertension - Tobacco Use Tobacco Use Status *Q: Never Tobacco User - Caffeine Use Caffeine Use: Reports: None Caffeine Use Comment: occasional - Recreational Drug Use Recreational Drug Use: No - Living Situation & Occupation Living situation: Reports: , with Spouse Occupation: Retired ED ROS GENERAL - Review of Systems Review Of Systems: See Below Constitutional: Reports: Fatigue HEENT: Reports: No Symptoms Respiratory: Reports: No Symptoms Cardiovascular: Reports: No Symptoms Endocrine: Reports: No Symptoms GI/Abdominal: Reports: No Symptoms : Reports: No Symptoms Musculoskeletal: Reports: No Symptoms Skin: Reports: No Symptoms, Erythema, Urticaria Neurological: Reports: No Symptoms Psychiatric: Reports: No Symptoms Hematologic/Lymphatic: Reports: No Symptoms Immunologic: Reports: No Symptoms ED EXAM, SKIN/RASH Exam: See Below Exam Limited By: No Limitations General Appearance: Alert, No Apparent Distress Eye Exam: Bilateral Eye: EOMI, PERRL Respiratory/Chest: No Respiratory Distress, Lungs Clear Cardiovascular: Normal Peripheral Pulses, Regular Rate, Rhythm, No Edema GI/Abdominal: Normal Bowel Sounds, Soft, Non-Tender Extremities: Normal Range of Motion, Leg Pain, Redness Neurological: Alert, Oriented, CN II-XII Intact, Normal Cognition Skin: Petechiae, Rash Course - Vital Signs Last Recorded V/S: Last Vital Signs Temp 95.6 F L 07/27/20 11:09 Pulse 48 L 07/27/20 12:12 Resp 18 07/27/20 12:12 BP 132/44 L 07/27/20 12:12 Pulse Ox 98 07/27/20 12:12 - Orders/Labs/Meds Orders: Active Orders 24 hr Category Date Time Status Patient Status [ADT] Routine ADT 07/27/20 13:07 Active Chest 2V [CR] Stat Exams 07/27/20 11:39 Ordered CULTURE BLOOD [BC] Stat Lab 07/27/20 11:15 Received CULTURE BLOOD [BC] Stat Lab 07/27/20 11:50 Received VANCOmycin/Water for INJ (PEG) [VANCOmycin 1.5 GM/300 Med 07/27/20 13:05 Ordered ML Premix] 1.5 gm Premix Bag 1 bag IV ONETIME Blood Culture x2 Reflex Set [OM.PC] Stat Oth 07/27/20 11:02 Ordered Medication Orders Vancomycin HCl 1.5 gm/ Premix 300 mls @ 300 mls/hr IV ONETIME ONE Stop: 07/27/20 13:06 Labs: Laboratory Tests 07/27/20 07/27/20 07/27/20 Range/Units 11:15 11:15 11:15 WBC 8.20 (4.0-11.0) K/uL RBC 3.85 L (4.30-5.90) M/uL Hgb 11.1 L (12.0-16.0) g/dL Hct 35.5 L (36.0-46.0) % MCV 92.2 (80.0-98.0) fL MCH 28.8 (27.0-32.0) pg MCHC 31.3 (31.0-37.0) g/dL RDW Std Deviation 58.8 (28.0-62.0) fl RDW Coeff of Frank 18 H (11.0-15.0) % Plt Count 345 (150-400) K/uL MPV 12.90 H (7.40-12.00) fL Neut % (Auto) 64.1 (48.0-80.0) % Lymph % (Auto) 21.1 (16.0-40.0) % [place] % (Auto) 8.4 (0.0-15.0) % Eos % (Auto) 5.9 (0.0-7.0) % Baso % (Auto) 0.5 (0.0-1.5) % Neut # (Auto) 5.3 (1.4-5.7) K/uL Lymph # (Auto) 1.7 (0.6-2.4) K/uL [place] # (Auto) 0.7 (0.0-0.8) K/uL Eos # (Auto) 0.5 (0.0-0.7) K/uL Baso # (Auto) 0.0 (0.0-0.1) K/uL Nucleated RBC % 0.0 /100WBC Nucleated RBCs # 0 K/uL Lactate 1.2 (0.20-2.00) mmol/L Sodium 141 (136-145) mmol/L Potassium 4.3 (3.5-5.1) mmol/L Chloride 106 (98-107) mmol/L Carbon Dioxide 22.7 (21.0-32.0) mmol/L BUN 46 H (7.0-18.0) mg/dL Creatinine 3.0 H (0.6-1.0) mg/dL Est Cr Clr Drug Dosing 14.43 mL/min Estimated GFR (MDRD) 15.4 ml/min Glucose 114 H (74-106) mg/dL Calcium 9.2 (8.5-10.1) mg/dL Magnesium 2.0 (1.8-2.4) mg/dL Total Bilirubin 0.8 (0.2-1.0) mg/dL AST 66 H (15-37) IU/L ALT 61 (14-63) IU/L Alkaline Phosphatase 332 H (46-116) U/L C-Reactive Protein 4.90 H (0.00-0.90) mg/dL Total Protein 7.8 (6.4-8.2) g/dL Albumin 3.2 L (3.4-5.0) g/dL Globulin 4.6 H (2.6-4.0) g/dL Albumin/Globulin Ratio 0.7 L (0.9-1.6) SARS-CoV-2 RNA (LAURA) (NEGATIVE) 07/27/20 Range/Units 11:30 WBC (4.0-11.0) K/uL RBC (4.30-5.90) M/uL Hgb (12.0-16.0) g/dL Hct (36.0-46.0) % MCV (80.0-98.0) fL MCH (27.0-32.0) pg MCHC (31.0-37.0) g/dL RDW Std Deviation (28.0-62.0) fl RDW Coeff of Frank (11.0-15.0) % Plt Count (150-400) K/uL MPV (7.40-12.00) fL Neut % (Auto) (48.0-80.0) % Lymph % (Auto) (16.0-40.0) % [place] % (Auto) (0.0-15.0) % Eos % (Auto) (0.0-7.0) % Baso % (Auto) (0.0-1.5) % Neut # (Auto) (1.4-5.7) K/uL Lymph # (Auto) (0.6-2.4) K/uL [place] # (Auto) (0.0-0.8) K/uL Eos # (Auto) (0.0-0.7) K/uL Baso # (Auto) (0.0-0.1) K/uL Nucleated RBC % /100WBC Nucleated RBCs # K/uL Lactate (0.20-2.00) mmol/L Sodium (136-145) mmol/L Potassium (3.5-5.1) mmol/L Chloride (98-107) mmol/L Carbon Dioxide (21.0-32.0) mmol/L BUN (7.0-18.0) mg/dL Creatinine (0.6-1.0) mg/dL Est Cr Clr Drug Dosing mL/min Estimated GFR (MDRD) ml/min Glucose (74-106) mg/dL Calcium (8.5-10.1) mg/dL Magnesium (1.8-2.4) mg/dL Total Bilirubin (0.2-1.0) mg/dL AST (15-37) IU/L ALT (14-63) IU/L Alkaline Phosphatase (46-116) U/L C-Reactive Protein (0.00-0.90) mg/dL Total Protein (6.4-8.2) g/dL Albumin (3.4-5.0) g/dL Globulin (2.6-4.0) g/dL Albumin/Globulin Ratio (0.9-1.6) SARS-CoV-2 RNA (LAURA) NEGATIVE (NEGATIVE) Meds: Medications Generic Name Dose Route Start Last Admin Trade Name Freq PRN Reason Stop Dose Admin Vancomycin HCl 1.5 gm/ Premix 300 mls @ 300 mls/hr 07/27/20 13:05 IV 07/27/20 13:06 ONETIME ONE Departure - Departure Time of Disposition: 13:09 Disposition: Admitted As Inpatient 65 Condition: Good Clinical Impression: Cellulitis Qualifiers: Site of cellulitis: extremity Site of cellulitis of extremity: lower extremity Laterality: unspecified laterality Qualified Code(s): L03.119 - Cellulitis of unspecified part of limb - Discharge Information *PRESCRIPTION DRUG MONITORING PROGRAM REVIEWED*: Not Applicable *COPY OF PRESCRIPTION DRUG MONITORING REPORT IN PATIENT YUMI: Not Applicable Referrals: Staci Palomino MD [Primary Care Provider] - Forms: ED Department Discharge Sepsis Event Note (ED) - Evaluation Sepsis Screening Result: No Definite Risk - Focused Exam Vital Signs: Vital Signs Temp Pulse Resp BP BP Pulse Ox 07/27/20 12:12 48 L 18 132/44 L 98 07/27/20 11:09 95.6 F L 52 L 20 109/73 97 - My Orders Last 24 Hours: My Active Orders 07/27/20 11:02 Blood Culture x2 Reflex Set [OM.PC] Stat 07/27/20 11:15 CULTURE BLOOD [BC] Stat 07/27/20 11:39 Chest 2V [CR] Stat 07/27/20 11:50 CULTURE BLOOD [BC] Stat 07/27/20 13:05 VANCOmycin/Water for INJ (PEG) [VANCOmycin 1.5 GM/300 ML Premix] 1.5 gm Premix Bag 1 bag IV ONETIME 07/27/20 13:07 Patient Status [ADT] Routine - Assessment/Plan Last 24 Hours: My Active Orders 07/27/20 11:02 Blood Culture x2 Reflex Set [OM.PC] Stat 07/27/20 11:15 CULTURE BLOOD [BC] Stat 07/27/20 11:39 Chest 2V [CR] Stat 07/27/20 11:50 CULTURE BLOOD [BC] Stat 07/27/20 13:05 VANCOmycin/Water for INJ (PEG) [VANCOmycin 1.5 GM/300 ML Premix] 1.5 gm Premix Bag 1 bag IV ONETIME 07/27/20 13:07 Patient Status [ADT] Routine Plan: Patient is a 69-year-old female who was sent over from clinic for evaluation of her lower extremities. Patient has been treated for cellulitis that has not improved. Patient will likely require IV antibiotics. Patient also developed a rash from the Bactrim but has no difficulty swallowing or breathing. Will give antibiotics IV obtain labs and blood cultures and reassess.
[2020-07-27 11:58] LABS: CARBON DIOXIDE,CO2 22.7 mmol/L (21.0-32.0); POTASSIUM,K 4.3 mmol/L (3.5-5.1)
--- NOTE | 2020-07-27 14:10 | CR ---
INDICATION: Lower extremity cellulitis COMPARISON: Two view chest dated 05/23/2019 TECHNIQUE: Two view chest. FINDINGS: The lungs are clear. The heart, mediastinum and pulmonary vessels are of normal size. There is no evidence of pleural fluid. The laparoscopic gastric band remains in stable position. IMPRESSION: Negative chest. Dictated by Dar Lara MD @ Jul 27 2020 2:07PM Signed by Dr. Dar Lara @ Jul 27 2020 2:09PM
[2020-07-27] MEDS ORDERED: Docusate Sodium 100 MG Cap PO PRN (14:11)
[2020-07-27] MEDS ORDERED: Ondansetron 4 MG/2 ML SDV IVPUSH PRN (14:11)
[2020-07-27] MEDS ORDERED: Sodium Chloride 0.9% 2.5 ML Syringe FLUSH PRN (14:11)
[2020-07-27] MEDS ORDERED: Acetaminophen 325 MG Tab PO PRN (14:11)
--- NOTE | 2020-07-27 14:27 | PCM.HP.2 ---
H&P History of Present Illness - General Date of Service: 07/27/20 Admit Problem/Dx: Admission Diagnosis/Problem Admission Diagnosis/Problem Cellulitis Source of Information: Patient History Limitations: Reports: No Limitations - History of Present Illness Initial Comments - Free Text/Narative: This 69-year-old female with PMH of hypothyroidism, atrial fibrillation on chron ic anticoagulation with Coumadin, CKD, chronic lymphedema to bilateral lower extremities HTN MRSA and recent C. difficile infection, chronic venous stasis dermatitis to bilateral lower extremities, and CVA presented to the ER today after seeing Dr. Barkley in her office. Per report Dr. Barkley states patient was very weak and tired appearing as well as became nauseated and vomited within the clinic. She was seen at the clinic on 07/20/2020 for leg ulcer consult. She was placed on Bactrim for cellulitis on July 14, 2020 for MRSA infection noted to her right leg. She reports at home she started developing a rash to her extremities which is itchy at nighttime. She also noted more redness to her left lower extremity. She had some bruising due to folded compression stockings on her left thigh. Bilateral legs started weeping the last few days, and has been wrapping them with dry Kerlix. She denies any fevers. She reports overall fatigue and malaise. No chest pain or shortness of breath. No abdominal pain or troubles urinating. No diarrhea. Reports that this has impro niki significantly and finished oral vancomycin for recent C. difficile diarrhea. She reports that she has been on antibiotics on and off for the last month due to her lower extremities. She has a chronic wounds to bilateral calves, the right worse than the left. Wound VAC was explored for the right to help with healing but this was denied by insurance due to previous use of wound VAC. She denies any alcohol use no recreational drug use no tobacco use. In the ER no leukocytosis noted hemoglobin 11.1 BUN 46 creatinine 3.0 which is elevated from baseline of 1.8. Chest x-ray negative. Vital signs are stable while in the ER. She was treated with vancomycin in the ER. She will be admitted inpatient for left lower extremity cellulitis and LIZ. PCP Dr. Palomino - Related Data Allergies/Adverse Reactions: Allergies Allergy/AdvReac Type Severity Reaction Status Date / Time sulfamethoxazole Allergy Intermediate Rash Verified 07/27/20 16:31 [From Bactrim] trimethoprim [From Bactrim] Allergy Intermediate Rash Verified 07/27/20 16:31 adhesive Allergy Rash Verified 07/27/20 16:30 latex Allergy Rash Verified 07/27/20 16:30 tetanus and diphtheria Allergy Rash Verified 07/27/20 16:30 toxoids [tetanus & diphtheria toxoids] Home Medications: Home Meds Metoprolol Tartrate 100 mg PO BID 06/24/17 [History] Sertraline HCl 50 mg PO DAILY 03/15/18 [History] hydrOXYzine HCL [hydrOXYzine] 25 mg PO TID PRN 08/20/18 [History] Furosemide [Lasix] 20 mg PO DAILY 04/20/19 [History] Levothyroxine Sodium [Levo-T] 75 mcg PO ACBREAKFAST 04/20/19 [History] Multivitamin/Iron/Folic Acid [Centrum Women Tablet] 1 tab PO DAILY 05/06/19 [History] Amiodarone [Cordarone] 200 mg PO BID 07/27/20 [History] Ferrous Sulfate 325 mg PO BIDMEALS 07/27/20 [History] Warfarin [Coumadin] 1 mg PO SUTUWEFRSA@1400 07/27/20 [History] Warfarin [Coumadin] 2 mg PO MOTH@1400 07/27/20 [History] atorvaSTATin Calcium [Atorvastatin Calcium] 40 mg PO DAILY 07/27/20 [History] traMADol [Ultram] 50 mg PO Q8H PRN 07/27/20 [History] Past Medical History - Past Health History Medical/Surgical History: Denies Medical/Surgical History HEENT History: Reports: Impaired Vision Other HEENT History: wears glasses Cardiovascular History: Reports: Afib, Blood Clots/VTE/DVT, Hypertension Other Cardiovascular History: lymphadema, hx of DVT to left leg Respiratory History: Reports: None Gastrointestinal History: Reports: GERD, Hiatal Hernia Other Gastrointestinal History: barretts esphagus 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 History: Reports: None Other 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 History: recent UTI JANITOR HEAD History: Reports: Musculoskeletal History: Reports: Arthritis Neurological History: Reports: CVA, Other (See Below) Other Neuro History: has restless leg syndrome Psychiatric History: Reports: None Endocrine/Metabolic History: Reports: Obesity/BMI 30+ Hematologic History: Reports: Blood Transfusion(s) Immunologic History: Reports: None Oncologic (Cancer) History: Reports: None Dermatologic History: Reports: Venous Stasis Dermatitis Other Dermatologic History: has bilateral leg lymphedema, has had open sores on legs in past - Infectious Disease History Infectious Disease History: Reports: Chicken Pox, Measles, Mumps - Past Surgical History Head Surgeries/Procedures: Reports: None HEENT Surgical History: Reports: None Cardiovascular Surgical History: Reports: Other (See Below) Other Cardiovascular Surgeries/Procedures: stroke Respiratory Surgical History: Reports: None GI Surgical History: Reports: Bariatric Procedure, Cholecystectomy, EGD, Other (See Below) Other GI Surgeries/Procedures: had lap band [id number] yrs ago Female Surgical History: Reports: Section Endocrine Surgical History: Reports: None Neurological Surgical History: Reports: None Musculoskeletal Surgical History: Reports: Other (See Below) Other Musculoskeletal Surgeries/Procedures:: right leg surgery x3 Oncologic Surgical History: Reports: None Dermatological Surgical History: Reports: None Social & Family History - Family History Family Medical History: No Pertinent Family History Cardiac: Reports: Hypertension - Tobacco Use Tobacco Use Status *Q: Never Tobacco User - Caffeine Use Caffeine Use: Reports: None Caffeine Use Comment: occasional - Recreational Drug Use Recreational Drug Use: No - Living Situation & Occupation Living situation: Reports: , with Spouse Occupation: Retired H&P Review of Systems - Review of Systems: Review Of Systems: See Below General: Reports: Malaise, Weakness, Fatigue HEENT: Reports: Vertigo Pulmonary: Reports: No Symptoms. Denies: Shortness of Breath, Pleuritic Chest Pain, Cough Cardiovascular: Reports: Edema (lower legs). Denies: Chest Pain Gastrointestinal: Reports: No Symptoms. Denies: Black Stool, Bloody Stool, Nausea 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: Reports: No Symptoms Musculoskeletal: Reports: No Symptoms Skin: Reports: Wound (lower extremities, especially R) Psychiatric: Reports: No Symptoms Neurological: Reports: No Symptoms Hematologic/Lymphatic: Reports: No Symptoms Immunologic: Reports: No Symptoms Exam - Exam Exam: See Below - Vital Signs Vital Signs: Last Vital Signs Temp 95.6 F L 07/27/20 11:09 Pulse 48 L 07/27/20 12:12 Resp 18 07/27/20 12:12 BP 132/44 L 07/27/20 12:12 Pulse Ox 98 07/27/20 12:12 Weight: 111.13 kg - Exam Quality Assessment: DVT Prophylaxis General: Alert, Oriented, Cooperative HEENT: Conjunctiva Clear, Posterior Pharynx Clear Lungs: Clear to Auscultation, Normal Respiratory Effort Cardiovascular: Regular Rate, Regular Rhythm GI/Abdominal Exam: Normal Bowel Sounds, Soft, Non-Tender, No Organomegaly, No D istention Extremities: Pedal Edema (bilaterally, lymphedema noted) Skin: Rash (papular rash noted to arms and legs, trunk spared. likely drug eruption rash. no oral or mucous membrane involvement. Non itchy, but does notice itching at night), Wound (large healing ulcer noted to posterior R calf, with wet to dry dressing intact. Small puncture noted to R posterior knee with serous drainage, small necrotic region noted to R medial knee, with serous drainage as well, skin tear. Linear transverse healing scabbed areas to posterior L calf.) Neuro Extensive - Mental Status: Alert, Oriented x3 Psychiatric: Alert, Normal Affect, Normal Mood - Patient Data Lab Results Last 24 hrs: Laboratory Results - last 24 hr 07/27/20 07/27/20 07/27/20 Range/Units 11:15 11:15 11:15 WBC 8.20 (4.0-11.0) K/uL RBC 3.85 L (4.30-5.90) M/uL Hgb 11.1 L (12.0-16.0) g/dL Hct 35.5 L (36.0-46.0) % MCV 92.2 (80.0-98.0) fL MCH 28.8 (27.0-32.0) pg MCHC 31.3 (31.0-37.0) g/dL RDW Std Deviation 58.8 (28.0-62.0) fl RDW Coeff of Frank 18 H (11.0-15.0) % Plt Count 345 (150-400) K/uL MPV 12.90 H (7.40-12.00) fL Neut % (Auto) 64.1 (48.0-80.0) % Lymph % (Auto) 21.1 (16.0-40.0) % Aurora % (Auto) 8.4 (0.0-15.0) % Eos % (Auto) 5.9 (0.0-7.0) % Baso % (Auto) 0.5 (0.0-1.5) % Neut # (Auto) 5.3 (1.4-5.7) K/uL Lymph # (Auto) 1.7 (0.6-2.4) K/uL Aurora # (Auto) 0.7 (0.0-0.8) K/uL Eos # (Auto) 0.5 (0.0-0.7) K/uL Baso # (Auto) 0.0 (0.0-0.1) K/uL Nucleated RBC % 0.0 /100WBC Nucleated RBCs # 0 K/uL Lactate 1.2 (0.20-2.00) mmol/L Sodium 141 (136-145) mmol/L Potassium 4.3 (3.5-5.1) mmol/L Chloride 106 (98-107) mmol/L Carbon Dioxide 22.7 (21.0-32.0) mmol/L BUN 46 H (7.0-18.0) mg/dL Creatinine 3.0 H (0.6-1.0) mg/dL Est Cr Clr Drug Dosing 14.43 mL/min Estimated GFR (MDRD) 15.4 ml/min Glucose 114 H (74-106) mg/dL Calcium 9.2 (8.5-10.1) mg/dL Magnesium 2.0 (1.8-2.4) mg/dL Total Bilirubin 0.8 (0.2-1.0) mg/dL AST 66 H (15-37) IU/L ALT 61 (14-63) IU/L Alkaline Phosphatase 332 H (46-116) U/L C-Reactive Protein 4.90 H (0.00-0.90) mg/dL Total Protein 7.8 (6.4-8.2) g/dL Albumin 3.2 L (3.4-5.0) g/dL Globulin 4.6 H (2.6-4.0) g/dL Albumin/Globulin Ratio 0.7 L (0.9-1.6) SARS-CoV-2 RNA (LAURA) (NEGATIVE) 07/27/20 Range/Units 11:30 WBC (4.0-11.0) K/uL RBC (4.30-5.90) M/uL Hgb (12.0-16.0) g/dL Hct (36.0-46.0) % MCV (80.0-98.0) fL MCH (27.0-32.0) pg MCHC (31.0-37.0) g/dL RDW Std Deviation (28.0-62.0) fl RDW Coeff of Frank (11.0-15.0) % Plt Count (150-400) K/uL MPV (7.40-12.00) fL Neut % (Auto) (48.0-80.0) % Lymph % (Auto) (16.0-40.0) % Aurora % (Auto) (0.0-15.0) % Eos % (Auto) (0.0-7.0) % Baso % (Auto) (0.0-1.5) % Neut # (Auto) (1.4-5.7) K/uL Lymph # (Auto) (0.6-2.4) K/uL Aurora # (Auto) (0.0-0.8) K/uL Eos # (Auto) (0.0-0.7) K/uL Baso # (Auto) (0.0-0.1) K/uL Nucleated RBC % /100WBC Nucleated RBCs # K/uL Lactate (0.20-2.00) mmol/L Sodium (136-145) mmol/L Potassium (3.5-5.1) mmol/L Chloride (98-107) mmol/L Carbon Dioxide (21.0-32.0) mmol/L BUN (7.0-18.0) mg/dL Creatinine (0.6-1.0) mg/dL Est Cr Clr Drug Dosing mL/min Estimated GFR (MDRD) ml/min Glucose (74-106) mg/dL Calcium (8.5-10.1) mg/dL Magnesium (1.8-2.4) mg/dL Total Bilirubin (0.2-1.0) mg/dL AST (15-37) IU/L ALT (14-63) IU/L Alkaline Phosphatase (46-116) U/L C-Reactive Protein (0.00-0.90) mg/dL Total Protein (6.4-8.2) g/dL Albumin (3.4-5.0) g/dL Globulin (2.6-4.0) g/dL Albumin/Globulin Ratio (0.9-1.6) SARS-CoV-2 RNA (LAURA) NEGATIVE (NEGATIVE) Result Diagrams: 07/27/20 11:15 07/27/20 11:15 Sepsis Event Note - Evaluation Sepsis Screening Result: No Definite Risk - Focused Exam Vital Signs: Vital Signs Temp Pulse Resp BP BP Pulse Ox 07/27/20 12:12 48 L 18 132/44 L 98 07/27/20 11:09 95.6 F L 52 L 20 109/73 97 - Problem List (1) Acute kidney injury superimposed on CKD SNOMED Code(s): 41376109 ICD Code: N17.9 - ACUTE KIDNEY FAILURE, UNSPECIFIED; N18.9 - CHRONIC KIDNEY DISEASE, UNSPECIFIED Status: Acute Current Visit: Yes (2) Leg wound, left SNOMED Code(s): 810665310, 860440136 ICD Code: S81.802A - UNSPECIFIED OPEN WOUND, LEFT LOWER LEG, INITIAL ENCOUNTER Status: Acute Current Visit: Yes (3) Leg wound, right SNOMED Code(s): 817739730, 000658672 ICD Code: S81.801A - UNSPECIFIED OPEN WOUND, RIGHT LOWER LEG, INITIAL ENCOUNTER Status: Acute Current Visit: Yes (4) Chronic venous stasis dermatitis SNOMED Code(s): 06713963, 10552357 ICD Code: I87.2 - VENOUS INSUFFICIENCY (CHRONIC) (PERIPHERAL) Status: Acute Current Visit: Yes (5) Cellulitis SNOMED Code(s): 400026992 ICD Code: L03.90 - CELLULITIS, UNSPECIFIED Status: Acute Priority: High Current Visit: Yes Qualifiers: Site of cellulitis: extremity Site of cellulitis of extremity: lower extremity Laterality: left Qualified Code(s): L03.116 - Cellulitis of left lower limb (6) Dizziness SNOMED Code(s): 498937686, 672710617 ICD Code: R42 - DIZZINESS AND GIDDINESS Status: Acute Current Visit: No (7) Drug rash SNOMED Code(s): 41856024 ICD Code: L27.0 - GEN SKIN ERUPTION DUE TO DRUGS AND MEDS TAKEN INTERNALLY Status: Acute Current Visit: No (8) Chronic anticoagulation SNOMED Code(s): 911427469 ICD Code: Z79.01 - GROUP HOME (CURRENT) USE OF ANTICOAGULANTS Status: Chronic Priority: Medium Current Visit: No (9) Chronic kidney disease (CKD), stage III (moderate) SNOMED Code(s): 931350008 ICD Code: N18.3 - CHRONIC KIDNEY DISEASE, STAGE 3 (MODERATE) * DO NOT USE * Status: Chronic Priority: High Current Visit: No (10) History of CVA (cerebrovascular accident) SNOMED Code(s): 749821565 ICD Code: Z86.73 - PRSNL HX OF TIA (TIA), AND CEREB INFRC W/O RESID DEFICITS Status: Chronic Current Visit: Yes (11) Atrial fibrillation SNOMED Code(s): 57709202 ICD Code: I48.91 - UNSPECIFIED ATRIAL FIBRILLATION Status: Chronic Current Visit: No Qualifiers: Atrial fibrillation type: chronic (12) Lymphedema SNOMED Code(s): 562686547 ICD Code: I89.0 - LYMPHEDEMA, NOT ELSEWHERE CLASSIFIED Status: Chronic Current Visit: Yes Problem List Initiated/Reviewed/Updated: Yes Orders Last 24hrs: Active Orders 24 hr Category Date Time Status Patient Status [ADT] Routine ADT 07/27/20 13:07 Active Height and Weight [RC] DAILY Care 07/27/20 14:11 Ordered Nurse Communication: Isolation [RC] ASDIRECTED Care 07/27/20 14:15 Ordered Oxygen Therapy [RC] PRN Care 07/27/20 14:11 Ordered Up With Assistance [RC] ASDIRECTED Care 07/27/20 14:11 Ordered Up to Chair [RC] ASDIRECTED Care 07/27/20 14:11 Ordered VTE/DVT Education [RC] PER UNIT ROUTINE Care 07/27/20 14:11 Ordered Vital Signs [RC] Q4H Care 07/27/20 14:11 Ordered Consult to Wound Care Services [CONS] Routine Cons 07/27/20 14:11 Ordered OT Evaluation and Treatment [CONS] Routine Cons 07/27/20 14:11 Ordered Heart Healthy Diet [DIET] Diet 07/27/20 Lunch Ordered BASIC METABOLIC PANEL,BMP [CHEM] AM Lab 07/28/20 05:11 Ordered BASIC METABOLIC PANEL,BMP [CHEM] AM Lab 07/29/20 05:11 Ordered BASIC METABOLIC PANEL,BMP [CHEM] AM Lab 07/30/20 05:11 Ordered CBC WITH AUTO DIFF [HEME] AM Lab 07/28/20 05:11 Ordered CBC WITH AUTO DIFF [HEME] AM Lab 07/29/20 05:11 Ordered CBC WITH AUTO DIFF [HEME] AM Lab 07/30/20 05:11 Ordered CREATININE,URINE RAND [URCHEM] Stat Lab 07/27/20 13:37 Ordered CULTURE BLOOD [BC] Stat Lab 07/27/20 11:15 Received CULTURE BLOOD [BC] Stat Lab 07/27/20 11:50 Received INR,PT,PROTHROMBIN TIME [COAG] AM Lab 07/28/20 05:11 Ordered INR,PT,PROTHROMBIN TIME [COAG] AM Lab 07/29/20 05:11 Ordered INR,PT,PROTHROMBIN TIME [COAG] AM Lab 07/30/20 05:11 Ordered INR,PT,PROTHROMBIN TIME [COAG] Routine Lab 07/27/20 14:11 Ordered MAGNESIUM [CHEM] AM Lab 07/28/20 05:11 Ordered MAGNESIUM [CHEM] AM Lab 07/29/20 05:11 Ordered MAGNESIUM [CHEM] AM Lab 07/30/20 05:11 Ordered SODIUM,URINE RANDOM [URCHEM] Stat Lab 07/27/20 13:37 Ordered UA RFX YANCY AND CULT IF INDIC [URIN] Routine Lab 07/27/20 13:37 Ordered Acetaminophen [TylenoL] Med 07/27/20 14:11 Ordered 650 mg PO Q4H PRN Docusate Sodium [Colace] Med 07/27/20 14:11 Ordered 100 mg PO BID PRN Ondansetron [Zofran] Med 07/27/20 14:11 Ordered 4 mg IVPUSH Q4H PRN Pharmacy to Dose - Vancomycin Med 07/27/20 14:15 Ordered 1 dose .XX ASDIRECTED Sodium Chloride 0.9% [Saline Flush] Med 07/27/20 14:11 Ordered 2.5 ml FLUSH ASDIRECTED PRN Blood Culture x2 Reflex Set [OM.PC] Stat Oth 07/27/20 11:02 Ordered Isolation [COMM] Routine Oth 07/27/20 14:15 Ordered Saline Lock Insert [OM.PC] Routine Oth 07/27/20 14:11 Ordered Resuscitation Status Routine Resus Stat 07/27/20 14:11 Ordered Assessment/Plan Comment:: This 69-year-old female admitted with left lower leg cellulitis, LIZ on CKD, and drug rash 1. Left lower extremity cellulitis with chronic lower leg wounds -We will continue vancomycin pharmacy to dose -Encouraged elevation of extremities to lessen edema -Consult wound care -Consult OT to evaluate for lymphedema wraps - Continue dressing changes to multiple leg wounds, per orders daily 2. LIZ on CKD -Hold nephrotoxic medications -Give gentle hydration overnight and recheck in a.m. -Obtain UA as well as urine sodium and creatinine for FENA 3. Drug rash: - will monitor -Benadryl topically as needed itching 4. Atrial fibrillation/HTN -Check INR reports that previously and recently was elevated -Continue amiodarone 200 mg twice daily and metoprolol twice daily 5. lymphedema -Consult OT -Encourage elevation of extremities -Hold Lasix for now due to LIZ VTE prophylaxis: Coumadin CODE STATUS: full code Dispo: 2 to 3 days
[2020-07-27] MEDS ORDERED: hydrOXYzine HCl 25 MG Tab PO PRN (15:53)
[2020-07-27] MEDS: Sodium Chloride 0.9% 1,000 ML IV SCH (15:54)
[2020-07-27] MEDS: Ferrous Sulfate 325 MG Tab PO SCH (16:41)
[2020-07-27] MEDS: Amiodarone 200 MG Tab PO SCH ×2 (16:41→20:23)
[2020-07-27] MEDS: Nystatin Topical Powder 15 GM Bottle TOP SCH ×2 (16:43→21:51)
[2020-07-27] MEDS ORDERED: Warfarin 2 MG Tab PO ONE (18:15)
--- NOTE | 2020-07-27 19:30 | PCM.SN.2 ---
- Free Text/Narrative Note: Called by RN to start IV in 208 for IV antibiotics. 22g angiocath 2nd attempt right lower arm. Good blood return and flushes easily x 3. Secured with tegaderm and tape.
[2020-07-27] MEDS ORDERED: Metoprolol Tartrate 25 MG Tab PO SCH (21:00)
[2020-07-28] MEDS: Sodium Chloride 0.9% 1,000 ML IV SCH ×2 (05:11→08:50)
[2020-07-28] MEDS: Levothyroxine 75 MCG Tab PO SCH (06:32)
[2020-07-28] MEDS: Nystatin Topical Powder 15 GM Bottle TOP SCH ×3 (06:32→22:11)
[2020-07-28 06:49] LABS: CARBON DIOXIDE,CO2 23.1 mmol/L (21.0-32.0); POTASSIUM,K 4.6 mmol/L (3.5-5.1)
--- NOTE | 2020-07-28 08:06 | PCM.PN ---
- General Info Date of Service: 07/28/20 Admission Dx/Problem (Free Text): Admission Diagnosis/Problem Admission Diagnosis/Problem Cellulitis Subjective Update: Feeling somewhat improved today. Denies any chest pain shortness of breath. Does report some intermittent dizziness. Heart rate is down in the higher 40s. Reports this is not normal typically heart rate is in the 60s at home. Denies any headache. Reports legs feel improved today no significant pain. Some serous drainage noted to right medial knee skin abrasion. She is up in the chair eating breakfast. Functional Status: Reports: Pain Controlled, Tolerating Diet, Ambulating, Urinating - Review of Systems General: Reports: No Symptoms. Denies: Weakness, Fatigue, Malaise Pulmonary: Reports: No Symptoms. Denies: Shortness of Breath Cardiovascular: Reports: Lightheadedness (Dizziness). Denies: Chest Pain Gastrointestinal: Reports: No Symptoms. Denies: Abdominal Pain, Nausea, Vomiting 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: Reports: No Symptoms. Denies: Dysuria, Frequency, Burning Musculoskeletal: Reports: No Symptoms Skin: Reports: No Symptoms Neurological: Reports: No Symptoms Psychiatric: Reports: No Symptoms - Patient Data Vitals - Most Recent: Last Vital Signs Temp 97.3 F 07/28/20 04:22 Pulse 46 L 07/28/20 04:22 Resp 14 07/28/20 04:22 BP 116/74 07/28/20 04:22 Pulse Ox 94 L 07/28/20 04:22 Weight - Most Recent: 111.13 kg I&O - Last 24 Hours: Intake & Output 07/27/20 07/28/20 07/28/20 22:59 06:59 14:59 Intake Total 300 Balance 300 Lab Results Last 24 Hours: Laboratory Results - last 24 hr 07/27/20 07/27/20 07/27/20 Range/Units 11:15 11:15 11:15 WBC 8.20 (4.0-11.0) K/uL RBC 3.85 L (4.30-5.90) M/uL Hgb 11.1 L (12.0-16.0) g/dL Hct 35.5 L (36.0-46.0) % MCV 92.2 (80.0-98.0) fL MCH 28.8 (27.0-32.0) pg MCHC 31.3 (31.0-37.0) g/dL RDW Std Deviation 58.8 (28.0-62.0) fl RDW Coeff of Frank 18 H (11.0-15.0) % Plt Count 345 (150-400) K/uL MPV 12.90 H (7.40-12.00) fL Neut % (Auto) 64.1 (48.0-80.0) % Lymph % (Auto) 21.1 (16.0-40.0) % King % (Auto) 8.4 (0.0-15.0) % Eos % (Auto) 5.9 (0.0-7.0) % Baso % (Auto) 0.5 (0.0-1.5) % Neut # (Auto) 5.3 (1.4-5.7) K/uL Lymph # (Auto) 1.7 (0.6-2.4) K/uL King # (Auto) 0.7 (0.0-0.8) K/uL Eos # (Auto) 0.5 (0.0-0.7) K/uL Baso # (Auto) 0.0 (0.0-0.1) K/uL Nucleated RBC % 0.0 /100WBC Nucleated RBCs # 0 K/uL INR Lactate 1.2 (0.20-2.00) mmol/L Sodium 141 (136-145) mmol/L Potassium 4.3 (3.5-5.1) mmol/L Chloride 106 (98-107) mmol/L Carbon Dioxide 22.7 (21.0-32.0) mmol/L BUN 46 H (7.0-18.0) mg/dL Creatinine 3.0 H (0.6-1.0) mg/dL Est Cr Clr Drug Dosing 14.43 mL/min Estimated GFR (MDRD) 15.4 ml/min Glucose 114 H (74-106) mg/dL Calcium 9.2 (8.5-10.1) mg/dL Magnesium 2.0 (1.8-2.4) mg/dL Total Bilirubin 0.8 (0.2-1.0) mg/dL AST 66 H (15-37) IU/L ALT 61 (14-63) IU/L Alkaline Phosphatase 332 H (46-116) U/L C-Reactive Protein 4.90 H (0.00-0.90) mg/dL Total Protein 7.8 (6.4-8.2) g/dL Albumin 3.2 L (3.4-5.0) g/dL Globulin 4.6 H (2.6-4.0) g/dL Albumin/Globulin Ratio 0.7 L (0.9-1.6) SARS-CoV-2 RNA (LAURA) (NEGATIVE) 07/27/20 07/27/20 07/28/20 Range/Units 11:15 11:30 06:18 WBC 5.46 (4.0-11.0) K/uL RBC 3.14 L (4.30-5.90) M/uL Hgb 9.0 L (12.0-16.0) g/dL Hct 29.4 L (36.0-46.0) % MCV 93.6 (80.0-98.0) fL MCH 28.7 (27.0-32.0) pg MCHC 30.6 L (31.0-37.0) g/dL RDW Std Deviation 59.1 (28.0-62.0) fl RDW Coeff of Frank 18 H (11.0-15.0) % Plt Count 254 (150-400) K/uL MPV 12.80 H (7.40-12.00) fL Neut % (Auto) 61.7 (48.0-80.0) % Lymph % (Auto) 21.4 (16.0-40.0) % King % (Auto) 10.3 (0.0-15.0) % Eos % (Auto) 6.2 (0.0-7.0) % Baso % (Auto) 0.4 (0.0-1.5) % Neut # (Auto) 3.4 (1.4-5.7) K/uL Lymph # (Auto) 1.2 (0.6-2.4) K/uL King # (Auto) 0.6 (0.0-0.8) K/uL Eos # (Auto) 0.3 (0.0-0.7) K/uL Baso # (Auto) 0.0 (0.0-0.1) K/uL Nucleated RBC % 0.0 /100WBC Nucleated RBCs # 0 K/uL INR 3.10 Lactate (0.20-2.00) mmol/L Sodium (136-145) mmol/L Potassium (3.5-5.1) mmol/L Chloride (98-107) mmol/L Carbon Dioxide (21.0-32.0) mmol/L BUN (7.0-18.0) mg/dL Creatinine (0.6-1.0) mg/dL Est Cr Clr Drug Dosing mL/min Estimated GFR (MDRD) ml/min Glucose (74-106) mg/dL Calcium (8.5-10.1) mg/dL Magnesium (1.8-2.4) mg/dL Total Bilirubin (0.2-1.0) mg/dL AST (15-37) IU/L ALT (14-63) IU/L Alkaline Phosphatase (46-116) U/L C-Reactive Protein (0.00-0.90) mg/dL Total Protein (6.4-8.2) g/dL Albumin (3.4-5.0) g/dL Globulin (2.6-4.0) g/dL Albumin/Globulin Ratio (0.9-1.6) SARS-CoV-2 RNA (LAURA) NEGATIVE (NEGATIVE) 07/28/20 07/28/20 Range/Units 06:18 06:18 WBC (4.0-11.0) K/uL RBC (4.30-5.90) M/uL Hgb (12.0-16.0) g/dL Hct (36.0-46.0) % MCV (80.0-98.0) fL MCH (27.0-32.0) pg MCHC (31.0-37.0) g/dL RDW Std Deviation (28.0-62.0) fl RDW Coeff of Frank (11.0-15.0) % Plt Count (150-400) K/uL MPV (7.40-12.00) fL Neut % (Auto) (48.0-80.0) % Lymph % (Auto) (16.0-40.0) % King % (Auto) (0.0-15.0) % Eos % (Auto) (0.0-7.0) % Baso % (Auto) (0.0-1.5) % Neut # (Auto) (1.4-5.7) K/uL Lymph # (Auto) (0.6-2.4) K/uL King # (Auto) (0.0-0.8) K/uL Eos # (Auto) (0.0-0.7) K/uL Baso # (Auto) (0.0-0.1) K/uL Nucleated RBC % /100WBC Nucleated RBCs # K/uL INR 3.55 Lactate (0.20-2.00) mmol/L Sodium 143 (136-145) mmol/L Potassium 4.6 (3.5-5.1) mmol/L Chloride 109 H (98-107) mmol/L Carbon Dioxide 23.1 (21.0-32.0) mmol/L BUN 44 H (7.0-18.0) mg/dL Creatinine 2.4 H (0.6-1.0) mg/dL Est Cr Clr Drug Dosing 18.04 mL/min Estimated GFR (MDRD) 20.0 ml/min Glucose 73 L (74-106) mg/dL Calcium 8.5 (8.5-10.1) mg/dL Magnesium 1.9 (1.8-2.4) mg/dL Total Bilirubin (0.2-1.0) mg/dL AST (15-37) IU/L ALT (14-63) IU/L Alkaline Phosphatase (46-116) U/L C-Reactive Protein (0.00-0.90) mg/dL Total Protein (6.4-8.2) g/dL Albumin (3.4-5.0) g/dL Globulin (2.6-4.0) g/dL Albumin/Globulin Ratio (0.9-1.6) SARS-CoV-2 RNA (LAURA) (NEGATIVE) Med Orders - Current: Current Medications Acetaminophen (Tylenol) 650 mg PO Q4H PRN PRN Reason: Pain (Mild 1-3)/fever Atorvastatin Calcium (Lipitor) 40 mg PO DAILY [facility] Docusate Sodium (Colace) 100 mg PO BID PRN PRN Reason: Constipation Ferrous Sulfate (Ferrous Sulfate) 325 mg PO BIDMEALS [facility] Last Admin: 07/27/20 16:41 Dose: 325 mg Documented by: Hydroxyzine HCl (Atarax) 25 mg PO TID PRN PRN Reason: Itching Last Admin: 07/27/20 16:40 Dose: 25 mg Documented by: Sodium Chloride (Normal Saline) 1,000 mls @ 75 mls/hr IV Q13H [facility] Last Admin: 07/28/20 05:11 Dose: Not Given Documented by: Vancomycin HCl 1.5 gm/ Premix 300 mls @ 150 mls/hr IV Q24H [facility] Levothyroxine Sodium (Levothyroxine) 75 mcg PO ACBREAKFAST [facility] Last Admin: 07/28/20 06:32 Dose: 75 mcg Documented by: Multivitamins/Minerals/Vitamin C (Tab-A-Deric) 1 tab PO DAILY [facility] Nystatin (Nystop) 0 gm TOP TID [facility] Last Admin: 07/28/20 06:32 Dose: 1 applic Documented by: Ondansetron HCl (Zofran) 4 mg IVPUSH Q4H PRN PRN Reason: Nausea Sertraline HCl (Zoloft) 50 mg PO DAILY [facility] Sodium Chloride (Saline Flush) 2.5 ml FLUSH ASDIRECTED PRN PRN Reason: Keep Vein Open Tramadol HCl (Ultram) 50 mg PO Q8H PRN PRN Reason: Pain Vancomycin HCl (Pharmacy To Dose - Vancomycin) 1 dose .XX ASDIRECTED [facility] Warfarin Sodium (Coumadin Ask) 1 each PO DAILY@1400 [facility] Zinc Acetate/Diphenhydramine (Benadryl Itch Stopping Crm) 0 gm TOP ASDIRECTED PRN PRN Reason: Itching Discontinued Medications Amiodarone HCl (Cordarone) 200 mg PO BID [facility] Last Admin: 07/27/20 20:23 Dose: Not Given Documented by: Vancomycin HCl 1.5 gm/ Premix 300 mls @ 300 mls/hr IV ONETIME ONE Stop: 07/27/20 13:06 Last Admin: 07/27/20 13:42 Dose: 300 mls/hr Documented by: Metoprolol Tartrate (Lopressor) 100 mg PO BID [facility] Last Admin: 07/27/20 22:36 Dose: Not Given Documented by: Warfarin Sodium (Coumadin) 2 mg PO DAILY@1815 ONE Stop: 07/27/20 18:16 Last Admin: 07/27/20 19:02 Dose: 2 mg Documented by: - Exam Quality Assessment: DVT Prophylaxis. No: Supplemental Oxygen General: Alert, Oriented, Cooperative, No Acute Distress Lungs: Clear to Auscultation, Normal Respiratory Effort Cardiovascular: Regular Rate, Regular Rhythm GI/Abdominal Exam: Normal Bowel Sounds, Soft, Non-Tender Extremities: Normal Range of Motion, Pedal Edema (Improved especially to left lower extremity continues to have significant lymphedema to lower extremities as well as upper extremities. IV infiltration noted to left AC with swelling no pain.) Wound/Incisions: Erythema (Erythema improved to left lower extremity mild weeping noted. Wound to right posterior calf continues with wet-to-dry dressing. Some oozing serosanguineous drainage to right medial knee skin abrasion noted this morning.) Neurological: No New Focal Deficit Psy/Mental Status: Alert, Normal Affect, Normal Mood Sepsis Event Note - Evaluation Sepsis Screening Result: No Definite Risk - Focused Exam Vital Signs: Vital Signs Temp Pulse Pulse Resp BP Pulse Ox 07/28/20 04:22 97.3 F 46 L 14 116/74 94 L 07/27/20 23:59 98.5 F 49 L 16 105/51 L 96 07/27/20 22:36 48 L 07/27/20 22:16 48 L 127/56 L - Problem List & Annotations (1) Acute kidney injury superimposed on CKD SNOMED Code(s): 13445171 Code(s): N17.9 - ACUTE KIDNEY FAILURE, UNSPECIFIED; N18.9 - CHRONIC KIDNEY DISEASE, UNSPECIFIED Status: Acute Current Visit: Yes (2) Leg wound, left SNOMED Code(s): 788158586, 807677962 Code(s): S81.802A - UNSPECIFIED OPEN WOUND, LEFT LOWER LEG, INITIAL ENCOUNTER Status: Acute Current Visit: Yes (3) Leg wound, right SNOMED Code(s): 943101536, 677741513 Code(s): S81.801A - UNSPECIFIED OPEN WOUND, RIGHT LOWER LEG, INITIAL ENCOUNTER Status: Acute Current Visit: Yes (4) Chronic venous stasis dermatitis SNOMED Code(s): 75200524, 94748654 Code(s): I87.2 - VENOUS INSUFFICIENCY (CHRONIC) (PERIPHERAL) Status: Acute Current Visit: Yes (5) Cellulitis SNOMED Code(s): 900206493 Code(s): L03.90 - CELLULITIS, UNSPECIFIED Status: Acute Priority: High Current Visit: Yes Qualifiers: Site of cellulitis: extremity Site of cellulitis of extremity: lower extremity Laterality: left Qualified Code(s): L03.116 - Cellulitis of left lower limb (6) Dizziness SNOMED Code(s): 024895833, 211251460 Code(s): R42 - DIZZINESS AND GIDDINESS Status: Acute Current Visit: No (7) Drug rash SNOMED Code(s): 39433726 Code(s): L27.0 - GEN SKIN ERUPTION DUE TO DRUGS AND MEDS TAKEN INTERNALLY Status: Acute Current Visit: No (8) Chronic anticoagulation SNOMED Code(s): 084350354 Code(s): Z79.01 - USP (CURRENT) USE OF ANTICOAGULANTS Status: Chronic Priority: Medium Current Visit: No (9) Chronic kidney disease (CKD), stage III (moderate) SNOMED Code(s): 664232662 Code(s): N18.3 - CHRONIC KIDNEY DISEASE, STAGE 3 (MODERATE) * DO NOT USE * Status: Chronic Priority: High Current Visit: No (10) History of CVA (cerebrovascular accident) SNOMED Code(s): 125643173 Code(s): Z86.73 - PRSNL HX OF TIA (TIA), AND CEREB INFRC W/O RESID DEFICITS Status: Chronic Current Visit: Yes (11) Atrial fibrillation SNOMED Code(s): 82980937 Code(s): I48.91 - UNSPECIFIED ATRIAL FIBRILLATION Status: Chronic Current Visit: No Qualifiers: Atrial fibrillation type: chronic (12) Lymphedema SNOMED Code(s): 114542701 Code(s): I89.0 - LYMPHEDEMA, NOT ELSEWHERE CLASSIFIED Status: Chronic Current Visit: Yes - Problem List Review Problem List Initiated/Reviewed/Updated: Yes - My Orders Last 24 Hours: My Active Orders 07/27/20 Lunch Heart Healthy Diet [DIET] 07/27/20 13:37 CREATININE,URINE RAND [URCHEM] Stat SODIUM,URINE RANDOM [URCHEM] Stat UA RFX YANCY AND CULT IF INDIC [URIN] Routine 07/27/20 14:11 Height and Weight [RC] DAILY Oxygen Therapy [RC] PRN Up With Assistance [RC] ASDIRECTED Up to Chair [RC] ASDIRECTED VTE/DVT Education [RC] PER UNIT ROUTINE Vital Signs [RC] Q4H Consult to Wound Care Services [CONS] Routine OT Evaluation and Treatment [CONS] Routine Acetaminophen [TylenoL] 650 mg PO Q4H PRN Docusate Sodium [Colace] 100 mg PO BID PRN Ondansetron [Zofran] 4 mg IVPUSH Q4H PRN Sodium Chloride 0.9% [Saline Flush] 2.5 ml FLUSH ASDIRECTED PRN Saline Lock Insert [OM.PC] Routine Resuscitation Status Routine 07/27/20 14:15 Pharmacy to Dose - Vancomycin 1 dose .XX ASDIRECTED Isolation [COMM] Routine 07/27/20 14:57 Nystatin [Nystop] See Dose Instructions TOP TID 07/27/20 15:00 Sodium Chloride 0.9% [Normal Saline] 1,000 ml IV Q13H 07/27/20 15:53 hydrOXYzine HCL [Atarax] 25 mg PO TID PRN traMADol [Ultram] 50 mg PO Q8H PRN 07/27/20 16:00 Wound Care [RC] DAILY 07/27/20 16:01 Intake and Output Strict [RC] Q12H 07/27/20 17:00 Ferrous Sulfate 325 mg PO BIDMEALS 07/27/20 17:42 diphenhydrAMINE/Zinc Acetate [Benadryl Itch Stopping Crm] See Dose Instructions TOP ASDIRECTED PRN 07/28/20 07:30 Levothyroxine 75 mcg PO ACBREAKFAST 07/28/20 09:00 Multivitamins [Tab-A-Deric] 1 tab PO DAILY Sertraline [Zoloft] 50 mg PO DAILY atorvaSTATin [Lipitor] 40 mg PO DAILY 07/28/20 14:00 VANCOmycin/Water for INJ (PEG) [VANCOmycin 1.5 GM/300 ML Premix] 1.5 gm Premix Bag 1 bag IV Q24H Warfarin Dosing [Coumadin Ask] 1 each PO DAILY@1400 07/29/20 05:11 BASIC METABOLIC PANEL,BMP [CHEM] AM CBC WITH AUTO DIFF [HEME] AM INR,PT,PROTHROMBIN TIME [COAG] AM MAGNESIUM [CHEM] AM 07/30/20 05:11 BASIC METABOLIC PANEL,BMP [CHEM] AM CBC WITH AUTO DIFF [HEME] AM INR,PT,PROTHROMBIN TIME [COAG] AM MAGNESIUM [CHEM] AM - Plan Plan:: This 69-year-old female admitted with left lower leg cellulitis, LIZ on CKD, and drug rash 1. Left lower extremity cellulitis with chronic lower leg wounds -We will continue vancomycin pharmacy to dose -Encouraged elevation of extremities to lessen edema -Consult wound care -Consult OT to evaluate for lymphedema wraps - Continue dressing changes to multiple leg wounds, per orders daily 2. LIZ on CKD -Hold nephrotoxic medications -Stop normal saline at 75. Renal function improved to near baseline -Monitor daily -Obtain UA as well as urine sodium and creatinine for FENA we will place straight cath order to obtain sample this morning. 3. Drug rash: - will monitor -Benadryl topically as needed itching 4. Atrial fibrillation/HTN -C INR 3.5 this morning pharmacy to dose Coumadin likely holding today. -Continue amiodarone 200 mg twice daily -Bradycardia noted will place on telemetry. -Hold metoprolol 5. lymphedema -Consult OT -Encourage elevation of extremities -Hold Lasix for now due to LIZ VTE prophylaxis: Coumadin CODE STATUS: full code Dispo: 2 to 3 days
[2020-07-28] MEDS: Multivitamin Tab PO SCH (09:18)
[2020-07-28] MEDS: Sertraline 50 MG Tab PO SCH (09:18)
[2020-07-28] MEDS: Ferrous Sulfate 325 MG Tab PO SCH ×2 (09:18→17:02)
[2020-07-28] MEDS: atorvaSTATin 40 MG Tab PO SCH (09:19)
[2020-07-28] MEDS: Amiodarone 200 MG Tab PO SCH ×2 (11:55→22:11)
[2020-07-29] MEDS: Levothyroxine 75 MCG Tab PO SCH (06:34)
[2020-07-29] MEDS: Nystatin Topical Powder 15 GM Bottle TOP SCH ×3 (06:35→23:00)
[2020-07-29 07:16] LABS: CARBON DIOXIDE,CO2 19.9 mmol/L (21.0-32.0); POTASSIUM,K 4.8 mmol/L (3.5-5.1)
[2020-07-29] MEDS: Ferrous Sulfate 325 MG Tab PO SCH ×2 (08:50→17:49)
[2020-07-29] MEDS: Multivitamin Tab PO SCH (08:51)
[2020-07-29] MEDS: atorvaSTATin 40 MG Tab PO SCH (08:51)
[2020-07-29] MEDS: Sertraline 50 MG Tab PO SCH (08:52)
[2020-07-29] MEDS: traMADol 50 MG Tab PO PRN (08:54)
--- NOTE | 2020-07-29 11:19 | PCM.PN ---
- General Info Date of Service: 07/29/20 Admission Dx/Problem (Free Text): Admission Diagnosis/Problem Admission Diagnosis/Problem Cellulitis Subjective Update: c/o pain in her right leg, Denies any chest pain shortness of breath. - Review of Systems General: Reports: Weakness. Denies: Fever, Fatigue, Malaise Pulmonary: Denies: Shortness of Breath, Pleuritic Chest Pain Cardiovascular: Denies: Chest Pain, Palpitations, Dyspnea on Exertion Gastrointestinal: Denies: Abdominal Pain, Constipation, Decreased Appetite 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: Denies: Dysuria, Frequency, Burning Musculoskeletal: Reports: Leg Pain, Foot Pain. Denies: Neck Pain, Shoulder Pain Skin: Denies: Cyanosis, Jaundice, Mottled, Pallor, Diaphoresis - Patient Data Vitals - Most Recent: Last Vital Signs Temp 36.5 C 07/29/20 08:07 Pulse 52 L 07/29/20 08:07 Resp 16 07/29/20 08:07 BP 135/59 L 07/29/20 08:07 Pulse Ox 94 L 07/29/20 08:07 Weight - Most Recent: 104.462 kg I&O - Last 24 Hours: Intake & Output 07/28/20 07/29/20 07/29/20 22:59 06:59 14:59 Intake Total 1050 500 Output Total 400 Balance 1050 100 Lab Results Last 24 Hours: Laboratory Results - last 24 hr 07/28/20 07/28/20 07/29/20 Range/Units 19:30 19:30 06:22 WBC 7.17 (4.0-11.0) K/uL RBC 3.17 L (4.30-5.90) M/uL Hgb 9.3 L (12.0-16.0) g/dL Hct 29.7 L (36.0-46.0) % MCV 93.7 (80.0-98.0) fL MCH 29.3 (27.0-32.0) pg MCHC 31.3 (31.0-37.0) g/dL RDW Std Deviation 61.1 (28.0-62.0) fl RDW Coeff of Frank 18 H (11.0-15.0) % Plt Count 263 (150-400) K/uL MPV 12.70 H (7.40-12.00) fL Neut % (Auto) 59.8 (48.0-80.0) % Lymph % (Auto) 23.8 (16.0-40.0) % [place] % (Auto) 9.5 (0.0-15.0) % Eos % (Auto) 6.6 (0.0-7.0) % Baso % (Auto) 0.3 (0.0-1.5) % Neut # (Auto) 4.3 (1.4-5.7) K/uL Lymph # (Auto) 1.7 (0.6-2.4) K/uL [place] # (Auto) 0.7 (0.0-0.8) K/uL Eos # (Auto) 0.5 (0.0-0.7) K/uL Baso # (Auto) 0.0 (0.0-0.1) K/uL Nucleated RBC % 0.0 /100WBC Nucleated RBCs # 0 K/uL INR Sodium (136-145) mmol/L Potassium (3.5-5.1) mmol/L Chloride (98-107) mmol/L Carbon Dioxide (21.0-32.0) mmol/L BUN (7.0-18.0) mg/dL Creatinine (0.6-1.0) mg/dL Est Cr Clr Drug Dosing mL/min Estimated GFR (MDRD) ml/min Glucose (74-106) mg/dL Calcium (8.5-10.1) mg/dL Magnesium (1.8-2.4) mg/dL Urine Color YELLOW Urine Appearance CLEAR Urine pH 6.0 (5.0-8.0) Ur Specific [place] 1.025 (1.001-1.035) Urine Protein NEGATIVE (NEGATIVE) mg/dL Urine Glucose (UA) NEGATIVE (NEGATIVE) mg/dL Urine Ketones NEGATIVE (NEGATIVE) mg/dL Urine Occult Blood NEGATIVE (NEGATIVE) Urine Nitrite NEGATIVE (NEGATIVE) Urine Bilirubin NEGATIVE (NEGATIVE) Urine Urobilinogen 0.2 (<2.0) EU/dL Ur Leukocyte Esterase NEGATIVE (NEGATIVE) Ur Random Creatinine 95.1 mg/dL Ur Random Sodium 62.0 (40.0-220.0) mmol/L 07/29/20 07/29/20 Range/Units 06:22 06:22 WBC (4.0-11.0) K/uL RBC (4.30-5.90) M/uL Hgb (12.0-16.0) g/dL Hct (36.0-46.0) % MCV (80.0-98.0) fL MCH (27.0-32.0) pg MCHC (31.0-37.0) g/dL RDW Std Deviation (28.0-62.0) fl RDW Coeff of Frank (11.0-15.0) % Plt Count (150-400) K/uL MPV (7.40-12.00) fL Neut % (Auto) (48.0-80.0) % Lymph % (Auto) (16.0-40.0) % [place] % (Auto) (0.0-15.0) % Eos % (Auto) (0.0-7.0) % Baso % (Auto) (0.0-1.5) % Neut # (Auto) (1.4-5.7) K/uL Lymph # (Auto) (0.6-2.4) K/uL [place] # (Auto) (0.0-0.8) K/uL Eos # (Auto) (0.0-0.7) K/uL Baso # (Auto) (0.0-0.1) K/uL Nucleated RBC % /100WBC Nucleated RBCs # K/uL INR 3.81 Sodium 141 (136-145) mmol/L Potassium 4.8 (3.5-5.1) mmol/L Chloride 111 H (98-107) mmol/L Carbon Dioxide 19.9 L (21.0-32.0) mmol/L BUN 48 H (7.0-18.0) mg/dL Creatinine 2.2 H (0.6-1.0) mg/dL Est Cr Clr Drug Dosing 19.68 mL/min Estimated GFR (MDRD) 22.1 ml/min Glucose 75 (74-106) mg/dL Calcium 8.7 (8.5-10.1) mg/dL Magnesium 2.0 (1.8-2.4) mg/dL Urine Color Urine Appearance Urine pH (5.0-8.0) Ur Specific [place] (1.001-1.035) Urine Protein (NEGATIVE) mg/dL Urine Glucose (UA) (NEGATIVE) mg/dL Urine Ketones (NEGATIVE) mg/dL Urine Occult Blood (NEGATIVE) Urine Nitrite (NEGATIVE) Urine Bilirubin (NEGATIVE) Urine Urobilinogen (<2.0) EU/dL Ur Leukocyte Esterase (NEGATIVE) Ur Random Creatinine mg/dL Ur Random Sodium (40.0-220.0) mmol/L Edgardo Results Last 24 Hours: Microbiology 07/27/20 11:50 Aerobic Blood Culture - Preliminary Blood - Venous - Lab Draw NO GROWTH AFTER 1 DAY Anaerobic Blood Culture - Preliminary NO GROWTH AFTER 1 DAY 07/27/20 11:15 Aerobic Blood Culture - Preliminary Blood - Venous NO GROWTH AFTER 1 DAY Anaerobic Blood Culture - Preliminary NO GROWTH AFTER 1 DAY Med Orders - Current: Current Medications Acetaminophen (Tylenol) 650 mg PO Q4H PRN PRN Reason: Pain (Mild 1-3)/fever Last Admin: 07/29/20 04:00 Dose: 650 mg Documented by: Amiodarone HCl (Cordarone) 200 mg PO BID [facility] Last Admin: 07/28/20 22:11 Dose: Not Given Documented by: Atorvastatin Calcium (Lipitor) 40 mg PO DAILY [facility] Last Admin: 07/29/20 08:51 Dose: 40 mg Documented by: Docusate Sodium (Colace) 100 mg PO BID PRN PRN Reason: Constipation Ferrous Sulfate (Ferrous Sulfate) 325 mg PO BIDMEALS [facility] Last Admin: 07/29/20 08:50 Dose: 325 mg Documented by: Hydroxyzine HCl (Atarax) 25 mg PO TID PRN PRN Reason: Itching Last Admin: 07/27/20 16:40 Dose: 25 mg Documented by: Vancomycin HCl 1.5 gm/ Premix 300 mls @ 150 mls/hr IV Q24H [facility] Last Admin: 07/28/20 14:27 Dose: 150 mls/hr Documented by: Levothyroxine Sodium (Levothyroxine) 75 mcg PO ACBREAKFAST [facility] Last Admin: 07/29/20 06:34 Dose: 75 mcg Documented by: Multivitamins/Minerals/Vitamin C (Tab-A-Deric) 1 tab PO DAILY [facility] Last Admin: 07/29/20 08:51 Dose: 1 tab Documented by: Nystatin (Nystop) 0 gm TOP TID [facility] Last Admin: 07/29/20 06:35 Dose: 1 applic Documented by: Ondansetron HCl (Zofran) 4 mg IVPUSH Q4H PRN PRN Reason: Nausea Sertraline HCl (Zoloft) 50 mg PO DAILY [facility] Last Admin: 07/29/20 08:52 Dose: 50 mg Documented by: Sodium Chloride (Saline Flush) 2.5 ml FLUSH ASDIRECTED PRN PRN Reason: Keep Vein Open Tramadol HCl (Ultram) 50 mg PO Q8H PRN PRN Reason: Pain Last Admin: 07/29/20 08:54 Dose: 50 mg Documented by: Vancomycin HCl (Pharmacy To Dose - Vancomycin) 1 dose .XX ASDIRECTED [facility] Warfarin Sodium (Coumadin Ask) 1 each PO DAILY@1400 [facility] Last Admin: 07/28/20 13:14 Dose: Not Given Documented by: Zinc Acetate/Diphenhydramine (Benadryl Itch Stopping Crm) 0 gm TOP ASDIRECTED PRN PRN Reason: Itching Discontinued Medications Amiodarone HCl (Cordarone) 200 mg PO BID [facility] Last Admin: 07/27/20 20:23 Dose: Not Given Documented by: Vancomycin HCl 1.5 gm/ Premix 300 mls @ 300 mls/hr IV ONETIME ONE Stop: 07/27/20 13:06 Last Admin: 07/27/20 13:42 Dose: 300 mls/hr Documented by: Sodium Chloride (Normal Saline) 1,000 mls @ 75 mls/hr IV Q13H [facility] Last Admin: 07/28/20 08:50 Dose: 75 mls/hr Documented by: Metoprolol Tartrate (Lopressor) 100 mg PO BID [facility] Last Admin: 07/27/20 22:36 Dose: Not Given Documented by: Warfarin Sodium (Coumadin) 2 mg PO DAILY@1815 ONE Stop: 07/27/20 18:16 Last Admin: 07/27/20 19:02 Dose: 2 mg Documented by: - Exam General: Alert, Oriented Lungs: Clear to Auscultation, Normal Respiratory Effort GI/Abdominal Exam: Normal Bowel Sounds, Soft, Non-Tender Extremities: Leg Pain, Limited Range of Motion, Increased Warmth, Redness Peripheral Pulses: 3+: Dorsalis Pedis (L), Dorsalis Pedis (R) Skin: Warm, Rash Wound/Incisions: Healing Well, Drainage, Erythema, Erythema Improving Sepsis Event Note - Evaluation Sepsis Screening Result: No Definite Risk - Focused Exam Vital Signs: Vital Signs Temp Pulse Resp BP BP Pulse Ox 07/29/20 08:07 36.5 C 52 L 16 135/59 L 94 L 07/29/20 04:23 36.1 C 50 L 17 109/49 L 94 L 07/28/20 23:59 36.1 C 46 L 16 116/58 L 97 - Problem List & Annotations (1) Acute kidney injury superimposed on CKD SNOMED Code(s): 58853457 Code(s): N17.9 - ACUTE KIDNEY FAILURE, UNSPECIFIED; N18.9 - CHRONIC KIDNEY DISEASE, UNSPECIFIED Status: Acute Current Visit: Yes (2) Cellulitis SNOMED Code(s): 989006238 Code(s): L03.90 - CELLULITIS, UNSPECIFIED Status: Acute Priority: High Current Visit: Yes Qualifiers: Site of cellulitis: extremity Site of cellulitis of extremity: lower extremity Laterality: left Qualified Code(s): L03.116 - Cellulitis of left lower limb (3) Chronic venous stasis dermatitis SNOMED Code(s): 63841754, 99025965 Code(s): I87.2 - VENOUS INSUFFICIENCY (CHRONIC) (PERIPHERAL) Status: Acute Current Visit: Yes (4) History of CVA (cerebrovascular accident) SNOMED Code(s): 341104935 Code(s): Z86.73 - PRSNL HX OF TIA (TIA), AND CEREB INFRC W/O RESID DEFICITS Status: Chronic Current Visit: Yes (5) Lymphedema SNOMED Code(s): 006564416 Code(s): I89.0 - LYMPHEDEMA, NOT ELSEWHERE CLASSIFIED Status: Chronic Current Visit: Yes (6) History of atrial fibrillation SNOMED Code(s): 226151907 Code(s): Z86.79 - PERSONAL HISTORY OF OTHER DISEASES OF THE CIRCULATORY SYSTEM Status: Acute Current Visit: No (7) Weakness SNOMED Code(s): 27792605 Code(s): R53.1 - WEAKNESS Status: Acute Current Visit: No - Problem List Review Problem List Initiated/Reviewed/Updated: Yes - Plan Plan:: This 69-year-old female admitted with left lower leg cellulitis, LIZ on CKD, and drug rash 1. Left lower extremity cellulitis with chronic lower leg wounds -We will continue vancomycin pharmacy to dose -Encouraged elevation of extremities to lessen edema -Consult wound care -Consult OT to evaluate for lymphedema wraps - Continue dressing changes to multiple leg wounds, per orders daily 2. LIZ on CKD -Hold nephrotoxic medications -Stop normal saline at 75. Renal function improved to near baseline -Monitor daily -Obtain UA as well as urine sodium and creatinine for FENA we will place straight cath order to obtain sample this morning. 3. Drug rash: - will monitor -Benadryl topically as needed itching 4. Atrial fibrillation/HTN -C INR 3.5 this morning pharmacy to dose Coumadin. -decrease dose of amiodarone -Bradycardia noted will place on telemetry. -Hold metoprolol 5. lymphedema -Consult OT -Encourage elevation of extremities -Hold Lasix for now due to LIZ VTE prophylaxis: Coumadin CODE STATUS: full code Dispo: 2 to 3 days
[2020-07-29] MEDS: Amiodarone 200 MG Tab PO SCH (11:45)
--- NOTE | 2020-07-29 12:05 | CR ---
INDICATION: Cellulitis. TECHNIQUE: Two views of the left tibia and fibula. COMPARISON: None. FINDINGS: Generalized soft tissue swelling. No soft tissue gas. No erosive change or periosteal reaction. Osteoporosis. Advanced osteoarthritis at the knee with lateral translation of the tibia with respect to the femur. IMPRESSION: 1. Cellulitis. No evidence of osteomyelitis. 2. Osteoporosis. 3. Advanced osteoarthritis at the knee with lateral translation of the tibia with respect to the femur. Dictated by Troy Pérez MD @ Jul 29 2020 12:00PM Signed by Dr. Troy Pérez @ Jul 29 2020 12:02PM
[2020-07-29] MEDS ORDERED: Albuterol/Ipratropium 3.0-0.5 MG/3 ML Neb Soln NEB PRN (17:53)
[2020-07-30 06:53] LABS: CARBON DIOXIDE,CO2 21.9 mmol/L (21.0-32.0)
[2020-07-30] MEDS: Nystatin Topical Powder 15 GM Bottle TOP SCH ×3 (07:00→22:43)
[2020-07-30] MEDS: Levothyroxine 75 MCG Tab PO SCH (07:12)
[2020-07-30] MEDS: Ferrous Sulfate 325 MG Tab PO SCH ×2 (08:59→16:20)
[2020-07-30] MEDS: Sertraline 50 MG Tab PO SCH (09:00)
[2020-07-30] MEDS: atorvaSTATin 40 MG Tab PO SCH (09:00)
[2020-07-30] MEDS: Multivitamin Tab PO SCH (09:00)
[2020-07-30] MEDS: Amiodarone 200 MG Tab PO SCH (09:00)
[2020-07-30] MEDS: traMADol 50 MG Tab PO PRN (10:41)
--- NOTE | 2020-07-30 13:22 | PCM.PN ---
- General Info Date of Service: 07/30/20 Admission Dx/Problem (Free Text): Admission Diagnosis/Problem Admission Diagnosis/Problem Cellulitis Subjective Update: sitting at bedside, Denies any chest pain shortness of breath. leg pain in slightly better Functional Status: Reports: Pain Controlled, Tolerating Diet, Ambulating - Review of Systems General: Reports: Fever. Denies: Weakness, Fatigue Pulmonary: Denies: Shortness of Breath, Pleuritic Chest Pain Cardiovascular: Denies: Chest Pain, Palpitations, Dyspnea on Exertion Gastrointestinal: Denies: Abdominal Pain, Constipation, Decreased Appetite 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: Denies: Dysuria, Frequency, Burning, Pain Musculoskeletal: Reports: Leg Pain, Foot Pain. Denies: Neck Pain, Shoulder Pain Skin: Reports: Rash. Denies: Cyanosis - Patient Data Vitals - Most Recent: Last Vital Signs Temp 35.8 C L 07/30/20 11:00 Pulse 54 L 07/30/20 11:00 Resp 16 07/30/20 11:00 BP 92/47 L 07/30/20 11:00 Pulse Ox 96 07/30/20 11:00 Weight - Most Recent: 104.825 kg I&O - Last 24 Hours: Intake & Output 07/29/20 07/30/20 07/30/20 22:59 06:59 14:59 Intake Total 710 500 Output Total 650 200 Balance 60 300 Lab Results Last 24 Hours: Laboratory Results - last 24 hr 07/29/20 07/30/20 07/30/20 Range/Units 14:40 06:15 06:15 WBC 6.25 (4.0-11.0) K/uL RBC 2.96 L (4.30-5.90) M/uL Hgb 8.7 L (12.0-16.0) g/dL Hct 27.9 L (36.0-46.0) % MCV 94.3 (80.0-98.0) fL MCH 29.4 (27.0-32.0) pg MCHC 31.2 (31.0-37.0) g/dL RDW Std Deviation 60.7 (28.0-62.0) fl RDW Coeff of Frank 18 H (11.0-15.0) % Plt Count 222 (150-400) K/uL MPV 12.50 H (7.40-12.00) fL Neut % (Auto) 71.1 (48.0-80.0) % Lymph % (Auto) 18.9 (16.0-40.0) % [place] % (Auto) 6.7 (0.0-15.0) % Eos % (Auto) 3.0 (0.0-7.0) % Baso % (Auto) 0.3 (0.0-1.5) % Neut # (Auto) 4.4 (1.4-5.7) K/uL Lymph # (Auto) 1.2 (0.6-2.4) K/uL [place] # (Auto) 0.4 (0.0-0.8) K/uL Eos # (Auto) 0.2 (0.0-0.7) K/uL Baso # (Auto) 0.0 (0.0-0.1) K/uL Nucleated RBC % 0.0 /100WBC Nucleated RBCs # 0 K/uL INR Sodium 142 (136-145) mmol/L Potassium 5.0 (3.5-5.1) mmol/L Chloride 112 H (98-107) mmol/L Carbon Dioxide 21.9 (21.0-32.0) mmol/L BUN 46 H (7.0-18.0) mg/dL Creatinine 2.0 H (0.6-1.0) mg/dL Est Cr Clr Drug Dosing 21.65 mL/min Estimated GFR (MDRD) 24.6 ml/min Glucose 80 (74-106) mg/dL Calcium 8.2 L (8.5-10.1) mg/dL Phosphorus 2.8 (2.6-4.7) mg/dL Magnesium 1.9 (1.8-2.4) mg/dL Vancomycin Trough 27.0 H (5.0-10.0) ug/mL 07/30/20 Range/Units 06:15 WBC (4.0-11.0) K/uL RBC (4.30-5.90) M/uL Hgb (12.0-16.0) g/dL Hct (36.0-46.0) % MCV (80.0-98.0) fL MCH (27.0-32.0) pg MCHC (31.0-37.0) g/dL RDW Std Deviation (28.0-62.0) fl RDW Coeff of Frank (11.0-15.0) % Plt Count (150-400) K/uL MPV (7.40-12.00) fL Neut % (Auto) (48.0-80.0) % Lymph % (Auto) (16.0-40.0) % [place] % (Auto) (0.0-15.0) % Eos % (Auto) (0.0-7.0) % Baso % (Auto) (0.0-1.5) % Neut # (Auto) (1.4-5.7) K/uL Lymph # (Auto) (0.6-2.4) K/uL [place] # (Auto) (0.0-0.8) K/uL Eos # (Auto) (0.0-0.7) K/uL Baso # (Auto) (0.0-0.1) K/uL Nucleated RBC % /100WBC Nucleated RBCs # K/uL INR 3.56 Sodium (136-145) mmol/L Potassium (3.5-5.1) mmol/L Chloride (98-107) mmol/L Carbon Dioxide (21.0-32.0) mmol/L BUN (7.0-18.0) mg/dL Creatinine (0.6-1.0) mg/dL Est Cr Clr Drug Dosing mL/min Estimated GFR (MDRD) ml/min Glucose (74-106) mg/dL Calcium (8.5-10.1) mg/dL Phosphorus (2.6-4.7) mg/dL Magnesium (1.8-2.4) mg/dL Vancomycin Trough (5.0-10.0) ug/mL Edgardo Results Last 24 Hours: Microbiology 07/27/20 11:50 Aerobic Blood Culture - Preliminary Blood - Venous - Lab Draw NO GROWTH AFTER 3 DAYS Anaerobic Blood Culture - Preliminary NO GROWTH AFTER 3 DAYS 07/27/20 11:15 Aerobic Blood Culture - Preliminary Blood - Venous NO GROWTH AFTER 3 DAYS Anaerobic Blood Culture - Preliminary NO GROWTH AFTER 3 DAYS Med Orders - Current: Current Medications Acetaminophen (Tylenol) 650 mg PO Q4H PRN PRN Reason: Pain (Mild 1-3)/fever Last Admin: 07/29/20 04:00 Dose: 650 mg Documented by: Albuterol/Ipratropium (Duoneb 3.0-0.5 Mg/3 Ml) 3 ml NEB Q4HRRT PRN PRN Reason: Dyspnea Last Admin: 07/29/20 18:07 Dose: 3 ml Documented by: Amiodarone HCl (Cordarone) 200 mg PO DAILY [facility] Last Admin: 07/30/20 09:00 Dose: 200 mg Documented by: Atorvastatin Calcium (Lipitor) 40 mg PO DAILY [facility] Last Admin: 07/30/20 09:00 Dose: 40 mg Documented by: Docusate Sodium (Colace) 100 mg PO BID PRN PRN Reason: Constipation Ferrous Sulfate (Ferrous Sulfate) 325 mg PO BIDMEALS [facility] Last Admin: 07/30/20 08:59 Dose: 325 mg Documented by: Hydroxyzine HCl (Atarax) 25 mg PO TID PRN PRN Reason: Itching Last Admin: 07/27/20 16:40 Dose: 25 mg Documented by: Vancomycin HCl 1.5 gm/ Premix 300 mls @ 150 mls/hr IV Q24H [facility] Last Admin: 07/29/20 15:07 Dose: 150 mls/hr Documented by: Levothyroxine Sodium (Levothyroxine) 75 mcg PO ACBREAKFAST [facility] Last Admin: 07/30/20 07:12 Dose: 75 mcg Documented by: Multivitamins/Minerals/Vitamin C (Tab-A-Deric) 1 tab PO DAILY [facility] Last Admin: 07/30/20 09:00 Dose: 1 tab Documented by: Nystatin (Nystop) 0 gm TOP TID [facility] Last Admin: 07/30/20 07:00 Dose: 1 applic Documented by: Ondansetron HCl (Zofran) 4 mg IVPUSH Q4H PRN PRN Reason: Nausea Last Admin: 07/29/20 21:39 Dose: 4 mg Documented by: Sertraline HCl (Zoloft) 50 mg PO DAILY [facility] Last Admin: 07/30/20 09:00 Dose: 50 mg Documented by: Sodium Chloride (Saline Flush) 2.5 ml FLUSH ASDIRECTED PRN PRN Reason: Keep Vein Open Tramadol HCl (Ultram) 50 mg PO Q8H PRN PRN Reason: Pain Last Admin: 07/30/20 10:41 Dose: 50 mg Documented by: Vancomycin HCl (Pharmacy To Dose - Vancomycin) 1 dose .XX ASDIRECTED [facility] Warfarin Sodium (Coumadin Ask) 1 each PO DAILY@1400 [facility] Last Admin: 07/29/20 14:55 Dose: Not Given Documented by: Zinc Acetate/Diphenhydramine (Benadryl Itch Stopping Crm) 0 gm TOP ASDIRECTED PRN PRN Reason: Itching Discontinued Medications Amiodarone HCl (Cordarone) 200 mg PO BID [facility] Last Admin: 07/27/20 20:23 Dose: Not Given Documented by: Amiodarone HCl (Cordarone) 200 mg PO BID [facility] Last Admin: 07/29/20 11:45 Dose: Not Given Documented by: Vancomycin HCl 1.5 gm/ Premix 300 mls @ 300 mls/hr IV ONETIME ONE Stop: 07/27/20 13:06 Last Admin: 07/27/20 13:42 Dose: 300 mls/hr Documented by: Sodium Chloride (Normal Saline) 1,000 mls @ 75 mls/hr IV Q13H [facility] Last Admin: 07/28/20 08:50 Dose: 75 mls/hr Documented by: Metoprolol Tartrate (Lopressor) 100 mg PO BID [facility] Last Admin: 07/27/20 22:36 Dose: Not Given Documented by: Warfarin Sodium (Coumadin) 2 mg PO DAILY@1815 ONE Stop: 07/27/20 18:16 Last Admin: 07/27/20 19:02 Dose: 2 mg Documented by: - Exam Quality Assessment: No: Supplemental Oxygen General: Alert, Oriented Neck: Supple, Trachea Midline Lungs: Clear to Auscultation, Normal Respiratory Effort Cardiovascular: Regular Rate, Regular Rhythm Extremities: Leg Pain, Increased Warmth, Redness Skin: Warm, Dry, Rash Sepsis Event Note - Evaluation Sepsis Screening Result: No Definite Risk - Focused Exam Vital Signs: Vital Signs Temp Pulse Resp BP BP Pulse Ox 07/30/20 11:00 35.8 C L 54 L 16 92/47 L 96 07/30/20 07:20 36.1 C 53 L 17 110/51 L 94 L 07/30/20 04:21 35.6 C L 54 L 17 106/50 L 94 L - Problem List & Annotations (1) Acute kidney injury superimposed on CKD SNOMED Code(s): 76890340 Code(s): N17.9 - ACUTE KIDNEY FAILURE, UNSPECIFIED; N18.9 - CHRONIC KIDNEY DISEASE, UNSPECIFIED Status: Acute Current Visit: Yes (2) Cellulitis SNOMED Code(s): 503408080 Code(s): L03.90 - CELLULITIS, UNSPECIFIED Status: Acute Priority: High Current Visit: Yes Qualifiers: Site of cellulitis: extremity Site of cellulitis of extremity: lower extremity Laterality: left Qualified Code(s): L03.116 - Cellulitis of left lower limb (3) Chronic venous stasis dermatitis SNOMED Code(s): 11622827, 04661266 Code(s): I87.2 - VENOUS INSUFFICIENCY (CHRONIC) (PERIPHERAL) Status: Acute Current Visit: Yes (4) History of CVA (cerebrovascular accident) SNOMED Code(s): 925025514 Code(s): Z86.73 - PRSNL HX OF TIA (TIA), AND CEREB INFRC W/O RESID DEFICITS Status: Chronic Current Visit: Yes (5) Lymphedema SNOMED Code(s): 156480924 Code(s): I89.0 - LYMPHEDEMA, NOT ELSEWHERE CLASSIFIED Status: Chronic Current Visit: Yes (6) History of atrial fibrillation SNOMED Code(s): 160197978 Code(s): Z86.79 - PERSONAL HISTORY OF OTHER DISEASES OF THE CIRCULATORY SYSTEM Status: Acute Current Visit: No (7) Weakness SNOMED Code(s): 04916838 Code(s): R53.1 - WEAKNESS Status: Acute Current Visit: No - Problem List Review Problem List Initiated/Reviewed/Updated: Yes - My Orders Last 24 Hours: My Active Orders 07/30/20 09:00 Amiodarone [Cordarone] 200 mg PO DAILY - Plan Plan:: This 69-year-old female admitted with left lower leg cellulitis, LIZ on CKD, and drug rash 1. Left lower extremity cellulitis with chronic lower leg wounds -We will continue vancomycin pharmacy to dose -Encouraged elevation of extremities to lessen edema -Consult wound care -Consult OT to evaluate for lymphedema wraps - Continue dressing changes to multiple leg wounds, per orders daily 2. ILZ on CKD -Hold nephrotoxic medications -Stop normal saline at 75. Renal function improved to near baseline -Monitor daily -Obtain UA as well as urine sodium and creatinine for FENA we will place straight cath order to obtain sample this morning. 3. Drug rash: - will monitor -Benadryl topically as needed itching 4. Atrial fibrillation/HTN -C INR 3.5 this morning pharmacy to dose Coumadin. -decrease dose of amiodarone -Bradycardia noted will place on telemetry. -Hold metoprolol 5. lymphedema -Consult OT -Encourage elevation of extremities -Hold Lasix for now due to LIZ VTE prophylaxis: Coumadin CODE STATUS: full code Dispo: 2 to 3 days
[2020-07-30] MEDS: diphenhydrAMINE/Zinc Acetate 1% Crm 28.3 GM Tube TOP PRN ×2 (14:15→22:55)
[2020-07-31] MEDS: diphenhydrAMINE/Zinc Acetate 1% Crm 28.3 GM Tube TOP PRN ×2 (06:35→14:55)
[2020-07-31] MEDS: Nystatin Topical Powder 15 GM Bottle TOP SCH ×2 (06:35→14:55)
[2020-07-31] MEDS: Levothyroxine 75 MCG Tab PO SCH (06:36)
[2020-07-31 07:31] LABS: CARBON DIOXIDE,CO2 24.9 mmol/L (21.0-32.0); POTASSIUM,K 4.8 mmol/L (3.5-5.1)
[2020-07-31] MEDS: Multivitamin Tab PO SCH (08:26)
[2020-07-31] MEDS: Amiodarone 200 MG Tab PO SCH (08:27)
[2020-07-31] MEDS: atorvaSTATin 40 MG Tab PO SCH (08:27)
[2020-07-31] MEDS: Sertraline 50 MG Tab PO SCH (08:27)
[2020-07-31] MEDS: Ferrous Sulfate 325 MG Tab PO SCH (08:27)
[2020-07-31] MEDS: traMADol 50 MG Tab PO PRN (08:32)
--- NOTE | 2020-07-31 12:04 | PCM.DCSUM1 ---
Discharge Summary - Hospital Course Free Text/Narrative:: This 69-year-old female with PMH of hypothyroidism, atrial fibrillation on chronic anticoagulation with Coumadin, CKD, chronic lymphedema to bilateral lower extremities HTN MRSA and recent C. difficile infection, chronic venous stasis dermatitis to bilateral lower extremities, and CVA presented to the ER today after seeing Dr. Barkley in her office. At clinic, patient was very weak and had an episode of vomiting vomited. Per records, She was seen at the clinic on 07/20/2020 for leg ulcer consult, she had been placed on Bactrim for cellulitis on July 14, 2020 for MRSA infection noted to her right leg. Patient states she didn't tolerate the Bactrim well and developed a rash all over her body after she took it. Bilateral legs started weeping the last few days, and has been wrapping them with dry Kerlix. Recently finished oral vancomycin for recent C. difficile diarrhea. She reports that she has been on antibiotics on and off for the last month due to her lower extremities. She has a chronic wounds to bilateral calves, the right worse than the left. Wound VAC was explored for the right to help with healing but this was denied by insurance due to previous use of wound VAC. In the ER no leukocytosis noted hemoglobin 11.1 BUN 46 creatinine 3.0 which is elevated from baseline of 1.8. Chest x-ray negative. Vital signs are stable while in the ER. She was treated with vancomycin in the ER. She will be admitted inpatient for left lower extremity cellulitis and LIZ. Patient was started on IV vancomycin, wound care and OT was consulted, patient received daily wound care, over next few days her cellulitis improved, redness and pain was better, patient also had lymphedema wraps in place. Patients LIZ also resolved,. Patients Heart rate was in low 50 to high 40s, no chest pain, or SOB, her dose of amiodarone was decreased, her Coumadin was held as well due to her INR being supratherapeutic. Patient was eventually medially stable for dc and discharged on Oritavancin 1200 mg infusion once. Patient was recommend to boogie dewey her PCP and surgeon upon dc. - Discharge Data Discharge Date: 07/31/20 Discharge Disposition: Home, Self-Care 01 Condition: Stable - Referral to Home Health Primary Care Physician: Rajiv Palomino MD - Discharge Diagnosis/Problem(s) (1) Acute kidney injury superimposed on CKD SNOMED Code(s): 41987016 ICD Code: N17.9 - ACUTE KIDNEY FAILURE, UNSPECIFIED; N18.9 - CHRONIC KIDNEY D ISEASE, UNSPECIFIED Status: Acute Current Visit: Yes (2) Cellulitis SNOMED Code(s): 542314986 ICD Code: L03.90 - CELLULITIS, UNSPECIFIED Status: Acute Priority: High Current Visit: Yes Qualifiers: Site of cellulitis: extremity Site of cellulitis of extremity: lower extremity Laterality: left Qualified Code(s): L03.116 - Cellulitis of left lower limb (3) Chronic venous stasis dermatitis SNOMED Code(s): 95131626, 98856192 ICD Code: I87.2 - VENOUS INSUFFICIENCY (CHRONIC) (PERIPHERAL) Status: Acute Current Visit: Yes (4) History of CVA (cerebrovascular accident) SNOMED Code(s): 124778677 ICD Code: Z86.73 - PRSNL HX OF TIA (TIA), AND CEREB INFRC W/O RESID DEFICITS Status: Chronic Current Visit: Yes (5) Lymphedema SNOMED Code(s): 087407885 ICD Code: I89.0 - LYMPHEDEMA, NOT ELSEWHERE CLASSIFIED Status: Chronic Current Visit: Yes (6) History of atrial fibrillation SNOMED Code(s): 711522520 ICD Code: Z86.79 - PERSONAL HISTORY OF OTHER DISEASES OF THE CIRCULATORY SYSTEM Status: Acute Current Visit: No (7) Weakness SNOMED Code(s): 54574508 ICD Code: R53.1 - WEAKNESS Status: Acute Current Visit: No - Patient Summary/Data Consults: Consultations 07/27/20 14:11 Consult to Wound Care Services [CONS] Routine OT Evaluation and Treatment [CONS] Routine 07/29/20 10:17 Consult to Physical Therapy [PT Evaluation and Treatment] [CONS] Routine - Discharge Plan *PRESCRIPTION DRUG MONITORING PROGRAM REVIEWED*: Not Applicable *COPY OF PRESCRIPTION DRUG MONITORING REPORT IN PATIENT YUMI: Not Applicable Prescriptions/Med Rec: diphenhydrAMINE/Zinc Acetate [Benadryl Itch Stopping Crm] 1 scoop TOP ASDIRECTED PRN #1 tube PRN Reason: Itching Docusate Sodium [Colace] 100 mg PO BID PRN #30 cap PRN Reason: Constipation Amiodarone [Cordarone] 200 mg PO DAILY #30 tablet Nystatin [Nystop] 1 unit TOP TID #1 bottle Oritavancin Diphosphate [Orbactiv] 1,200 mg IV ONETIME #1 vial Home Medications: Home Meds Metoprolol Tartrate 100 mg PO BID 06/24/17 [History] Sertraline HCl 50 mg PO DAILY 03/15/18 [History] hydrOXYzine HCL [hydrOXYzine] 25 mg PO TID PRN 08/20/18 [History] Furosemide [Lasix] 20 mg PO DAILY 04/20/19 [History] Levothyroxine Sodium [Levo-T] 75 mcg PO ACBREAKFAST 04/20/19 [History] Multivitamin/Iron/Folic Acid [Centrum Women Tablet] 1 tab PO DAILY 05/06/19 [History] Ferrous Sulfate 325 mg PO BIDMEALS 07/27/20 [History] Warfarin [Coumadin] 1 mg PO SUTUWEFRSA@1400 07/27/20 [History] Warfarin [Coumadin] 2 mg PO MOTH@1400 07/27/20 [History] atorvaSTATin Calcium [Atorvastatin Calcium] 40 mg PO DAILY 07/27/20 [History] traMADol [Ultram] 50 mg PO Q8H PRN 07/27/20 [History] Amiodarone [Cordarone] 200 mg PO DAILY #30 tablet 07/31/20 [Rx] Docusate Sodium [Colace] 100 mg PO BID PRN #30 cap 07/31/20 [Rx] Nystatin [Nystop] 1 unit TOP TID #1 bottle 07/31/20 [Rx] Oritavancin Diphosphate [Orbactiv] 1,200 mg IV ONETIME #1 vial 07/31/20 [Rx] diphenhydrAMINE/Zinc Acetate [Benadryl Itch Stopping Crm] 1 scoop TOP ASDIRECTED PRN #1 tube 07/31/20 [Rx] Patient Handouts: Cellulitis, Adult, [id number] Referrals: Pamela Phillips NP [Nurse Practitioner] - 08/05/20 3:00 pm - Discharge Summary/Plan Comment DC Time >30 min.: No - Patient Data Vitals - Most Recent: Last Vital Signs Temp 36.6 C 07/31/20 08:22 Pulse 62 07/31/20 08:22 Resp 16 07/31/20 08:22 BP 132/63 07/31/20 08:22 Pulse Ox 93 L 07/31/20 08:22 Weight - Most Recent: 104.417 kg I&O - Last 24 hours: Intake & Output 07/30/20 07/31/20 07/31/20 22:59 06:59 14:59 Intake Total 800 320 Output Total 100 400 Balance 700 -80 Lab Results - Last 24 hrs: Laboratory Results - last 24 hr 07/31/20 07/31/20 Range/Units 06:55 06:55 WBC 6.26 (4.0-11.0) K/uL RBC 3.08 L (4.30-5.90) M/uL Hgb 9.0 L (12.0-16.0) g/dL Hct 28.9 L (36.0-46.0) % MCV 93.8 (80.0-98.0) fL MCH 29.2 (27.0-32.0) pg MCHC 31.1 (31.0-37.0) g/dL RDW Std Deviation 62.5 H (28.0-62.0) fl RDW Coeff of Frank 18 H (11.0-15.0) % Plt Count 273 (150-400) K/uL MPV 12.50 H (7.40-12.00) fL Add Manual Diff YES Neutrophils % (Manual) 56 (48.0-80.0) % Band Neutrophils % 2 % Lymphocytes % (Manual) 26 (16.0-40.0) % Monocytes % (Manual) 10 (0.0-15.0) % Eosinophils % (Manual) 6 (0.0-7.0) % Nucleated RBC % 0.0 /100WBC Absolute Seg Neuts 3.5 (1.4-5.7) Band Neutrophils # 0.1 Lymphocytes # (Manual) 1.6 (0.6-2.4) Monocytes # (Manual) 0.6 (0.0-0.8) Eosinophils # (Manual) 0.4 (0.0-0.7) Nucleated RBCs # 0 K/uL Sodium 144 (136-145) mmol/L Potassium 4.8 (3.5-5.1) mmol/L Chloride 112 H (98-107) mmol/L Carbon Dioxide 24.9 (21.0-32.0) mmol/L BUN 46 H (7.0-18.0) mg/dL Creatinine 1.7 H (0.6-1.0) mg/dL Est Cr Clr Drug Dosing 25.47 mL/min Estimated GFR (MDRD) 29.7 ml/min Glucose 70 L (74-106) mg/dL Calcium 8.5 (8.5-10.1) mg/dL Phosphorus 2.8 (2.6-4.7) mg/dL Magnesium 2.0 (1.8-2.4) mg/dL YANCY Results - Last 24 hrs: Microbiology 07/27/20 11:50 Aerobic Blood Culture - Preliminary Blood - Venous - Lab Draw NO GROWTH AFTER 4 DAYS Anaerobic Blood Culture - Preliminary NO GROWTH AFTER 4 DAYS 07/27/20 11:15 Aerobic Blood Culture - Preliminary Blood - Venous NO GROWTH AFTER 4 DAYS Anaerobic Blood Culture - Preliminary NO GROWTH AFTER 4 DAYS Med Orders - Current: Current Medications Acetaminophen (Tylenol) 650 mg PO Q4H PRN PRN Reason: Pain (Mild 1-3)/fever Last Admin: 07/29/20 04:00 Dose: 650 mg Documented by: Albuterol/Ipratropium (Duoneb 3.0-0.5 Mg/3 Ml) 3 ml NEB Q4HRRT PRN PRN Reason: Dyspnea Last Admin: 07/29/20 18:07 Dose: 3 ml Documented by: Amiodarone HCl (Cordarone) 200 mg PO DAILY [facility] Last Admin: 07/31/20 08:27 Dose: 200 mg Documented by: Atorvastatin Calcium (Lipitor) 40 mg PO DAILY [facility] Last Admin: 07/31/20 08:27 Dose: 40 mg Documented by: Docusate Sodium (Colace) 100 mg PO BID PRN PRN Reason: Constipation Ferrous Sulfate (Ferrous Sulfate) 325 mg PO BIDMEALS [facility] Last Admin: 07/31/20 08:27 Dose: 325 mg Documented by: Hydroxyzine HCl (Atarax) 25 mg PO TID PRN PRN Reason: Itching Last Admin: 07/27/20 16:40 Dose: 25 mg Documented by: Vancomycin HCl 1.25 gm/ Sodium (Chloride) 250 mls @ 166.667 mls/hr IV Q24H [facility] Levothyroxine Sodium (Levothyroxine) 75 mcg PO ACBREAKFAST [facility] Last Admin: 07/31/20 06:36 Dose: 75 mcg Documented by: Multivitamins/Minerals/Vitamin C (Tab-A-Deric) 1 tab PO DAILY [facility] Last Admin: 07/31/20 08:26 Dose: 1 tab Documented by: Nystatin (Nystop) 0 gm TOP TID [facility] Last Admin: 07/31/20 06:35 Dose: 1 applic Documented by: Ondansetron HCl (Zofran) 4 mg IVPUSH Q4H PRN PRN Reason: Nausea Last Admin: 07/29/20 21:39 Dose: 4 mg Documented by: Sertraline HCl (Zoloft) 50 mg PO DAILY [facility] Last Admin: 07/31/20 08:27 Dose: 50 mg Documented by: Sodium Chloride (Saline Flush) 2.5 ml FLUSH ASDIRECTED PRN PRN Reason: Keep Vein Open Tramadol HCl (Ultram) 50 mg PO Q8H PRN PRN Reason: Pain Last Admin: 07/31/20 08:32 Dose: 50 mg Documented by: Vancomycin HCl (Pharmacy To Dose - Vancomycin) 1 dose .XX ASDIRECTED [facility] Warfarin Sodium (Coumadin Ask) 1 each PO DAILY@1400 [facility] Last Admin: 07/30/20 13:50 Dose: Not Given Documented by: Zinc Acetate/Diphenhydramine (Benadryl Itch Stopping Crm) 0 gm TOP ASDIRECTED PRN PRN Reason: Itching Last Admin: 07/31/20 06:35 Dose: 1 applic Documented by: Discontinued Medications Amiodarone HCl (Cordarone) 200 mg PO BID [facility] Last Admin: 07/27/20 20:23 Dose: Not Given Documented by: Amiodarone HCl (Cordarone) 200 mg PO BID [facility] Last Admin: 07/29/20 11:45 Dose: Not Given Documented by: Vancomycin HCl 1.5 gm/ Premix 300 mls @ 300 mls/hr IV ONETIME ONE Stop: 07/27/20 13:06 Last Admin: 07/27/20 13:42 Dose: 300 mls/hr Documented by: Sodium Chloride (Normal Saline) 1,000 mls @ 75 mls/hr IV Q13H [facility] Last Admin: 07/28/20 08:50 Dose: 75 mls/hr Documented by: Vancomycin HCl 1.5 gm/ Premix 300 mls @ 150 mls/hr IV Q24H [facility] Last Admin: 07/29/20 15:07 Dose: 150 mls/hr Documented by: Metoprolol Tartrate (Lopressor) 100 mg PO BID [facility] Last Admin: 07/27/20 22:36 Dose: Not Given Documented by: Warfarin Sodium (Coumadin) 2 mg PO DAILY@1815 ONE Stop: 07/27/20 18:16 Last Admin: 07/27/20 19:02 Dose: 2 mg Documented by:
[2020-07-31 12:34] VITALS: BP 112/56; PULSE 65
== END 2020-07-31 15:30 | disposition home or self-care (01) | DRG 683 ==
LOC: MW.ED 10:51 → MW.MS 13:07
PROVIDERS: ADMIT Internal Medicine; ATTEND Internal Medicine
DX: N17.9 Acute kidney failure, unspecified (principal); L03.116 Cellulitis of left lower limb; R21 Rash and other nonspecific skin eruption; H54.7 Unspecified visual loss; I48.91 Unspecified atrial fibrillation; I87.2 Venous insufficiency (chronic) (peripheral); I10 Essential (primary) hypertension; R53.1 Weakness; I12.9 Hypertensive chronic kidney disease with stage 1 through stage 4 chronic kidney disease, or unspecified chronic kidney disease; E03.9 Hypothyroidism, unspecified; L27.0 Generalized skin eruption due to drugs and medicaments taken internally; N18.30 Chronic kidney disease, stage 3 unspecified; K21.9 Gastro-esophageal reflux disease without esophagitis; K44.9 Diaphragmatic hernia without obstruction or gangrene; Z90.49 Acquired absence of other specified parts of digestive tract; K22.70 Barrett's esophagus without dysplasia; Z86.718 Personal history of other venous thrombosis and embolism; Z87.440 Personal history of urinary (tract) infections; Z86.73 Personal history of transient ischemic attack (TIA), and cerebral infarction without residual deficits; M19.90 Unspecified osteoarthritis, unspecified site; E66.9 Obesity, unspecified; I89.0 Lymphedema, not elsewhere classified; Z98.84 Bariatric surgery status; Z91.040 Latex allergy status; Z88.7 Allergy status to serum and vaccine; Z91.048 Other nonmedicinal substance allergy status; Z79.01 Long term (current) use of anticoagulants; Z79.890 Hormone replacement therapy; Z79.899 Other long term (current) drug therapy; Z20.828 Contact with and (suspected) exposure to other viral communicable diseases
CPT/HCPCS: 36415; 80053; 83605; 83735; 85025; 85610; 86140; 87040 ×2; 99284; U0002; 36410; 71046; 71046-26; 73590-26-RT; 73590-RT; 80048; 80202; 81003; 82570; 82962; 84100; 84300; 97140-GO; 97165-GO; 99283; A9270-GY; J2405; J3370; J7030; J7620-GY

== ENCOUNTER 2023-07-22 15:44 | Observation (INO) | payer MEDICARE, BC ==
[2023-07-22] MEDS ORDERED: Sodium Chloride 0.9% 2.5 ML Syringe FLUSH PRN (16:35)
[2023-07-22] MEDS ORDERED: Sodium Chloride 0.9% 10 ML Syringe FLUSH PRN (16:35)
[2023-07-22] MEDS ORDERED: Sodium Chloride 0.9% 1,000 ML IV ONE ×2 (16:35→21:23)
[2023-07-22 18:17] LABS: BASOPHILS ABSOLUTE AUTO 0.02 K/uL (0.00-0.20); BASOPHILS PERCENT AUTO 0.1 % (0.0-1.0); HEMATOCRIT 33.9 % (37.0-47.0); HEMOGLOBIN 11.3 g/dL (12.0-16.0); IMMATURE GRAN ABSOLUTE AUTO 0.09 K/uL (0.00-0.05); IMMATURE GRAN PERCENT AUTO 0.5 % (0.0-0.4); LYMPHOCYTES ABSOLUTE AUTO 0.63 K/uL (1.00-4.80); LYMPHOCYTES PERCENT AUTO 3.7 % (24.0-44.0); MEAN CORPUSCULAR HEMOGLOBIN 32.8 pg (28.0-32.0); MEAN CORPUSCULAR HGB CONC 33.3 g/dL (32.0-36.0); MEAN CORPUSCULAR VOLUME 98.3 fL (83.0-99.0); MEAN PLATELET VOLUME 12.1 fL (9.4-12.3); MONOCYTES ABSOLUTE AUTO 0.78 K/uL (0.00-0.80); MONOCYTES PERCENT AUTO 4.6 % (0.0-8.0); NEUTROPHILS ABSOLUTE AUTO 15.57 K/uL (1.80-7.70); NEUTROPHILS PERCENT AUTO 91.1 % (41.0-71.0); PLATELET COUNT,PLT 169 K/uL (150-400); RED BLOOD CELL COUNT 3.45 M/uL (4.10-5.30); WHITE BLOOD CELL COUNT,WBC 17.09 K/uL (3.9-11.3)
[2023-07-22 18:26] LABS: CORONAVIRUS COVID-19 NAA NEGATIVE (NEGATIVE); INFLUENZA A NAA NEGATIVE (NEGATIVE); INFLUENZA B NAA NEGATIVE (NEGATIVE); RESPIRATORY SYNCYTIAL VIR NAA NEGATIVE (NEGATIVE)
[2023-07-22 18:38] LABS: A/G RATIO 0.7 (0.9-1.6); ALBUMIN 3.3 g/dL (3.4-5.0); BILIRUBIN TOTAL 1.7 mg/dL (0.2-1.0); CALCIUM 9.6 mg/dL (8.5-10.1); CARBON DIOXIDE,CO2 25.8 mmol/L (21.0-32.0); CREATININE 2.6 mg/dL (0.6-1.0); EST CRCL DRUG DOSING (CG) 15.94 mL/min; POTASSIUM,K 3.8 mmol/L (3.5-5.1); PROTEIN TOTAL,TP 8.3 g/dL (6.4-8.2)
[2023-07-22] MEDS ORDERED: Dicyclomine 10 MG Cap PO ONE (21:20)
[2023-07-22] MEDS ORDERED: Ondansetron 4 MG/2 ML SDV IVPUSH PRN (23:47)
[2023-07-23] MEDS: Sodium Chloride 0.9% 1,000 ML IV SCH ×3 (05:11→22:06)
[2023-07-23 05:55] LABS: BASOPHILS ABSOLUTE AUTO 0.02 K/uL (0.00-0.20); BASOPHILS PERCENT AUTO 0.2 % (0.0-1.0); EOSINOPHILS ABSOLUTE AUTO 0.04 K/uL (0.00-0.45); EOSINOPHILS PERCENT AUTO 0.3 % (0.0-6.0); HEMATOCRIT 28.4 % (37.0-47.0); HEMOGLOBIN 9.2 g/dL (12.0-16.0); IMMATURE GRAN ABSOLUTE AUTO 0.04 K/uL (0.00-0.05); IMMATURE GRAN PERCENT AUTO 0.3 % (0.0-0.4); LYMPHOCYTES ABSOLUTE AUTO 1.23 K/uL (1.00-4.80); LYMPHOCYTES PERCENT AUTO 10.2 % (24.0-44.0); MEAN CORPUSCULAR HEMOGLOBIN 32.1 pg (28.0-32.0); MEAN CORPUSCULAR HGB CONC 32.4 g/dL (32.0-36.0); MEAN PLATELET VOLUME 12.4 fL (9.4-12.3); MONOCYTES ABSOLUTE AUTO 0.61 K/uL (0.00-0.80); MONOCYTES PERCENT AUTO 5.1 % (0.0-8.0); NEUTROPHILS ABSOLUTE AUTO 10.12 K/uL (1.80-7.70); NEUTROPHILS PERCENT AUTO 83.9 % (41.0-71.0); PLATELET COUNT,PLT 132 K/uL (150-400); RED BLOOD CELL COUNT 2.87 M/uL (4.10-5.30); WHITE BLOOD CELL COUNT,WBC 12.06 K/uL (3.9-11.3)
[2023-07-23 06:29] LABS: A/G RATIO 0.6 (0.9-1.6); ALBUMIN 2.5 g/dL (3.4-5.0); BILIRUBIN TOTAL 0.9 mg/dL (0.2-1.0); CALCIUM 8.8 mg/dL (8.5-10.1); CARBON DIOXIDE,CO2 26.8 mmol/L (21.0-32.0); CREATININE 2.3 mg/dL (0.6-1.0); EST CRCL DRUG DOSING (CG) 18.02 mL/min; POTASSIUM,K 3.6 mmol/L (3.5-5.1); PROTEIN TOTAL,TP 6.5 g/dL (6.4-8.2)
[2023-07-23] MEDS: Levothyroxine 75 MCG Tab PO SCH (06:51)
[2023-07-23] MEDS: Metoprolol Tartrate 25 MG Tab PO SCH ×2 (08:08→20:31)
[2023-07-23] MEDS: Apixaban 5 MG Tab PO SCH ×2 (08:09→20:31)
[2023-07-23] MEDS: Sertraline 50 MG Tab PO SCH (08:09)
[2023-07-23] MEDS: Amiodarone 200 MG Tab PO SCH (08:09)
[2023-07-23] MEDS ORDERED: FLU (Fluad Quad) 2023-24(65UP)/MF59C/PF 60 MCG/0.5 ML Syringe IM ONE (10:00)
[2023-07-23 12:18] LABS: APPEARANCE,URINE SLT CLOUDY; BILIRUBIN,URINE NEGATIVE (NEGATIVE); COLOR,URINE YELLOW; GLUCOSE,URINE NEGATIVE (NEGATIVE); KETONES,URINE NEGATIVE (NEGATIVE); LEUKOCYTE ESTERASE,URINE TRACE (NEGATIVE); NITRITE,URINE POSITIVE (NEGATIVE); OCCULT BLOOD,URINE SMALL (NEGATIVE); PH,URINE 5.5 (5.0-8.0); PROTEIN,URINE NEGATIVE (NEGATIVE); UROBILINOGEN,URINE 0.2 EU/dL (<2.0)
[2023-07-23 12:27] LABS: BACTERIA,URINE 2+ (NEGATIVE); EPITHELIAL CELLS,URINE FEW (NONE-FEW); MUCUS,URINE LIGHT (NONE-MOD); RBC,URINE NONE SEEN (0-2/HPF)
[2023-07-23] MEDS: cefTRIAXone 1 GM in Sodium Chloride 0.9% 50 ML IV SCH (13:06)
[2023-07-23] MEDS ORDERED: rOPINIRole 1 MG Tab PO SCH (21:00)
[2023-07-24 05:51] LABS: BASOPHILS ABSOLUTE AUTO 0.02 K/uL (0.00-0.20); BASOPHILS PERCENT AUTO 0.2 % (0.0-1.0); EOSINOPHILS ABSOLUTE AUTO 0.07 K/uL (0.00-0.45); EOSINOPHILS PERCENT AUTO 0.8 % (0.0-6.0); HEMATOCRIT 25.6 % (37.0-47.0); HEMOGLOBIN 8.5 g/dL (12.0-16.0); IMMATURE GRAN ABSOLUTE AUTO 0.02 K/uL (0.00-0.05); IMMATURE GRAN PERCENT AUTO 0.2 % (0.0-0.4); LYMPHOCYTES ABSOLUTE AUTO 0.95 K/uL (1.00-4.80); LYMPHOCYTES PERCENT AUTO 10.4 % (24.0-44.0); MEAN CORPUSCULAR HEMOGLOBIN 32.6 pg (28.0-32.0); MEAN CORPUSCULAR HGB CONC 33.2 g/dL (32.0-36.0); MEAN CORPUSCULAR VOLUME 98.1 fL (83.0-99.0); MEAN PLATELET VOLUME 12.4 fL (9.4-12.3); MONOCYTES ABSOLUTE AUTO 0.64 K/uL (0.00-0.80); NEUTROPHILS PERCENT AUTO 81.4 % (41.0-71.0); PLATELET COUNT,PLT 139 K/uL (150-400); RED BLOOD CELL COUNT 2.61 M/uL (4.10-5.30)
[2023-07-24] MEDS: Sodium Chloride 0.9% 1,000 ML IV SCH (06:14)
[2023-07-24] MEDS: Levothyroxine 75 MCG Tab PO SCH ×2 (06:14→08:30)
[2023-07-24 06:40] LABS: A/G RATIO 0.6 (0.9-1.6); ALBUMIN 2.2 g/dL (3.4-5.0); BILIRUBIN TOTAL 0.6 mg/dL (0.2-1.0); CALCIUM 8.4 mg/dL (8.5-10.1); CARBON DIOXIDE,CO2 24.2 mmol/L (21.0-32.0); CREATININE 1.8 mg/dL (0.6-1.0); EST CRCL DRUG DOSING (CG) 23.03 mL/min; MAGNESIUM 1.6 mg/dL (1.8-2.4); POTASSIUM,K 3.2 mmol/L (3.5-5.1); PROTEIN TOTAL,TP 6.1 g/dL (6.4-8.2)
[2023-07-24] MEDS ORDERED: Potassium Chloride 20 MEQ Tab.ER PO ONE (07:11)
[2023-07-24] MEDS ORDERED: Magnesium Sulfate/Water 2 GM in Premix Bag 1 BAG IV ONE (07:11)
[2023-07-24] MEDS: Metoprolol Tartrate 25 MG Tab PO SCH (08:36)
[2023-07-24] MEDS: Amiodarone 200 MG Tab PO SCH (08:37)
[2023-07-24] MEDS: Sertraline 50 MG Tab PO SCH (08:37)
[2023-07-24] MEDS: Apixaban 5 MG Tab PO SCH (08:37)
[2023-07-24] MEDS ORDERED: Polyethylene Glycol 3350 Powder 17 GM Packet PO SCH (09:00)
[2023-07-24] MEDS: cefTRIAXone 1 GM in Sodium Chloride 0.9% 50 ML IV SCH (12:16)
[2023-07-24 14:02] VITALS: BP 119/63; PULSE 64
[2023-07-25] MEDS ORDERED: Polyethylene Glycol 3350 Powder 17 GM Packet PO SCH (09:00)
== END 2023-07-24 14:58 | disposition home or self-care (01) ==
LOC: MW.ED 15:44 → MW.MS 20:38
PROVIDERS: ADMIT Internal Medicine; ATTEND Internal Medicine
DX: K52.9 Noninfective gastroenteritis and colitis, unspecified (principal); N39.0 Urinary tract infection, site not specified; I12.9 Hypertensive chronic kidney disease with stage 1 through stage 4 chronic kidney disease, or unspecified chronic kidney disease; N18.9 Chronic kidney disease, unspecified; N17.9 Acute kidney failure, unspecified; I48.91 Unspecified atrial fibrillation; E03.9 Hypothyroidism, unspecified; R09.02 Hypoxemia; E78.00 Pure hypercholesterolemia, unspecified; E66.9 Obesity, unspecified; Z20.822 Contact with and (suspected) exposure to COVID-19; Z79.890 Hormone replacement therapy; Z79.01 Long term (current) use of anticoagulants; Z79.899 Other long term (current) drug therapy; Z88.2 Allergy status to sulfonamides; Z91.040 Latex allergy status; Z91.048 Other nonmedicinal substance allergy status
CPT/HCPCS: 0241U; 36415; 71045; 74176; 80053; 81001; 83690; 83735; 83880; 85025; 87045; 87046; 87086; 87324; 87449; 87899; 90694; 93005; A9270; J0696; J3475; J3490; J7030; 93010; 96360; 96361; 96365; 96367; 96376; 99283; 99285-25; G0378

== ENCOUNTER 2023-07-29 15:23 | Emergency (ER) | payer MEDICARE, BC ==
[2023-07-29 18:58] VITALS: BP 173/73; PULSE 74
[2023-07-29] MEDS ORDERED: Sodium Chloride 0.9% 2.5 ML Syringe FLUSH PRN (19:03)
[2023-07-29] MEDS ORDERED: Sodium Chloride 0.9% 10 ML Syringe FLUSH PRN (19:03)
== END 2023-07-29 19:14 | disposition left against medical advice (07) ==
LOC: MW.ED 15:23
DX: M25.561 Pain in right knee (principal); I89.0 Lymphedema, not elsewhere classified; E03.9 Hypothyroidism, unspecified; N18.9 Chronic kidney disease, unspecified; I48.91 Unspecified atrial fibrillation; I67.9 Cerebrovascular disease, unspecified; E66.9 Obesity, unspecified; Z68.30 Body mass index [BMI] 30.0-30.9, adult; Z88.2 Allergy status to sulfonamides; Z88.7 Allergy status to serum and vaccine; Z91.040 Latex allergy status; Z79.899 Other long term (current) drug therapy; Z86.73 Personal history of transient ischemic attack (TIA), and cerebral infarction without residual deficits
CPT/HCPCS: 93971-26-RT; 93971-RT; 99282; 99284